=== PATIENT | male | born 1935 | race Caucasian/White ===

== ENCOUNTER 2020-02-20 13:51 | Outpatient (REF) | payer MEDICARE, SELFPAY ==
--- NOTE | 2020-02-20 | XR_ITS ---
EXAMINATION: XR LUMBOSACRAL SPINE CLINICAL INFORMATION: Radiculopathy lumbar region COMPARISON: CT abdomen and pelvis 03/13/2019. TECHNIQUE: Three views of the lumbosacral spine. FINDINGS: There is dextrocurvature lumbar spine with multilevel degenerative disc and degenerative facet changes. There is no lumbar vertebral compression or destructive process. There are degenerative disc changes at all 5 levels with disc narrowing and endplate sclerosis and variable bridging osteophytes. There is borderline retrolisthesis L3 on L4. Ossification right iliolumbar ligament is suggested on frontal view. The SI joints and visualized sacrum are unremarkable. IMPRESSION: 1. Diffuse multilevel degenerative disc and degenerative facet changes. 2. Borderline retrolisthesis L3-L4.
== END 2020-02-20 13:52 | disposition home or self-care (01) ==
LOC: HO.HMGCX 13:51
PROVIDERS: PCP Nurse Practitioner Family; Visit Provider Nurse Practitioner Family
DX: M54.16 Radiculopathy, lumbar region (principal); G89.29 Other chronic pain
CPT/HCPCS: 72100

== ENCOUNTER 2020-04-09 14:13 | Outpatient (REF) | payer MEDICARE, SELFPAY ==
--- NOTE | 2020-04-09 | MR_ITS ---
MR LUMBAR SPINE WITHOUT CONTRAST CLINICAL INFORMATION: Evaluate for stenosis. Right-sided nerve root impingement. COMPARISON: Lumbar spine radiographs 02/20/2020. TECHNIQUE: MRI of the lumbar spine was obtained using routine sequences without contrast. FINDINGS: There is transitional anatomy. For the purposes of this report there are hypoplastic ribs versus articulating transverse processes at the lowermost thoracic type segment and L5 is partially sacralized, incorporated into the sacrum bilaterally. Please correlate with plain films prior to any percutaneous or surgical intervention. Rightward convex scoliotic curvature of the lumbar spine. There is grade 1 retrolisthesis of L2 on L3 and L3 on L4 as well as L4 and L5. There is severe disc volume loss at L1-L2 and there is moderate disc volume loss at L2-L3, L3-L4, L4-L5, and T12-L1. There are Modic type I endplate signal changes at L3-L4. Modic type II endplate signal changes at L1-L2 and L2-L3. There are no acute fractures. Vertebral body heights overall maintained. The conus terminates at the T12 level. L1-L2: Diffuse disc osteophyte complex and mild bilateral facet arthropathy. There is no central canal stenosis. There is mild foraminal encroachment bilaterally. L2-L3: There is a diffuse disc osteophyte complex and there is severe bilateral facet arthropathy and ligamentum flavum thickening. Findings in concert result in severe central canal stenosis and moderate bilateral foraminal stenosis with disc osteophyte contacting the extraforaminal L2 nerve roots bilaterally. L3-L4: Diffuse annular disc bulge and severe bilateral facet arthropathy and ligamentum flavum thickening resulting in severe central canal stenosis and moderate bilateral foraminal stenosis with disc osteophyte contacting the extraforaminal left L3 nerve root. L4-L5: Diffuse disc osteophyte complex and severe bilateral facet arthropathy and ligamentum flavum thickening. Findings in concert result in severe bilateral subarticular zone stenosis with compression of the traversing L5 nerve roots bilaterally as well as moderate to severe right and moderate left foraminal stenosis with compression of the exiting right L4 nerve root. L5-S1: Rudimentary disc contour remains normal. No central canal stenosis and no foraminal stenosis. MR/MR lumbar spine wo con IMPRESSION: - There is transitional anatomy. For the purposes of this report there are hypoplastic ribs versus articulating transverse processes at the lowermost thoracic type segment and L5 is partially sacralized, incorporated into the sacrum bilaterally. Please correlate with plain films prior to any percutaneous or surgical intervention. - Advanced spondylitic changes at the L2-L3 and L3-L4 levels result in severe central canal stenosis at both of these levels. Multilevel subarticular zone stenosis and foraminal stenosis with mass effect on multiple traversing and exiting nerve roots as described. There is a rightward convex scoliotic curvature of the lumbar spine. There Modic type I endplate signal changes at L3-L4.
== END 2020-04-09 14:14 | disposition home or self-care (01) ==
LOC: HO.MRI 14:13
PROVIDERS: Visit Provider Physical Medicine & Rehabilitation
DX: G54.9 Nerve root and plexus disorder, unspecified (principal)
CPT/HCPCS: 72148

== ENCOUNTER 2020-04-10 14:16 | Outpatient (REF) | payer MEDICARE, SELFPAY ==
[2020-04-10 17:25] LABS: Prostate Specific Antigen 1.02 ng/mL (<0.05-4.0)
[2020-04-16 00:47] LABS: Testosterone, Total 249 ng/dL (250-1100)
== END 2020-04-10 14:17 | disposition home or self-care (01) ==
LOC: HO.HMGCLDS 14:16
PROVIDERS: PCP Nurse Practitioner Family; Visit Provider Urology
DX: C61 Malignant neoplasm of prostate (principal); R97.20 Elevated prostate specific antigen [PSA]
CPT/HCPCS: 84153; 84403

== ENCOUNTER → 2020-05-07 10:07 | Outpatient (BNVA) | payer MEDICARE, SELFPAY | PROVIDERS: PCP Nurse Practitioner Family; Visit Provider Urology | DX: C61 Malignant neoplasm of prostate (principal) | CPT/HCPCS: Q3014 ==

== ENCOUNTER 2020-08-10 10:34 | Outpatient (REF) | payer MEDICARE, SELFPAY ==
[2020-08-10 14:38] LABS: PSA,Total (Free>4and<10) 3.25 ng/mL (0.00-4.00)
== END 2020-08-10 10:35 | disposition home or self-care (01) ==
LOC: HO.HMGCLDS 10:34
PROVIDERS: PCP Nurse Practitioner Family; Visit Provider Urology
DX: Z12.5 Encounter for screening for malignant neoplasm of prostate (principal); C61 Malignant neoplasm of prostate; N40.1 Benign prostatic hyperplasia with lower urinary tract symptoms; N13.8 Other obstructive and reflux uropathy
CPT/HCPCS: 36415; 84153

== ENCOUNTER → 2020-08-14 10:23 | Outpatient (BNVA) | payer MEDICARE, SELFPAY | PROVIDERS: Visit Provider Urology | DX: C61 Malignant neoplasm of prostate (principal) | CPT/HCPCS: Q3014 ==

== ENCOUNTER 2020-11-16 12:16 | Outpatient (REF) | payer MEDICARE, SELFPAY ==
[2020-11-16 14:46] LABS: Prostate Specific Antigen 7.37 ng/mL (<0.05-4.0)
== END 2020-11-16 12:17 | disposition home or self-care (01) ==
LOC: HO.HMGCLDS 12:16
PROVIDERS: PCP Nurse Practitioner Family; Visit Provider Urology
DX: Z12.5 Encounter for screening for malignant neoplasm of prostate (principal); N13.8 Other obstructive and reflux uropathy; N40.1 Benign prostatic hyperplasia with lower urinary tract symptoms
CPT/HCPCS: 36415; 84153

== ENCOUNTER → 2020-12-01 09:02 | Outpatient (BNVA) | payer MEDICARE, SELFPAY | PROVIDERS: PCP Nurse Practitioner Family; Visit Provider Urology | DX: C61 Malignant neoplasm of prostate (principal) | CPT/HCPCS: 96402; 99212; J9217 ==

== ENCOUNTER 2021-02-25 13:11 | Outpatient (REF) | payer MEDICARE, SELFPAY ==
[2021-02-25 14:43] LABS: Prostate Specific Antigen 0.75 ng/mL (<0.05-4.0)
[2021-03-08 00:12] LABS: Testosterone, Total 8 ng/dL (250-1100)
== END 2021-02-25 13:12 | disposition home or self-care (01) ==
LOC: HO.HMGCLDS 13:11
PROVIDERS: PCP Nurse Practitioner Family; Visit Provider Urology
DX: Z12.5 Encounter for screening for malignant neoplasm of prostate (principal); C61 Malignant neoplasm of prostate
CPT/HCPCS: 36415; 84153; 84403

== ENCOUNTER → 2021-03-04 08:34 | Outpatient (BNVA) | payer MEDICARE, SELFPAY | PROVIDERS: PCP Nurse Practitioner Family; Visit Provider Urology | DX: Z13.89 Encounter for screening for other disorder (principal) | CPT/HCPCS: Q3014 ==

== ENCOUNTER 2021-05-13 11:22 | Outpatient (REF) | payer MEDICARE, SELFPAY ==
[2021-05-13 14:41] LABS: Prostate Specific Antigen 0.36 ng/mL (<0.05-4.0)
[2021-05-18 10:41] LABS: Testosterone, Total 13 ng/dL (250-1100)
== END 2021-05-13 11:23 | disposition home or self-care (01) ==
LOC: HO.HMGCLDS 11:22
PROVIDERS: PCP Nurse Practitioner Family; Visit Provider Urology
DX: Z12.5 Encounter for screening for malignant neoplasm of prostate (principal); C61 Malignant neoplasm of prostate
CPT/HCPCS: 36415; 84153; 84403

== ENCOUNTER → 2021-05-21 08:43 | Outpatient (BNVA) | payer MEDICARE, SELFPAY | PROVIDERS: PCP Nurse Practitioner Family; Visit Provider Urology | DX: C61 Malignant neoplasm of prostate (principal) | CPT/HCPCS: 96402; 99212; J9217 ==

== ENCOUNTER 2021-07-13 10:58 | Outpatient (REF) | payer MEDICARE, SELFPAY ==
--- NOTE | ~2021-07-13 | MM_ITS ---
EXAMINATION: BONE DENSITOMETRY CLINICAL INDICATION: Other specified disorders of bone density and structure. COMPARISON: Baseline BD dated 04/19/2019. TECHNIQUE: Using a [employer] DXA System (software version: 13.1) manufactured by [employer], dual-energy x-ray absorptiometry was performed of the lumbar spine and left hip. The images are of good technical quality. Summary results are attached. FINDINGS: AP SPINE L1-L2 (excluding L3 and L4): The data of L1-L4 has been changed to exclude the L3 and L4 vertebral bodies, because degenerative changes at these levels may cause overestimation of lumbar spine density. Current: BMD 1.381 g/cm2, Z-score 2.1, T-score 1.5, normal, 8.8% decrease from baseline (<5% change is not significant). Baseline: BMD 1.514 g/cm2. LEFT FEMUR, NECK: Current: BMD 0.863 g/cm2, Z-score 0.0, T-score -1.6, osteopenia. Baseline: BMD 0.972 g/cm2. LEFT FEMUR, TOTAL: Current: BMD 0.981 g/cm2, Z-score 0.5, T-score -0.8, normal, 4.4% decrease from baseline (<5% change is not significant). Baseline: BMD 1.026 g/cm2. IDENTIFIED RISK FACTORS: Height loss. HISTORY OF FRACTURE: None listed. MEDICATIONS: Vitamin D. MM/XR DEXA axial skeleton IMPRESSION: 1. DIAGNOSIS: Osteopenia based on the lowest T-score value of -1.6 in the femoral neck applying World Health Organization criteria. 2. 10-YEAR FRACTURE RISK PREDICTION, FRAX: Major osteoporotic fracture (clinical spine, forearm, hip or shoulder) 6.7%. Hip fracture 2.6%. 3. Treatment Recommendations: NOF guidelines recommend consideration for treatment in postmenopausal women and men age 50 and older presenting with the following: -A hip or vertebral (clinical or morphometric) fracture. -T-score less than or equal to -2.5 at the femoral neck or spine after appropriate evaluation to exclude secondary causes. -Low bone mass at the hip or spine and a 10-year fracture probability by FRAX of greater than or equal to 3% for hip fracture or greater than or equal to 20% for major osteoporotic fracture based on the [place] adapted WHO algorithm. 4. Other Recommendations: All treatment decisions require clinical judgment and consideration of individual patient factors, including patient preferences, comorbidities, previous drug use, risk factors not captured in the FRAX model (e.g. frailty, falls, vitamin D deficiency, increased bone turnover, interval significant decline in bone density) and possible under or overestimation of fracture risk by FRAX. Additional medical evaluation for secondary cause of low bone mineral density may be appropriate. FUTURE SCAN RECOMMENDATION: People with diagnosed cases of osteoporosis or at high risk for fracture should have regular bone mineral density tests. For patients eligible for Medicare, routine testing is allowed once every 2 years. The testing frequency can be increased to one year for patients who have rapidly progressing disease, those who are receiving or discontinuing medical therapy to restore bone mass, or have additional risk factors.
== END 2021-07-13 10:59 | disposition home or self-care (01) ==
LOC: HO.MAMMO 10:58
PROVIDERS: PCP Nurse Practitioner Family; Visit Provider Urology
DX: Z13.820 Encounter for screening for osteoporosis (principal); M85.88 Other specified disorders of bone density and structure, other site; C61 Malignant neoplasm of prostate; Z79.899 Other long term (current) drug therapy
CPT/HCPCS: 77080

== ENCOUNTER → 2021-08-19 08:22 | Outpatient (BNVA) | payer MEDICARE, SELFPAY | PROVIDERS: PCP Nurse Practitioner Family; Visit Provider Urology | DX: M85.80 Other specified disorders of bone density and structure, unspecified site (principal); C61 Malignant neoplasm of prostate | CPT/HCPCS: Q3014 ==

== ENCOUNTER 2021-11-25 08:44 | Outpatient (REF) | payer MEDICARE, SELFPAY ==
[2021-12-01 11:36] LABS: Testosterone, Total 10 ng/dL (250-1100)
== END 2021-11-25 08:45 | disposition home or self-care (01) ==
LOC: HO.HMGCLDS 08:44
PROVIDERS: Absent Provider Urology; PCP Nurse Practitioner Family; Visit Provider Nurse Practitioner Family
DX: Z12.5 Encounter for screening for malignant neoplasm of prostate (principal); C61 Malignant neoplasm of prostate
CPT/HCPCS: 36415; 84153; 84403

== ENCOUNTER → 2021-12-02 08:35 | Outpatient (BNVA) | payer MEDICARE, SELFPAY | PROVIDERS: PCP Nurse Practitioner Family; Visit Provider Urology | DX: C61 Malignant neoplasm of prostate (principal); E29.1 Testicular hypofunction | CPT/HCPCS: 96372; 96402; 99212; J0897; J9217 ==

== ENCOUNTER 2022-05-31 13:19 | Outpatient (REF) | payer MEDICARE, SELFPAY ==
[2022-05-31 15:35] LABS: Prostate Specific Antigen 0.35 ng/mL (<0.05-4.0)
[2022-06-05 13:14] LABS: Testosterone, Total 10 ng/dL (250-1100)
== END 2022-05-31 13:20 | disposition home or self-care (01) ==
LOC: HO.HMGCLDS 13:19
PROVIDERS: PCP Nurse Practitioner Family; Visit Provider Urology
DX: Z12.5 Encounter for screening for malignant neoplasm of prostate (principal); E29.1 Testicular hypofunction; C61 Malignant neoplasm of prostate
CPT/HCPCS: 36415; 84153; 84403

== ENCOUNTER → 2022-06-07 10:21 | Outpatient (BNVA) | payer MEDICARE, SELFPAY | PROVIDERS: PCP Nurse Practitioner Family; Visit Provider Urology | DX: C61 Malignant neoplasm of prostate (principal) | CPT/HCPCS: Q3014 ==

== ENCOUNTER 2022-11-21 10:13 | Outpatient (REF) | payer MEDICARE, SELFPAY ==
[2022-11-21 14:45] LABS: Prostate Specific Antigen 0.69 ng/mL (<0.05-4.0)
[2022-11-25 14:48] LABS: Testosterone, Total 22 ng/dL (250-1100)
== END 2022-11-21 10:14 | disposition home or self-care (01) ==
LOC: HO.HMGCLDS 10:13
PROVIDERS: PCP Nurse Practitioner Family; Visit Provider Urology
DX: Z12.5 Encounter for screening for malignant neoplasm of prostate (principal); C61 Malignant neoplasm of prostate
CPT/HCPCS: 36415; 84153; 84403

== ENCOUNTER 2022-12-02 10:33 | Outpatient (AMB) | payer MEDICARE, SELFPAY ==
--- NOTE | 2022-12-02 10:36 | MHC.OFFVIS ---
Intake Intake Visit Reasons: 6M PSA/Testo(pending) Intake Note: Pt presents to the office today for a 6 month PSA, Testosterone follow-up. Allergies No Known Allergies [No Known Allergies*] Allergy (Verified 12/02/22 10:36) Medication List - Last Reconciled 12/02/22 by Gato Boss MD aspirin (Adult Aspirin Regimen) 81 mg PO DAILY atorvastatin 10 mg PO DAILY calcium carbonate (Calcium 500) 500 mg PO BID 90 days celecoxib 200 mg PO DAILY cholecalciferol (vitamin D3) 800 units PO DAILY 90 days gabapentin 300 mg PO DAILY lisinopril 20 mg PO DAILY HPI HPI Comments History of Present Illness Details Steve is a pleasant male. He is a patient of Dr. Lutz. He is seen for following urologic conditions - prostate cancer - osteopenia PSA stable. Off finasteride. Continue 4 monthly surveillance Osteopenia - Verified that has prescriptions for calcium and vitamin D Prostate cancer: High-grade [place] 9 - February 2019 Management with intermittent hormone therapy Last GnRH 11/26 - 07/08 Prostate cancer was diagnosed 02/23 Dr Boss. Diagnosis was reached by needle biopsy, for elevated PSA, PSA at diagnosis 21 The [place] grade is February 2019 3 x , 4+4 = 8 2 x, 4+5 = 9 PNI +, LVI -. TNM Classification of Malignant Tumours (TNM) T2b. The [place] (NCCN) risk category is High Risk (PSA > 20, Gl 8+, T3). Initial therapy included 02/23 GnRH (45mg), finasteride. Recent labs included 05/27 0.8 T 6 10/25 PSA 0.3 T 8, 04/26 PSA 1.0 T 249 - 07/26 PSA 3.2, 11/25 7.6, 02/25 0.7, 05/29 0.4 T 13, 10/27 0.3 10, 05/30 0.3 T 10, 11/27 0.7 T 22 Recent imaging included 02/23 a DEXA scan, normal 03/26 Bone scan - degenerative 03/26 , a CT (computed tomography) scan - NAD - 07/27 bone density osteopenic [facility] Medical History Lumbar back pain Surgical History No pertinent past surgical history Family History Father Smoker Mother No problems noted. Brother No problems noted. Daughter No problems noted. Daughter No problems noted. Maternal Grandfather No problems noted. Maternal Grandmother No problems noted. Paternal Grandfather No problems noted. Paternal Grandmother No problems noted. Sister No problems noted. Sister No problems noted. Social History Alcohol intake: current Alcohol intake frequency: holidays/special occasions only Review of Systems Const Denies chills and Denies fever(s) Card Reports no additional complaints and Denies syncope Resp Denies cough GI Denies abdominal pain and Denies heartburn Reports as per HPI and Denies change in libido Neuro Denies syncope Psych Denies change in libido Endo Denies change in libido Physical Exam Const General: cooperative, healthy appearing, comfortable and no acute distress Orientation/consciousness: patient oriented x3 HEENT Face and sinus: Yes normal facial exam Mouth: moist mucous membranes Neck Neck: Yes normal visual inspection, Yes full ROM and Yes trachea midline Chest Chest palpation & inspection: normal inspection of the chest Resp Effort & Inspection: normal respiratory effort, able to speak in complete sentences and no respiratory distress GI Inspection: Yes normal to inspection Back/Spine/Pelvis Cervical Spine: normal cervical lordosis Thoracic/Lumbar Spine: thoracic and lumbar spine normal to inspection Skin General skin exam: no rashes or lesions noted Neuro General: patient oriented x3, gait normal, tone normal and moves all extremities Extrem General: Yes normal to inspection and Yes capillary refill normal Assessment & Plan Assessment & Plan (1) Prostate cancer: Comment: High-grade prostate cancer 2019 intermittent hormone therapy - Last GnRH 11/26 Code(s): C61 - Malignant neoplasm of prostate Plan Four month follow-up PSA Orders: Orders Prostate Specific Antigen 4 Months C61 - Malignant neoplasm of prostate Patient Instructions: Imaging studies, laboratory and physical exam results were discussed and reviewed in detail. No major barriers to patient understanding were identified. An opportunity to ask questions regarding the treatment plan was provided. All questions were answered. The patient expressed understanding and agreement with the above treatment plan. The patient is aware they should contact our office by phone for worsening of their current condition or the appearance of new urologic symptoms. Compliance is encouraged with any medications and followup testing that is ordered. It is a privilege to participate in the urologic care of your patient. If you have any questions or concerns regarding treatment for the above conditions, or other urologic issues, please do not hesitate to contact me. The office telephone contact is [phone]. This note is constructed using voice recognition software. While every effort has been made to ensure accuracy apparel machinery instructor errors may have been included. Yours sincerely, Dr Gato Boss MD, [facility] - Urology Providers of Expert, Compassionate Care for the Genitourinary System Coding Level of Care Code Est Pt Level 3 (62226) Diagnoses Prostate cancer C61
== END 2022-12-02 11:06 | disposition home or self-care (01) ==
PROVIDERS: Visit Provider Urology
DX: C61 Malignant neoplasm of prostate (principal)
CPT/HCPCS: 99213

== ENCOUNTER → 2022-12-02 10:33 | Outpatient (BNVA) | payer MEDICARE, SELFPAY | PROVIDERS: Visit Provider Urology | DX: C61 Malignant neoplasm of prostate (principal); M85.80 Other specified disorders of bone density and structure, unspecified site; Z12.5 Encounter for screening for malignant neoplasm of prostate; Z79.82 Long term (current) use of aspirin; Z79.899 Other long term (current) drug therapy | CPT/HCPCS: 99212 ==

== ENCOUNTER 2023-08-24 10:47 | Outpatient (REF) | payer MEDICARE, SELFPAY ==
[2023-08-24 13:13] LABS: MANUAL DIFF FLAG NO
[2023-08-24 13:28] LABS: Basophils Absolute Auto 0.1 X10*3/uL (0.0-0.2); Basophils Percent Auto 0.9 % (0-2); Eosinophils Absolute Auto 0.2 X10*3/uL (0.0-0.4); Eosinophils Percent Auto 2.9 % (0-4); Hematocrit 39.3 % (42.0-52.0); Hemoglobin 13.4 g/dl (14.0-18.0); Imm Gran Abs Auto 0.01 X10*3/uL (0.00-0.03); Imm Gran Pct Auto 0.2 % (0.0-0.4); Lymphocytes Absolute Auto 2.4 X10*3/uL (1.2-4.9); Lymphocytes Percent Auto 43.8 % (20-40); Mean Corpuscular HGB Conc 34.1 g/dl (31.0-36.0); Mean Corpuscular Hemoglobin 32.1 pg (27.0-33.0); Mean Corpuscular Volume 94.2 fL (80.0-98.0); Monocytes Absolute Auto 0.5 X10*3/uL (0.1-1.2); Monocytes Percent Auto 9.2 % (2-11); Neutrophils Absolute Auto 2.4 x10*3/uL (2.0-8.3); Platelet Count 235 X10*3/uL (160-400); Red Blood Count 4.17 X10*6/uL (4.60-5.80); Red Cell Distribution Width 12.8 % (11.0-16.0); White Blood Count 5.6 X10*3/uL (4.8-10.8)
[2023-08-24 14:00] LABS: Alanine Aminotransferase 17 U/L (0-40); Albumin Level 4.3 g/dL (3.5-5.0); Alkaline Phosphatase 87 U/L (39-117); Anion Gap 10 (12-20); Aspartate Amino Transferase 21 U/L (5-37); Bilirubin Total 0.6 mg/dL (0.0-1.0); Blood Urea Nitrogen 24 mg/dL (9-16); Calcium 9.8 mg/dL (8.4-10.2); Carbon Dioxide 26 mmol/L (22-29); Chloride 107 mmol/L (96-108); Cholesterol 129 mg/dL (<200); Estimated Glomerular Filt Rate > 60; Glucose Fasting 93 mg/dL (60-99); HDL Cholesterol 46 mg/dL (>40); LDL Cholesterol Calculated 68 mg/dL (<100); Potassium 4.6 mmol/L (3.3-5.1); Sodium 138 mmol/L (135-145); Total Protein 7.2 g/dL (6.5-8.0); Triglycerides 76 mg/dL (<150)
[2023-08-24 14:04] LABS: Prostate Specific Antigen 5.77 ng/mL (<0.05-4.0)
== END 2023-08-24 10:48 | disposition home or self-care (01) ==
LOC: HO.HMGCLDS 10:47
PROVIDERS: Urology; PCP Nurse Practitioner Family; Visit Provider Nurse Practitioner Family
DX: Z12.5 Encounter for screening for malignant neoplasm of prostate (principal); C61 Malignant neoplasm of prostate; I10 Essential (primary) hypertension; E78.5 Hyperlipidemia, unspecified
CPT/HCPCS: 36415; 80053; 80061; 84153; 84443; 85025

== ENCOUNTER 2023-08-29 15:23 | Outpatient (AMB) | payer MEDICARE, SELFPAY ==
[2023-08-29 15:29] VITALS: BP 122/62; PULSE 80; O2SAT 98; BMI 27.5
--- NOTE | 2023-08-29 15:29 | MHC.PC.OV ---
Vital Signs 08/29/23 15:29 Height 5 ft 3 in Weight 155 lb BMI 27.5 BP 122/62 Blood Pressure Location Lt brachial Position Sitting Pulse 80 Pulse Source Pulse Oximeter Pulse Oximetry (%) 98 Oxygen Delivery Method Room Air Intake Visit Reasons: 6 month follow up Intake Note: pt is here for 6 month follow up Allergies No Known Allergies [No Known Allergies*] Allergy (Verified 08/29/23 16:36) Medication List - Last Reconciled 08/29/23 by NAILA Ball aspirin (Adult Aspirin Regimen) 81 mg PO DAILY atorvastatin 10 mg PO DAILY calcium carbonate (Calcium 500) 500 mg PO BID 90 days celecoxib 200 mg PO DAILY cholecalciferol (vitamin D3) 800 units PO DAILY 90 days gabapentin 300 mg PO DAILY lisinopril 20 mg PO DAILY Tobacco use date assessed: 08/29/23 Fall risk assessment: 2 + Falls in past year Last assessed Fall Risk: 08/29/23 Dental Screening Dental Screen Date: 08/29/23 Did you have a dental visit in the last 12 months?: No Did you have a dental problem in the last 6 months where you did not have access to dental care?: No Was dental information given to patient?: Patient declined HPI 6 month follow up HPI Details HTN: Blood pressure is stable, managed with lisinopril 20mg. Denies chest pain, shortness of breath, headache, dizziness, and blurred vision. 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 He reports that this is causing him to fall frequently at home. Will refer to PT for strength training home exercises. Patient did not tolerate higher doses of gabapentin. [facility] Medical History Lumbar back pain Surgical History No pertinent past surgical history Family History Father Smoker Mother No problems noted. Brother No problems noted. Daughter No problems noted. Daughter No problems noted. Maternal Grandfather No problems noted. Maternal Grandmother No problems noted. Paternal Grandfather No problems noted. Paternal Grandmother No problems noted. Sister No problems noted. Sister No problems noted. Social History (Reviewed 08/29/23 @ 16:37 by Candido Wren, [facility]) Housing: House Alcohol intake: current Alcohol intake frequency: holidays/special occasions only Patient Tobacco Use Status: Never used Tobacco e-Cigarette/Vaping Use: Never Used Current occupational status: retired Cognitive needs: No Hearing needs: No Vision needs: Yes Questionnaire PHQ-9 Over the last 2 weeks, how often have you been bothered by any of the following problems? 1. Little interest or pleasure in doing things: not at all 2. Feeling down, depressed, or hopeless: not at all 3. Trouble falling or staying asleep, or sleeping too much: not at all 4. Feeling tired or having little energy: not at all 5. Poor appetite or overeating: not at all 6. Feeling bad about yourself - or that you are a failure or have let yourself or your family down: not at all 7. Trouble concentrating on things, such as reading the newspaper or watching television: not at all 8. Moving or speaking so slowly that other people could have noticed. Or the opposite - being so fidgety or restless that you have been moving around a lot more than usual: not at all 9. Thoughts that you would be better off or of hurting yourself in some way: not at all Total score: 0 Depression Screening Interpretation: Negative Depression Screening Done: Yes 29883 - PHQ-9 Billing: Yes Source: Developed by Drs. Adam Guy, Maral Marks, Shad Washington and colleagues, with an educational zenobia from [employer]. Thrive Questionnaire Date Thrive assessed: 08/29/23 I am a: Patient What is your living situation today?: I have a steady place to live Within the past 12 months, did the food you bought not last and you didn't have the money to get more?: Never true Within the past 12 months, did you worry whether your food would run out before you got money to buy more?: Never true Do you have trouble paying for medicines?: No Do you have trouble getting transportation to medical appointments?: No Do you have trouble paying your heating and electricity bill?: No Do you have trouble taking care of your child, family member or friend?: No Do you have trouble with day-to-day activities such as bathing, preparing meals, shopping, managing finances, etc.?: No Are you currently unemployed and looking for a job?: No Are you interested in more education?: No Please select the resources that you would like help with: None Currently or been in a relationship where the following occur: no concerns reported THRIVE Score: 0 AUDIT C Alcohol Use Questionnaire (AUDIT-C) 1. How often do you have a drink containing alcohol?: 4 or more times a week 2. How many drinks containing alcohol do you have on a typical day when you are drinking?: 1 or 2 3. How often do you have six or more drinks on one occasion?: Never Total Score: 4 Score Reviewed/Action Taken: Yes NABEEL-7 AMB Questionnaire NABEEL-7 Date NABEEL - 7 assessed: 08/29/23 Feeling nervous, anxious, or on edge: 0 = Not at all Not being able to stop or control worryin = Not at all Worrying too much about different things: 0 = Not at all Trouble relaxin = Not at all Being so restless that it is hard to sit still: 0 = Not at all Becoming easily annoyed or irritable: 0 = Not at all Feeling afraid as if something awful might happen: 0 = Not at all Total NABEEL-7 score (0-4 normal; 5-9 mild; 10-14 moderate; 15-21 severe): 0 Source: Developed by Drs. Adam Guy, Maral Marks, Shad Washington and colleagues, with an educational zenobia from [employer]. NABEEL-7 Assessment Billing NABEEL-7 Assessment Tool: NABEEL-7 Assessment 31504 Review of Systems Const Reports as per HPI Physical exam (Primary Care) Vital Signs: Last Vital Signs Pulse 80 08/29/23 15:29 BP 122/62 08/29/23 15:29 Pulse Ox 98 08/29/23 15:29 Oxygen Delivery Method Room Air 08/29/23 15:29 BMI result Body Mass Index 27.5 Tobacco/Smoking Status: Tobacco use Status Tobacco use date assessed 08/29/23 08/29/23 15:35 Patient Tobacco Use Status Never used Tobacco 08/29/23 15:35 e-Cigarette/Vaping Use Never Used 08/29/23 15:35 PHQ-9: PHQ-9 Score PHQ-9: Total score 0 08/29/23 15:35 Depression Screening Interpretation: Negative Thrive Assessment: Date of Thrive Assessment Date Thrive assessed 08/29/23 08/29/23 15:35 Currently or been in a relationship where the following occur: no concerns reported Const General: cooperative Orientation/consciousness: patient oriented x3 Resp Effort & Inspection: normal respiratory effort Auscultation: clear to auscultation bilaterally Cardio Rate: regular rate Rhythm: regular rhythm Heart sounds: S1 normal heart sound present, S2 normal heart sound present and no murmurs Neuro General: patient oriented x3 Extrem Other: no edema to BLE Psych Appearance: grossly normal Mental Status: mental status grossly normal Speech and movement: Normal speech and movement present Affect: normal affect Attitude: cooperative Thought process: Normal thought process present Thought content: Normal thought content present Insight: Good insight present (Psych) Judgement: Good judgement present (Psych) Assessment and Plan Assessment & Plan (1) Weakness: Code(s): R53.1 - Weakness Plan: Referring to Physical therapy for further eval and treatment plan. Patient is currently using a walker, and doing well with this. (2) HTN (hypertension): Code(s): I10 - Essential (primary) hypertension Plan: Stable Plan The patient agreed to the use of a medical apparatus model maker for this encounter. Scribed for NAILA Barraza by Shruthi Russell medical apparatus model maker, on 08/29/2023 at 15:40 EST. Orders: Orders PT Evaluation and Treatment Today R53.1 - Weakness Medications: Refilled lisinopril 20 mg PO DAILY 90 tabs 2RF Coding Level of Care Code Est Pt Level 3 (58142) Diagnoses Weakness R53.1 HTN (hypertension) I10 Additional Codes NABEEL-7 Assessment Billing - NABEEL-7 Assessment Tool: NABEEL-7 Assessment 04860 ([id number])
== END 2023-08-29 17:16 | disposition home or self-care (01) ==
PROVIDERS: PCP Nurse Practitioner Family; Visit Provider Nurse Practitioner Family
DX: R53.1 Weakness (principal); I10 Essential (primary) hypertension
CPT/HCPCS: 99213

== ENCOUNTER 2024-05-13 09:49 | Inpatient (IN) | payer MEDICARE, SELFPAY ==
--- NOTE | ~2024-05-13 | CT_ITS ---
EXAMINATION: CT HEAD WITHOUT CONTRAST (STROKE PROTOCOL) CLINICAL INFORMATION: Stroke protocol. Expressive apices are COMPARISON: None available. TECHNIQUE: Contiguous axial imaging was performed from the skull base to vertex without intravenous administration of contrast. This CT examination was performed using dose optimization techniques as appropriate, variously including the following: *Automated exposure control *Adjustment of mA and/or kV according to patient size (this includes techniques or standardized protocols for targeted exams where dose is matched to indication/reason for exam; i.e. extremities or head) *Use of iterative reconstruction technique [id number] FINDINGS: There is no acute intra-axial, extra-axial bleed, masses or midline shift. There is no acute infarction evolution. There is no edema. The zeng to white matter differentiation is maintained normal. The lateral ventricles are symmetrical in size but moderately enlarged. There is mild periventricular hypodensity suggestive of chronic small vessel ischemic changes. On windows reveal no calvarial abnormality. There is a small polyp or retention cyst in left maxillary sinus. Rest of the paranasal sinuses and mastoid air cells are well-aerated. CT/CT head for STROKE IMPRESSION: No acute intracranial process seen. This critical result was discussed with Dr. Ravinder Garsia at 10:05 A.M. on 05/13/2024. It was ascertained that the content and urgency of the report was understood at the time of direct communication. Electronically signed by: Gregorio Shell MD 05/13/2024 10:[address] [facility]
--- NOTE | ~2024-05-13 | XR_ITS ---
EXAMINATION: XR CHEST CLINICAL INFORMATION: Cough /uri COMPARISON: None available. TECHNIQUE: Frontal view of the chest was obtained. FINDINGS: The lungs are hypoexpanded without any acute pneumonic process. The heart size and pulmonary vascularity is normal. There is mild spondylosis. No aggressive lytic or sclerotic process seen. XR/XR chest 1V IMPRESSION: Hypoexpanded lungs without any acute pneumonic process. Electronically signed by: Gregorio Shell MD 05/14/2024 12:07 PM [facility]
--- NOTE | ~2024-05-13 | CT_ITS ---
EXAMINATION: CTA NECK WITH CONTRAST (STROKE) CTA BRAIN WITH CONTRAST (STROKE) CLINICAL INFORMATION: Expressive aphasia. Suspect acute stroke. Assess for major vessel occlusion. Please call report. COMPARISON: None available. Correlated to noncontrast CT brain dated May 13, 2024. TECHNIQUE: CTA of the head and neck was performed in the axial plane from the mediastinum to the skull vertex using 70 mL Omnipaque 350 intravenous contrast. Additional reformatted multiplanar images including maximum intensity projection MIP images are generated on the CT workstation. This CT examination was performed using dose optimization techniques as appropriate, variously including the following: *Automated exposure control *Adjustment of mA and/or kV according to patient size (this includes techniques or standardized protocols for targeted exams where dose is matched to indication/reason for exam; i.e. extremities or head) *Use of iterative reconstruction technique Dose: 1588 mGy centimeters FINDINGS: The degree of stenosis determined by criteria similar to NASCET. Brain: No acute intracranial hemorrhage, mass effect, midline shift, hydrocephalus or herniation. Bilateral multifocal patchy and confluent deep periventricular white matter hypodensities involving centrum semiovale and hudson radiata. Prominence of the extra-axial CSF spaces, cerebral sulci and ventricles. Calcified plaques in the cavernous supraclinoid segments both ICA and V4 segments of the vertebral arteries and basilar artery. Sosa-white matter differentiation is normal. Retention cysts versus polyps, both maxillary sinuses. Tympanic cavities and mastoid cells are patent. Edentulous, maxillary.. Chest CTA: Calcified plaques throughout the thoracic aortic arch and its main branches without focal stenosis or intimal flap or IV contrast extravasation. Neck CTA: Right CCA: No focal stenosis or intimal flap. Normal patency. Tortuosity. Right ICA: Focal calcified plaque in the origin representing 50% stenosis. No intimal flap. Normal patency. Left CCA: Normal patency. Calcified plaques. Tortuosity. No focal stenosis or intimal flap. Left ICA: Normal patency. Mixed plaques at the origin with a focal stenosis representing 70% stenosis. No intimal flap. Tortuosity. V1/V2 segments: Normal patency. Calcified plaques. No focal stenosis. No intimal flap. Codominant vertebral arteries. Brain CTA: Anterior cerebral circulation: ICAs: Calcified plaques in the cavernous supraclinoid segments. Normal patency. No focal stenosis. No abrupt cut off. Ophthalmic arteries are patent, bilaterally. MCA's: Normal patency. No focal stenosis. No abrupt cut off. Bifurcation/trifurcation demonstrated normal patency without focal stenosis or contour irregularity. ACAs: Absent/atretic right A1 segment. Normal patency without focal stenosis or abrupt cut off, right VAZQUEZ both A2/A3 segments. Anterior communicant artery is patent. Left posterior clinic and artery is patent. Posterior cerebral circulation: V3/V4 segments are patent without focal stenosis or intimal flap. Posterior inferior cerebellar arteries and left anterior inferior cerebellar artery are patent. Basilar artery is patent without focal stenosis or intimal flap. Superior cerebellar arteries are patent. toxicology teacher: Normal patency. No focal stenosis or abrupt cut off. Main cerebral venous sinuses are patent without intraluminal filling defects. There is a dominant right sigmoid and transverse sinus. CT/CT angio head neck STROKE IMPRESSION: No main cerebral artery occlusion or embolus or aneurysm. No dissection, vessels of the neck. 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 Discussed with the medical team in the emergency department at 10:26 AM. This critical test result is communicated to: Electronically signed by: Rajan Durant MD 05/13/2024 10:39 AM [facility]
--- NOTE | ~2024-05-13 | MR_ITS ---
EXAMINATION: MR BRAIN WITHOUT IV CONTRAST HISTORY: aphasia TECHNIQUE: Sagittal T1, and axial T1, FLAIR, T2, gradient echo, and diffusion weighted MR images of the brain were obtained. COMPARISON: Comparison is made with the prior examination dated 03/08/2019. Correlation is also made with unenhanced head CT dated 05/13/2024. FINDINGS: There is diffuse prominence of the ventricular system and cortical sulci, consistent with atrophy. Periventricular and subcortical white matter hyperintensities are noted on the FLAIR and T2-weighted images which are nonspecific, but often seen in the setting of small vessel ischemic disease. There is a small to moderate sized focus of restricted diffusion in the left posterior frontal lobe, consistent with an acute infarct. There is no mass effect or midline shift. No intra or extra-axial fluid collections are identified. Normal vascular flow voids are noted in the basilar and carotid arteries. The visualized paranasal sinuses are clear. MR/MR head/brain wo con IMPRESSION: Acute left posterior frontal infarct. Electronically signed by: Adam Arreola MD 05/15/2024 01:31 PM [facility]
--- NOTE | 2024-05-13 09:55 | ED.NEUROSD ---
HPI - Neuro Symptoms/Deficit General Chief Complaint: Stroke Stated Complaint: STROKE ALERT,LKWT 6AM,-THINNERS PER EMS Time Seen by Provider: 05/13/24 09:55 Source: family (, Kallie) and EMS Mode of arrival: EMS Limitations: no limitations History of Present Illness ED Provider: Dr. Ed Garsia HPI Narrative: 88-year-old male with a history of dyslipidemia, osteopenia, hypertension, prostate cancer was brought to emergency department by ambulance for evaluation expressive dysphagia. Information was obtained with the patient's who is here in the emergency department. She states that the patient woke up at around 05:30 this morning and he was having difficulty speaking. This persisted therefore she called an ambulance and had the patient brought to emergency department. She states that they went to bed last night at around 23:30 and the patient was speaking normally at that time. I evaluated the patient on the EMS stretcher. Patient had an expressive aphasia and was sent immediately to CT head without contrast and CT angiogram head and neck. Related Data Home Medications ?Medication ?Instructions ?Recorded ?Confirmed aspirin 81 mg tablet,delayed 81 mg PO DAILY 03/30/20 05/13/24 release (Adult Aspirin Regimen) atorvastatin 10 mg tablet 10 mg PO BEDTIME 05/13/24 05/13/24 lisinopril 20 mg tablet 20 mg PO BEDTIME 05/13/24 05/13/24 Allergies Allergy/AdvReac Type Severity Reaction Status Date / Time No Known Allergies Allergy Verified 05/13/24 10:11 [No Known Allergies*] Review of Systems Review of Systems: Yes all other systems are reviewed and are negative PMFSH Past Medical History Medical History Lumbar back pain Surgical History No pertinent past surgical history Family History Family History Father Smoker Mother No problems noted. Brother No problems noted. Daughter No problems noted. Daughter No problems noted. Maternal Grandfather No problems noted. Maternal Grandmother No problems noted. Paternal Grandfather No problems noted. Paternal Grandmother No problems noted. Sister No problems noted. Sister No problems noted. Social History Social History Household Members: Significant Other Housing: House Do you presently have visiting nurse or other home services: No Alcohol intake: current Alcohol intake frequency: 0-2 drinks per day Alcohol type: wine Patient Tobacco Use Status: Never used Tobacco Smoked in Last 30 Days: No e-Cigarette/Vaping Use: Never Used Use of substances other than those prescribed or required for medical reasons: No Currently Displaying Signs/Symptoms of Drug Intoxication Withdrawal: No Have you been hit, kicked, punched, or otherwise hurt by someone within the past year? If so, by whom?: No Do you feel safe in your current relationship?: Yes Is there a partner from a previous relationship who is making you feel unsafe now?: No Are you made to feel afraid or neglected: No Advance Directives: No Advance Directives Information Provided: Yes Do you have a plan to hurt others: No Plan Recently lost weight without trying: No Nutrition Risks: No Nutritional Risk Poor oral hygiene: No Current occupational status: retired Cognitive needs: No Hearing needs: No Vision needs: Yes Physical Exam Vital Signs: Vital Signs: Last Vital Signs Temp 97.4 F 05/14/24 07:07 Pulse 71 05/14/24 07:07 Resp 18 05/14/24 07:07 BP 160/88 H 05/14/24 07:07 Pulse Ox 96 05/14/24 07:07 O2 Del Method Room Air 05/14/24 07:07 BMI result Body Mass Index 30.6 Exam: General: Awake, alert in no distress, expressive aphasia Head: Normocephalic, atraumatic EENT: PERRL, Lids normal, sclera normal, conjunctiva normal, nose normal , ears normal, throat without erythema or exudates Neck: Supple, no adenopathy Lung: breath sounds symmetric, no wheezing, rales or rhonchi Chest: symmetric movement, nontender Heart: regular rate and rhythm, normal S1, S2 no murmurs or rubs Abdomen: soft, non-tender, nondistended, normal bowel sounds Back: no vertebral tenderness, no CVAT Extremities: no deformities, moves all extremities symmetrically Neuro: General: Awake, alert, oriented, normal speech Cranial nerves: cranial nerves intact, moves all extremities symmetrically Strength: Patient able to hold both extremities up against gravity without an the difficulty, he does have in his shoe with a his right shoulder and can not lift his right arm as high as his left arm Cerebellar: Good hztbvy-kl-vklw-to-finger, normal heel to bess Psych: Pleasant, cooperative Medications Administered Generic Name Dose Route Start Last Admin Trade Name Freq PRN Reason Stop Dose Admin Atorvastatin Calcium 40 mg 05/13/24 13:15 05/13/24 13:27 Atorvastatin Calcium 40 Mg Tablet PO 40 mg DAILY JACK Administration Heparin Sodium/Sodium Chloride 25,000 unit in 250 mls @ 0 mls/hr 05/13/24 14:30 05/14/24 08:12 Heparin Sodium,Porcine/1/2ns IVCONT 7.64 units/kg/hr .Q0M JACK 6.56 mls/hr Titration Protocol Per Protocol Discontinued Medications Generic Name Dose Route Start Last Admin Trade Name Freq PRN Reason Stop Dose Admin Aspirin 162 mg 05/13/24 14:23 05/13/24 14:44 Aspirin 81 Mg Tab.Chew PO 05/13/24 14:24 162 mg ONCE STA Administration Heparin Sodium (Porcine) 4,000 unit 05/13/24 14:29 05/13/24 14:57 Heparin Sodium,Porcine 5,000 Unit/Ml Vial IVPUSH 05/13/24 14:30 4,000 unit ONCE ONE Administration Iohexol 100 ml 05/13/24 10:11 05/13/24 10:11 Iohexol 350 Mg/Ml 100 Ml Infus..Btl IV 05/13/24 10:12 70 ml ONCE ONE Administration Medical Decision Making Medical Decision Making [facility] Narrative: 88-year-old male with a history of dyslipidemia, osteopenia, hypertension, prostate cancer was brought to emergency department by ambulance for evaluation expressive dysphagia with last well-known time 23:30 hours last night. noted that the patient was having difficulty with word finding and talking when the patient woke up this morning at 05:30 hours. Symptoms persisted therefore the called an ambulance the patient was brought to emergency department for evaluation. Patient's examination did reveal a mild to moderate expressive aphasia otherwise exam was unremarkable. Differential diagnosis: ?Includes but is not limited to stroke, TIA, arrhythmia, hypoglycemia, electrolyte abnormalities, anemia Course: 11:53 My impression of the patient's laboratory evaluation is as follows: CBC was normal. Glucose was elevated 130. CMP was unremarkable. Troponin was elevated 82.8. Alcohol was below detectable limits. Twelve EKG revealed a sinus rhythm, patient will be placed on partridge farmer to look for paroxysmal atrial fibrillation. CT scan of the head and CT angiogram of the head and neck revealed no significant abnormalities. I did discuss the patient's presentation with the covering neurologist, Dr. Reyes. This patient was outside of the tPA window Therefore he was not a TNK candiate. Also there was no retrievable large vessel blood clot requiring intervention. The patient will be admitted to the hospitalist service for further evaluation of the stroke. The patient does have an elevated troponin but he was asymptomatic. I did order a 3 hour repeat troponin for 13:00 hours. 14:15 Patient's 1st troponin was 82.8. Repeat troponin 3 hours later was 155.3 which is a greater than 50% delta. Patient did pass his bedside swallow test and I did order aspirin 162 mg orally. I did discuss the patient's presentation over tiger text with the covering pathology laboratory director, Dr. Dawson who recommended treating the patient has an NSTEMI with aspirin, heparin and getting an echocardiogram. I did discuss heparin with the covering neurologist, Dr. Reyes and he felt that as long as the CT head is negative for bleed at this time, then there is no contraindication for heparin therapy. NSTEMI heparin does protocol was ordered. I also discussed these was recommendations with the covering hospitalist, Dr. Bahena. I did discuss heparin with the patient as well, although he has [id number] expressive aphasia he was able to comprehend discussion. He did ask me how it was possible to have a heart attack with no chest pain and I told him that sometimes medical illness can cause a stress on the heart and cause heart damage ( type 2 myocardial injury). Admission/Observation Consideration of admission/observation: Escalation of care including admission/observation considered (Yes) Consult Healthcare Provider Management of the patient was discussed with: Hospitalist (Nurse practitioner, Didi Chávez) and Director Airport (Neurologist, Dr. Reyes) Lab Data MDM Lab Attestation statement: I reviewed the patient's lab results. 05/14/24 07:26 05/14/24 07:26 Labs: Lab Results 05/13/24 05/13/24 05/13/24 Range/Units 09:57 10:02 10:03 WBC 5.7 (4.8-10.8) X10*3/uL RBC 4.27 L (4.60-5.80) X10*6/uL Hgb 13.7 L (14.0-18.0) g/dl Hct 40.6 L (42.0-52.0) % MCV 95.1 (80.0-98.0) fL MCH 32.1 (27.0-33.0) pg MCHC 33.7 (31.0-36.0) g/dl RDW 13.5 (11.0-16.0) % Plt Count 194 (160-400) X10*3/uL MPV 9.3 L (9.4-12.4) fL Immature Gran % (Auto) 0.4 (0.0-0.4) % Neut % (Auto) 75.1 H (45-73) % Lymph % (Auto) 16.9 L (20-40) % [place] % (Auto) 6.5 (2-11) % Eos % (Auto) 0.7 (0-4) % Baso % (Auto) 0.4 (0-2) % Lymph # (Auto) 1.0 L (1.2-4.9) X10*3/uL [place] # (Auto) 0.4 (0.1-1.2) X10*3/uL Eos # (Auto) 0.0 (0.0-0.4) X10*3/uL Baso # (Auto) 0.0 (0.0-0.2) X10*3/uL Abs Immat Gran (auto) 0.02 (0.00-0.03) X10*3/uL Absolute Neuts (auto) 4.3 (2.0-8.3) x10*3/uL Absolute Nucleated RBC 0.000 (0.0-0.012) X10*3/uL Nucleated RBC % (auto) 0.0 (0.0-0.2) /100WBC PT (10.9-12.4) SEC Whole Blood PT 12.5 (11.1-13.5) sec INR (0.9-1.1) Whole Blood INR 1.0 (0.9-1.1) APTT (26.0-36.8) SEC Sodium 143 (135-145) mmol/L Potassium 4.4 (3.3-5.1) mmol/L Chloride 109 H (96-108) mmol/L Carbon Dioxide 25 (22-29) mmol/L Anion Gap 13 (12-20) BUN 15 (9-16) mg/dL Creatinine 1.08 (0.5-1.4) mg/dL Estim Creat Clear Calc 48.5 Estimated GFR > 60 POC Glucose 130 H (60-115) mg/dL Random Glucose 137 H (60-115) mg/dL Calcium 9.7 (8.4-10.2) mg/dL Total Bilirubin 0.6 (0.0-1.0) mg/dL Direct Bilirubin 0.2 (0.0-0.5) mg/dL AST 32 (5-37) U/L ALT 17 (0-40) U/L Alkaline Phosphatase 90 (39-117) U/L Troponin I High Sens 82.8 H (<3.5-35.0) ng/L Total Protein 7.4 (6.5-8.0) g/dL Albumin 4.2 (3.5-5.0) g/dL Triglycerides 76 (<150) mg/dL Cholesterol 170 (<200) mg/dL LDL Cholesterol, Calc 106 H (<100) mg/dL HDL Cholesterol 49 (>40) mg/dL Ethyl Alcohol < 10 mg/dL 05/13/24 Range/Units 10:56 WBC (4.8-10.8) X10*3/uL RBC (4.60-5.80) X10*6/uL Hgb (14.0-18.0) g/dl Hct (42.0-52.0) % MCV (80.0-98.0) fL MCH (27.0-33.0) pg MCHC (31.0-36.0) g/dl RDW (11.0-16.0) % Plt Count (160-400) X10*3/uL MPV (9.4-12.4) fL Immature Gran % (Auto) (0.0-0.4) % Neut % (Auto) (45-73) % Lymph % (Auto) (20-40) % [place] % (Auto) (2-11) % Eos % (Auto) (0-4) % Baso % (Auto) (0-2) % Lymph # (Auto) (1.2-4.9) X10*3/uL [place] # (Auto) (0.1-1.2) X10*3/uL Eos # (Auto) (0.0-0.4) X10*3/uL Baso # (Auto) (0.0-0.2) X10*3/uL Abs Immat Gran (auto) (0.00-0.03) X10*3/uL Absolute Neuts (auto) (2.0-8.3) x10*3/uL Absolute Nucleated RBC (0.0-0.012) X10*3/uL Nucleated RBC % (auto) (0.0-0.2) /100WBC PT 11.3 (10.9-12.4) SEC Whole Blood PT (11.1-13.5) sec INR 1.0 (0.9-1.1) Whole Blood INR (0.9-1.1) APTT 26.3 (26.0-36.8) SEC Sodium (135-145) mmol/L Potassium (3.3-5.1) mmol/L Chloride (96-108) mmol/L Carbon Dioxide (22-29) mmol/L Anion Gap (12-20) BUN (9-16) mg/dL Creatinine (0.5-1.4) mg/dL Estim Creat Clear Calc Estimated GFR POC Glucose (60-115) mg/dL Random Glucose (60-115) mg/dL Calcium (8.4-10.2) mg/dL Total Bilirubin (0.0-1.0) mg/dL Direct Bilirubin (0.0-0.5) mg/dL AST (5-37) U/L ALT (0-40) U/L Alkaline Phosphatase (39-117) U/L Troponin I High Sens (<3.5-35.0) ng/L Total Protein (6.5-8.0) g/dL Albumin (3.5-5.0) g/dL Triglycerides (<150) mg/dL Cholesterol (<200) mg/dL LDL Cholesterol, Calc (<100) mg/dL HDL Cholesterol (>40) mg/dL Ethyl Alcohol mg/dL Independent Interpretation I performed an independent interpretation of an: EKG Interpretation: My independent interpretation patient's 12 EKG done at 10:32 hours is as follows: Normal sinus rhythm rate of 84, normal [place] interval, QRS duration QTC interval, Q-waves in 3 and AVF. Q-wave in V1 with poor R-wave progression V to and V3. No ST segment elevation, no ST segment depression, no PACs, no PVCs, no significant T-wave abnormalities noted. Compared to EKG dated 01/10/2017 there were no significant changes. Radiology Impression Discussion of test interpretation with radiology: I discussed test interpretation with the radiologist and I have reviewed the radiologist's reading. Radiologist Impression: CT angio head neck STROKE IMPRESSION: No main cerebral artery occlusion or embolus or aneurysm. No dissection, vessels of the neck. 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 Discussed with the medical team in the emergency department at 10:26 AM. This critical test result is communicated to: Electronically signed by: Rajan Durnat MD 05/13/2024 10:[address] angio head neck STROKE IMPRESSION: No main cerebral artery occlusion or embolus or aneurysm. No dissection, vessels of the neck. 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 Discussed with the medical team in the emergency department at 10:26 AM. This critical test result is communicated to: Electronically signed by: aRjan Durant MD 05/13/2024 10:39 AM Independent Historian Clinical information obtained from an independent historian. History obtained from or confirmed by: Spouse External Record Review External record reviewed: Office record Chronic Conditions Patient?s care impacted by: Hypertension and Other (Hyperlipidemia) NIH Stroke Scale Internal: Initial- Upon Arrival Level of Consciousness: Alert Level of Consciousness Questions: Answers both questions correctly Level of Consciousness Commands: Performs both tasks correctly Best Gaze: Normal Visual: No visual loss Facial Palsy: Normal Motor Arm (Right): No drift Motor Arm (Left): No drift Motor Leg (Right): No drift Motor Leg (Left): No drift Limb Ataxia: Absent Sensory: Normal Best Language: Mild to moderate aphasia Dysarthia: Normal Extinction and Inattention: No abnormality Score: 1 Critical Care Time Critical Care Time Critical Care Time: Yes Total Critical Care Time: 75 Attestation: Critical Care: The patient was critically ill with a high probability of imminent or life threatening deterioration. I spent greater than 30 minutes of discontinuous time evaluating the patient,delivering critical care at the bedside, discussing and evaluating pertinent data with consultants. Critical care time does not include time spent performing separately billable procedures or teaching. Total time spent performing critical care was 75 minutes. Discharge Plan Discharge Clinical Impression: Expressive aphasia, Acute non-ST elevation myocardial infarction (NSTEMI) Patient Disposition: Home, Self-Care Interventions: Admission Worksheet (ED) Last Done: 05/13/24 15:58 Discharge Date/Time: 05/13/24 17:14
--- NOTE | 2024-05-13 09:56 | ECG_ITS ---
Test Reason : stroke protocol Blood Pressure : / mmHG Vent. Rate : 084 BPM Atrial Rate : 084 BPM P-R Int : 190 ms QRS Dur : 078 ms QT Int : 398 ms P-R-T Axes : - 083 degrees QTc Int : 470 ms Sinus rhythm with Premature supraventricular complexes Left axis deviation Inferior infarct (cited on or before 10-JAN-2017) Anterior infarct , age undetermined Abnormal ECG When compared with ECG of 10-JAN-2017 04:14, QRS axis Shifted left Anterior infarct is now Present Nonspecific T wave abnormality now evident in Lateral leads Referred By: Ed Garsia Electronically Signed By:NATALIIA HOFF
[2024-05-13 10:03] LABS: MANUAL DIFF FLAG NO
[2024-05-13 10:06] VITALS: BP 168/77; PULSE 94; O2SAT 96; BMI 30.6
[2024-05-13 10:06] LABS: Basophils Percent Auto 0.4 % (0-2); Eosinophils Percent Auto 0.7 % (0-4); Hematocrit 40.6 % (42.0-52.0); Hemoglobin 13.7 g/dl (14.0-18.0); Imm Gran Abs Auto 0.02 X10*3/uL (0.00-0.03); Imm Gran Pct Auto 0.4 % (0.0-0.4); Lymphocytes Percent Auto 16.9 % (20-40); Mean Corpuscular HGB Conc 33.7 g/dl (31.0-36.0); Mean Corpuscular Hemoglobin 32.1 pg (27.0-33.0); Mean Corpuscular Volume 95.1 fL (80.0-98.0); Mean Platelet Volume 9.3 fL (9.4-12.4); Monocytes Absolute Auto 0.4 X10*3/uL (0.1-1.2); Monocytes Percent Auto 6.5 % (2-11); Neutrophils Absolute Auto 4.3 x10*3/uL (2.0-8.3); Neutrophils Percent Auto 75.1 % (45-73); Platelet Count 194 X10*3/uL (160-400); Red Blood Count 4.27 X10*6/uL (4.60-5.80); Red Cell Distribution Width 13.5 % (11.0-16.0); White Blood Count 5.7 X10*3/uL (4.8-10.8)
[2024-05-13 10:08] LABS: Prothrombin Time Whole Bld POC 12.5 sec (11.1-13.5)
[2024-05-13 10:09] LABS: Glucose, Whole Blood 130 mg/dL (60-115)
[2024-05-13] MEDS: iohexoL 350 MG/ML 100 ML INFUS..BTL IV (10:11)
[2024-05-13 10:27] VITALS: BP 185/93; PULSE 88; RESP 20; TEMP 36.5; O2SAT 97
[2024-05-13 10:29] LABS: Alanine Aminotransferase 17 U/L (0-40); Albumin Level 4.2 g/dL (3.5-5.0); Alkaline Phosphatase 90 U/L (39-117); Anion Gap 13 (12-20); Aspartate Amino Transferase 32 U/L (5-37); Bilirubin Direct 0.2 mg/dL (0.0-0.5); Bilirubin Total 0.6 mg/dL (0.0-1.0); Blood Urea Nitrogen 15 mg/dL (9-16); Calcium 9.7 mg/dL (8.4-10.2); Carbon Dioxide 25 mmol/L (22-29); Chloride 109 mmol/L (96-108); Cholesterol 170 mg/dL (<200); Creatinine Clr Calc Pharmacy 48.5; Estimated Glomerular Filt Rate > 60; Ethanol < 10 mg/dL; Glucose Random 137 mg/dL (60-115); HDL Cholesterol 49 mg/dL (>40); LDL Cholesterol Calculated 106 mg/dL (<100); Potassium 4.4 mmol/L (3.3-5.1); Sodium 143 mmol/L (135-145); Total Protein 7.4 g/dL (6.5-8.0); Triglycerides 76 mg/dL (<150)
[2024-05-13 10:36] LABS: Troponin-I High Sensitivity 82.8 ng/L (<3.5-35.0)
--- NOTE | 2024-05-13 11:13 | MHC.STROKE ---
Called to ED for Stroke Protocol. Met with patient and in Room 4. Pt awake, alert and oriented. According to , patient went to bed at approx 2330. Pt felt well yesterday. This am, pt woke between 6-630 and patient noticed difficulty speaking/finding words. initially was going to bring patient to the doctor however speech continued to sound garbled and had difficulty with words so she called the ambulance. LKWT 2330 last night. NIH score in ED 1. Dr. Garsia spoke with Dr. Reyes. No TNK at this time. Stroke Education provided to patient and [facility]. Education Pamphlet given. All questions answered. Will continue to assist as needed.
[2024-05-13 11:15] LABS: Prothrombin Time 11.3 SEC (10.9-12.4)
[2024-05-13 11:18] LABS: Partial Thromboplastin Time 26.3 SEC (26.0-36.8)
[2024-05-13 11:19] LABS: Stroke Lab Use COMPLETE
--- NOTE | 2024-05-13 12:12 | PC.NURSE ---
Patient arrived via ems as a stroke alert. Last known well last night around 11:30pm. Patients reports he was not speaking normally when he woke up this am. Patient alert and oriented but with word finding difficulties. Denies pain or discomfort or vision changes. Speech garbled at times. Passed swallow eval. at bedside aware of plan for admission
--- NOTE | 2024-05-13 12:45 | P.HPHOSP_ITS ---
History of Present Illness Date of Service: 05/13/24 Chief Complaint: Expressive Aphasia An 88-year-old male with a history of dyslipidemia, osteopenia, hypertension, and prostate cancer presented to the ED after waking up with expressive dysphasia. His last known well time was 11:30 PM. His noticed word-finding difficulties and frustration with speaking around 4:30 AM this morning. His NIH stroke scale score is 1. A CT head and CTA of the head and neck showed no acute findings. Neurology determined he is not a good candidate for TNK and recommended conservative management. Troponin I is 88. ECG shows no acute ischemic changes. He has no chest pain, shortness of breath, or other neurological changes. Review of Systems 2 Review of Systems: Gen: no fever Resp: no sob, no cough CV: no chest, no HOOD, no leg edema GI: No n/v, no abd pain Neuro: obvious expressive aphasia, no other neuro deficit Yes all other systems are reviewed and are negative [facility] Medical History Lumbar back pain Family History Father Smoker Mother No problems noted. Brother No problems noted. Daughter No problems noted. Daughter No problems noted. Maternal Grandfather No problems noted. Maternal Grandmother No problems noted. Paternal Grandfather No problems noted. Paternal Grandmother No problems noted. Sister No problems noted. Sister No problems noted. Surgical History No pertinent past surgical history Social History Housing: House Alcohol intake: current Alcohol intake frequency: 0-2 drinks per day Alcohol type: wine Patient Tobacco Use Status: Never used Tobacco Smoked in Last 30 Days: No e-Cigarette/Vaping Use: Never Used Use of substances other than those prescribed or required for medical reasons: No Advance Directives: No Advance Directives Information Provided: Yes Do you have a plan to hurt others: No Plan Current occupational status: retired Cognitive needs: No Hearing needs: No Vision needs: Yes Meds Allergies Allergy/AdvReac Type Severity Reaction Status Date / Time No Known Allergies Allergy Verified 05/13/24 10:11 [No Known Allergies*] Home Medications ?Medication ?Instructions ?Recorded ?Confirmed ?Last Taken ?Type aspirin 81 mg tablet,delayed 81 mg PO DAILY 03/30/20 08/29/23 Unknown History release (Adult Aspirin Regimen) celecoxib 200 mg capsule 200 mg PO DAILY 03/30/20 08/29/23 Unknown History gabapentin 300 mg capsule 300 mg PO DAILY 05/07/20 08/29/23 Unknown History Physical Exam 2 Vital Signs and Narrative: Vital Signs: Last Vital Signs Temp 97.7 F 05/13/24 10:27 Pulse 88 05/13/24 10:27 Resp 20 05/13/24 10:27 BP 185/93 H 05/13/24 10:27 Pulse Ox 97 05/13/24 10:27 O2 Del Method Room Air 05/13/24 10:27 BMI result Body Mass Index 30.6 Results Labs 05/13/24 09:57 05/13/24 09:57 Labs: Laboratory Results - last 24 hr 05/13/24 05/13/24 05/13/24 09:57 10:02 10:03 MCV 95.1 MCH 32.1 MCHC 33.7 RDW 13.5 Plt Count 194 MPV 9.3 L Immature Gran % (Auto) 0.4 Neut % (Auto) 75.1 H Lymph % (Auto) 16.9 L [place] % (Auto) 6.5 Eos % (Auto) 0.7 Baso % (Auto) 0.4 Lymph # (Auto) 1.0 L [place] # (Auto) 0.4 Eos # (Auto) 0.0 Baso # (Auto) 0.0 Abs Immat Gran (auto) 0.02 Absolute Neuts (auto) 4.3 Absolute Nucleated RBC 0.000 Nucleated RBC % (auto) 0.0 PT Whole Blood PT 12.5 INR Whole Blood INR 1.0 APTT Anion Gap 13 Estim Creat Clear Calc 48.5 Estimated GFR > 60 POC Glucose 130 H Random Glucose 137 H Calcium 9.7 Total Bilirubin 0.6 Direct Bilirubin 0.2 AST 32 ALT 17 Alkaline Phosphatase 90 Troponin I High Sens 82.8 H Total Protein 7.4 Albumin 4.2 Triglycerides 76 Cholesterol 170 LDL Cholesterol, Calc 106 H HDL Cholesterol 49 Ethyl Alcohol < 10 05/13/24 10:56 MCV MCH MCHC RDW Plt Count MPV Immature Gran % (Auto) Neut % (Auto) Lymph % (Auto) [place] % (Auto) Eos % (Auto) Baso % (Auto) Lymph # (Auto) [place] # (Auto) Eos # (Auto) Baso # (Auto) Abs Immat Gran (auto) Absolute Neuts (auto) Absolute Nucleated RBC Nucleated RBC % (auto) PT 11.3 Whole Blood PT INR 1.0 Whole Blood INR APTT 26.3 Anion Gap Estim Creat Clear Calc Estimated GFR POC Glucose Random Glucose Calcium Total Bilirubin Direct Bilirubin AST ALT Alkaline Phosphatase Troponin I High Sens Total Protein Albumin Triglycerides Cholesterol LDL Cholesterol, Calc HDL Cholesterol Ethyl Alcohol Imaging Radiologist's Impressions: Impressions Head CT 05/13/24 09:56 IMPRESSION: No acute intracranial process seen. This critical result was discussed with Dr. Ravinder Garsia at 10:05 A.M. on 05/13/2024. It was ascertained that the content and urgency of the report was understood at the time of direct communication. Electronically signed by: Gregorio Shell MD 05/13/2024 10:11 AM [place] RP Head/Neck CTA 05/13/24 10:02 IMPRESSION: No main cerebral artery occlusion or embolus or aneurysm. No dissection, vessels of the neck. 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 Discussed with the medical team in the emergency department at 10:26 AM. This critical test result is communicated to: Electronically signed by: Rajan Durant MD 05/13/2024 10:39 AM EST RP Assessment and Plan (1) Expressive aphasia: Status: Acute (2) HTN (hypertension): Status: Acute (3) Dyslipidemia: Status: Acute Plan 88/M with HTN, HLD presenting with acute stroke manifested by expressive aphasia Stroke with expressive aphasia -Conservative management with BP control, high-intensity statin, ASA, speech rehab, Neuro consult HTN -Allow permissive HTN; resume home medications in 24 to 48 hours HLD -Increase Lipitor to 40 mg Neuropathy -Gabapentin DVT -eparin for DVT prophylaxis Quality Stroke Does the patient have a stroke diagnosis?: Yes Reason for No Anti-thrombotic by Day Two: N/A - Med Ordered VTE Prior VTE?: No VTE Risk Level:: Medical - moderate - high VTE Device Contraindication: Treatment Not Indicated VTE Drug Contraindication: N/A - Med Ordered
[2024-05-13] MEDS: Atorvastatin Calcium 40 MG TABLET PO (13:27)
--- NOTE | 2024-05-13 13:47 | PHA.MEDREC ---
Pharmacy Consult ? Medication Reconciliation Pharmacy has completed the medication reconciliation.Med rec complete, spoke to patient and compared with pharmacy claim history. Patient also sometimes supplements with calcium and vitamin D but does not take these regularly
[2024-05-13 14:08] LABS: Troponin-I High Sensitivity 155.3 ng/L (<3.5-35.0)
[2024-05-13] MEDS: Aspirin 81 MG TAB.CHEW 162 MG PO (14:44)
[2024-05-13] MEDS: Heparin Sodium,Porcine 5,000 UNIT/ML VIAL 4000 UNIT IVPUSH (14:57)
[2024-05-13] MEDS: Heparin Sodium,Porcine/1/2NS 25,000 UNIT/250 ML IV.SOLN 10 UNIT IVCONT (14:58)
[2024-05-13 15:21] LABS: Prothrombin Time 11.5 SEC (10.9-12.4)
[2024-05-13 15:22] LABS: Hematocrit 39.8 % (42.0-52.0); Hemoglobin 13.7 g/dl (14.0-18.0); Mean Corpuscular HGB Conc 34.4 g/dl (31.0-36.0); Mean Corpuscular Hemoglobin 32.6 pg (27.0-33.0); Mean Corpuscular Volume 94.8 fL (80.0-98.0); Mean Platelet Volume 9.5 fL (9.4-12.4); Platelet Count 199 X10*3/uL (160-400); Red Cell Distribution Width 13.5 % (11.0-16.0); White Blood Count 6.7 X10*3/uL (4.8-10.8)
[2024-05-13 15:24] LABS: PTT Heparin Drip 26.2 SEC (53-77.9)
[2024-05-13 16:15] VITALS: BP 149/72; PULSE 73; RESP 16; TEMP 36.7; O2SAT 95
[2024-05-13 19:54] VITALS: BP 146/69; PULSE 83; RESP 20; TEMP 36.7; O2SAT 96
[2024-05-13 21:30] LABS: PTT Heparin Drip 150.6 SEC (53-77.9)
[2024-05-13 22:33] LABS: PTT Heparin Drip 100.2 SEC (53-77.9)
[2024-05-13 23:42] VITALS: BP 169/79; PULSE 81; RESP 18; TEMP 36.6; O2SAT 97
[2024-05-14 00:06] LABS: PTT Heparin Drip 51.5 SEC (53-77.9)
[2024-05-14 00:07] VITALS: BP 150/80
[2024-05-14 03:35] VITALS: BP 160/80; PULSE 71; RESP 18; TEMP 36.4; O2SAT 95
--- NOTE | 2024-05-14 07:00 | CA_ITS ---
Transthoracic Echocardiogram Patient (Last, First, Middle): Steve Barriga J Gender: Male Date of : 1935 Age: 88 Procedure Date: 05/14/2024 Procedure Type: Transthoracic Echocardiogram Location: [facility] [place] Height: 167.64 cm Weight: 85.73 kg BSA: 1.95 m2 Heart Rate: 77 bpm BP: 160 / 88 mmHg Glass Blowing Instructor: Referring MD: London Dawson MD Symptoms: NSTEMI Study Quality: Fair ECG Rhythm: Sinus Conclusions: - The left ventricular systolic function is normal. The calculated ejection fraction is 62% by biplane method. - There is severely increased left ventricular wall thickness. - There is moderate mitral annular calcification. Findings Left Ventricle Normal left ventricular cavity size. There is severely increased left ventricular wall thickness. The left ventricular systolic function is normal. The calculated ejection fraction is 62% by biplane method. There is no evidence of regional wall motion abnormalities. Evidence suggests grade II (moderate) diastolic dysfunction. Right Ventricle Normal right ventricular cavity size. There is normal right ventricular systolic function. Atria The left atrium is moderately dilated. The right atrium is normal in size. Aortic Valve There is a normal trileaflet aortic valve. There is mild calcification of the aortic valve. There is no aortic valve stenosis. There is no aortic valve regurgitation. Mitral Valve There is moderate mitral annular calcification. There is no mitral valve regurgitation. There is no mitral valve stenosis. Pulmonic Valve The pulmonic valve is likely normal. Tricuspid Valve There is trace tricuspid valve regurgitation. There is no evidence of pulmonary hypertension. Great Vessels The asc aorta is normal in size. Venous The inferior vena cava is normal in size and collapses greater than 50% with inspiration. Pericardium/Pleural There is no evidence of pericardial effusion. Prior Study Comparison No prior study available for comparison. Measurements 2D Linear Measurements IVSd: 1.68 0.6-0.9/0.6-1.0 cm LVIDd: 3.51 3.9-5.3/4.2-5.9 cm LVIDd Index: 1.80 2.4-3.2/2.2-3.1 cm/m2 LVIDs: 2.60 2.0-3.6 cm LVPWd: 1.66 0.7-1.1 cm LA Diam: 4.40 2.7-3.8/3.0-4.0 cm LAIDs Index: 2.26 1.5-2.3 cm/m2 LV Mass: 289.30 67-162/88-224 g LV Mass Index: 148.36 43-95/49-115 g/m2 LVOT Diam: 2.20 3.0+(-)1.3 cm 2D Systolic Function EF 4C: 64.00 >55% EF 2C: 59.60 >55% EF BiP: 62.00 >55% Mitral Valve MV VTI: 0.36 MV Pk Darius: 1.12 MV Mn Darius: 0.66 MV Pk Grad: 5.00 MV Mn Grad: 2.00 MV Pk E: 1.10 MV PK A: 0.95 MV Decel Time: 173.00 E/A: 1.20 E'Lateral: 7.72 E'Medial: 5.33 E/E' Med: 20.60 E/E' Lat: 14.20 PHT: 51.00 MVA PHT: 4.31 MVA Continuity: 2.13 Decel [place]: 6.37 Aortic Valve AoV Pk Darius: 1.48 AoV Mn Darius: 1.07 AoV VTI: 0.30 AoV Pk Grad: 9.00 Aov Mn Grad: 5.00 NANNETTE Cont.VTI: 2.55 LVOT LVOT Pk Darius: 0.89 LVOT Mn Darius: 0.66 LVOT VTI: 0.20 LVOT Pk Grad: 3.00 LVOT Mn Grad: 2.00 LVOT Diam: 2.20 LVOT Area: 3.80 Diastolic Function MV Pk E: 1.10 MV Pk A: 0.95 E/A: 1.20 E'Medial: 5.33 E/E' Med: 20.60 E' Laterial: 7.72 E/E' Lat: 14.20 Right Ventricle TAPSE (mm): 21.40 Tricuspid Valve TR Pk Darius: 2.95 TR Pk Grad: 35.00 Great Vessels Aorta Sinus of Valsalva: 3.60 2.0-3.5 cm Ao Asc: 3.70 2.1-3.4 cm Pulmonary Valve PV Pk Darius: 0.90 Peak PV Grad: 3.00 Updated in Other Vendor System with Status of Final London Dawson MD electronically signed on 05/14/2024 4:58:11 PM with status of Final
[2024-05-14 07:07] VITALS: BP 160/88; PULSE 71; RESP 18; TEMP 36.3; O2SAT 96
[2024-05-14 07:31] LABS: MANUAL DIFF FLAG NO
[2024-05-14 07:34] LABS: Basophils Percent Auto 0.5 % (0-2); Eosinophils Absolute Auto 0.1 X10*3/uL (0.0-0.4); Eosinophils Percent Auto 1.6 % (0-4); Hematocrit 36.8 % (42.0-52.0); Hemoglobin 12.9 g/dl (14.0-18.0); Imm Gran Abs Auto 0.02 X10*3/uL (0.00-0.03); Imm Gran Pct Auto 0.4 % (0.0-0.4); Lymphocytes Absolute Auto 1.7 X10*3/uL (1.2-4.9); Lymphocytes Percent Auto 30.3 % (20-40); Mean Corpuscular HGB Conc 35.1 g/dl (31.0-36.0); Mean Corpuscular Hemoglobin 32.7 pg (27.0-33.0); Mean Corpuscular Volume 93.2 fL (80.0-98.0); Mean Platelet Volume 9.2 fL (9.4-12.4); Monocytes Absolute Auto 0.6 X10*3/uL (0.1-1.2); Monocytes Percent Auto 9.7 % (2-11); Neutrophils Absolute Auto 3.3 x10*3/uL (2.0-8.3); Neutrophils Percent Auto 57.5 % (45-73); Platelet Count 175 X10*3/uL (160-400); Red Blood Count 3.95 X10*6/uL (4.60-5.80); Red Cell Distribution Width 13.3 % (11.0-16.0); White Blood Count 5.7 X10*3/uL (4.8-10.8)
[2024-05-14 07:48] LABS: Anion Gap 11 (12-20); Blood Urea Nitrogen 12 mg/dL (9-16); Calcium 8.8 mg/dL (8.4-10.2); Carbon Dioxide 22 mmol/L (22-29); Chloride 110 mmol/L (96-108); Creatinine Clr Calc Pharmacy 63.9; Estimated Glomerular Filt Rate > 60; Glucose Random 104 mg/dL (60-115); Potassium 3.9 mmol/L (3.3-5.1); Sodium 139 mmol/L (135-145)
--- NOTE | 2024-05-14 08:59 | MHC.CM.PN ---
IMM 05/14/24, Pt lives with his , he does not have home health services, for DME, he uses a cane and a walker. He is a , and does not use the [facility]. HCP will be completed here and added to chart. PCP is confirmed: Candido Fowler. DCP: TBD, either home with services or rehab. CM to follow for DC needs.
--- NOTE | 2024-05-14 10:22 | P.CONCA_ITS ---
History of Present Illness History of Present Illness Date of Service: 05/14/24 Chief complaint: stroke Narrative: This is a cardiology consultation regarding elevated troponins. Patient has been admitted for complaints of word-finding difficulties and frustration with speaking. Admitted with a diagnosis of stroke. In this context, troponins were checked and they were found to be elevated. Patient himself denies any history of coronary disease or cardiomyopathy or in fact any other cardiac issues. He also denies any anginal-type symptoms or in fact anything cardiac related at all. States he feels fine. Review of Systems 2 Review of Systems: Yes all other systems are reviewed and are negative Constitutional: Constitutional: Reports as per HPI and Reports no additional constitutional complaints Eyes: Eyes: Reports as per HPI and Denies no additional eye complaints ENT: Denies system reviewed and no additional complaints, except as documented and Reports as per HPI Cardiovascular: Cardiovascular: Reports as per HPI, Reports no additional cardiovascular complaints, Denies acrocyanosis, Denies cool extremities, Denies chest pain, Denies leg edema, Denies lightheadedness, Denies palpitations and Denies dyspnea Respiratory: Respiratory: Reports as per HPI, Denies no additional respiratory complaints and Denies dyspnea Gastrointestinal: Gastrointestinal: Reports as per HPI and Denies no additional gastrointestinal complaints Genitourinary: Genitourinary: Reports no additional male genitourinary complaints and Reports as per HPI Musculoskeletal: Musculoskeletal: Reports no additional musculoskeletal complaints and Reports as per HPI Integumentary/Breasts: Skin/Breast: Reports system reviewed and no additional complaints, except as docu Neurologic: Reports system reviewed and no additional complaints, except as documented and Reports as per HPI Psychiatric: Psychiatric: Reports no additional psychiatric complaints and Reports as per HPI Endocrine: Endocrine: Reports no additional endocrine complaints, Reports as per HPI and Denies palpitations Hematologic/Lymphatic: Hematologic/Lymphatic: Reports no additional hematologic/lymphatic complaints and Reports as per HPI Allergic/Immunologic: Allergic/Immunologic: Reports no additional allergic/immunologic complaints and Reports as per HPI [facility] Past Medical History Medical History Lumbar back pain Family History Family History Father Smoker Mother No problems noted. Brother No problems noted. Daughter No problems noted. Daughter No problems noted. Maternal Grandfather No problems noted. Maternal Grandmother No problems noted. Paternal Grandfather No problems noted. Paternal Grandmother No problems noted. Sister No problems noted. Sister No problems noted. Surgical History Surgical History No pertinent past surgical history Social History Social History Household Members: Significant Other Housing: House Do you presently have visiting nurse or other home services: No Alcohol intake: current Alcohol intake frequency: 0-2 drinks per day Alcohol type: wine Patient Tobacco Use Status: Never used Tobacco Smoked in Last 30 Days: No e-Cigarette/Vaping Use: Never Used Use of substances other than those prescribed or required for medical reasons: No Currently Displaying Signs/Symptoms of Drug Intoxication Withdrawal: No Have you been hit, kicked, punched, or otherwise hurt by someone within the past year? If so, by whom?: No Do you feel safe in your current relationship?: Yes Is there a partner from a previous relationship who is making you feel unsafe now?: No Are you made to feel afraid or neglected: No Advance Directives: No Advance Directives Information Provided: Yes Do you have a plan to hurt others: No Plan Recently lost weight without trying: No Nutrition Risks: No Nutritional Risk Poor oral hygiene: No service: Yes Current occupational status: retired Cognitive needs: No Hearing needs: No Vision needs: Yes Meds Allergies Allergy/AdvReac Type Severity Reaction Status Date / Time No Known Allergies Allergy Verified 05/13/24 10:11 [No Known Allergies*] Active Medications: Current Medications Acetaminophen (Acetaminophen 325 Mg Tablet) 650 mg PO Q6H PRN PRN Reason: Pain, Mild 1-3,fever,headache Aspirin (Aspirin Enteric Coated 81 Mg Tablet.) 81 mg PO DAILY JACK Atorvastatin Calcium (Atorvastatin Calcium 40 Mg Tablet) 40 mg PO DAILY JACK Last Admin: 05/13/24 13:27 Dose: 40 mg Calcium Carbonate (Calcium Carbonate 750 Mg Tab.Chew) 750 mg PO Q4H PRN PRN Reason: Heartburn Heparin Sodium (Porcine) (Heparin Sodium,Porcine 5,000 Unit/Ml Vial) 3,400 unit 40 unit/kg (3400 unit) IVPUSH PROTOCOL BOLUS PRN; Protocol PRN Reason: 40 unit/kg - Heparin Protocol Heparin Sodium (Porcine) (Heparin Sodium,Porcine 5,000 Unit/Ml Vial) 6,900 unit 80 unit/kg (6900 unit) IVPUSH PROTOCOL BOLUS PRN; Protocol PRN Reason: 80 unit/kg - Heparin Protocol Heparin Sodium/Sodium Chloride (Heparin Sodium,Porcine/1/2ns) 25,000 unit in 250 mls @ 0 mls/hr IVCONT .Q0M JACK; Protocol Last Titration: 05/14/24 08:12 Dose: 7.64 units/kg/hr, 6.56 mls/hr Magnesium Hydroxide (Milk Of Magnesia 30 Ml Oral.Susp) 30 ml PO DAILY PRN PRN Reason: Constipation Melatonin (Melatonin 3 Mg Tablet) 6 mg PO BEDTIME PRN PRN Reason: Insomnia Home Medications ?Medication ?Instructions ?Recorded ?Confirmed ?Last Taken ?Type aspirin 81 mg tablet,delayed 81 mg PO DAILY 03/30/20 05/13/24 Unknown History release (Adult Aspirin Regimen) atorvastatin 10 mg tablet 10 mg PO BEDTIME 05/13/24 05/13/24 Unknown History lisinopril 20 mg tablet 20 mg PO BEDTIME 05/13/24 05/13/24 Unknown History Physical Exam 2 Vital Signs: Vital Signs: Last Vital Signs Temp 97.4 F 05/14/24 07:07 Pulse 71 05/14/24 07:07 Resp 18 05/14/24 07:07 BP 160/88 H 05/14/24 07:07 Pulse Ox 96 05/14/24 07:07 O2 Del Method Room Air 05/14/24 07:07 BMI result Body Mass Index 30.6 Const: General: comfortable and no acute distress O rientation/consciousness: patient oriented x3 HEENT: Other: Unremarkable Head: Yes normal to inspection Neck: Neck: Yes normal visual inspection Chest: Chest palpation & inspection: normal inspection of the chest Resp: Auscultation: clear to auscultation bilaterally Cardio: Palpation: normal PMI Heart sounds: S1 normal heart sound present, S2 normal heart sound present, no gallops, no murmurs and no rubs GI: Palpation (GI): Soft to palpation Back/Spine/Pelvis: Other: unremarkable Skin: General skin exam: no rashes or lesions noted Neuro: General: patient oriented x3 Extrem: General: Yes normal to inspection Psych: Mental Status: mental status grossly normal Objective Labs and Meds 05/14/24 07:26 05/14/24 07:26 Lab results: Laboratory Results - last 24 hr 05/13/24 05/13/24 05/13/24 09:57 10:56 13:31 WBC RBC Hgb Hct MCV MCH MCHC RDW Plt Count MPV Immature Gran % (Auto) Neut % (Auto) Lymph % (Auto) [place] % (Auto) Eos % (Auto) Baso % (Auto) Lymph # (Auto) [place] # (Auto) Eos # (Auto) Baso # (Auto) Abs Immat Gran (auto) Absolute Neuts (auto) Absolute Nucleated RBC Nucleated RBC % (auto) PT 11.3 INR 1.0 APTT 26.3 aPTT Heparin Protocol Sodium 143 Potassium 4.4 Chloride 109 H Carbon Dioxide 25 Anion Gap 13 BUN 15 Creatinine 1.08 Estim Creat Clear Calc 48.5 Estimated GFR > 60 Random Glucose 137 H Calcium 9.7 Total Bilirubin 0.6 Direct Bilirubin 0.2 AST 32 ALT 17 Alkaline Phosphatase 90 Troponin I High Sens 82.8 H 155.3 H* D Total Protein 7.4 Albumin 4.2 Triglycerides 76 Cholesterol 170 LDL Cholesterol, Calc 106 H HDL Cholesterol 49 Ethyl Alcohol < 10 05/13/24 05/13/24 05/13/24 14:55 20:57 22:16 WBC 6.7 RBC 4.20 L Hgb 13.7 L Hct 39.8 L MCV 94.8 MCH 32.6 MCHC 34.4 RDW 13.5 Plt Count 199 MPV 9.5 Immature Gran % (Auto) Neut % (Auto) Lymph % (Auto) [place] % (Auto) Eos % (Auto) Baso % (Auto) Lymph # (Auto) [place] # (Auto) Eos # (Auto) Baso # (Auto) Abs Immat Gran (auto) Absolute Neuts (auto) Absolute Nucleated RBC 0.000 Nucleated RBC % (auto) 0.0 PT 11.5 INR 1.0 APTT aPTT Heparin Protocol 26.2 L 150.6 H* D 100.2 H D Sodium Potassium Chloride Carbon Dioxide Anion Gap BUN Creatinine Estim Creat Clear Calc Estimated GFR Random Glucose Calcium Total Bilirubin Direct Bilirubin AST ALT Alkaline Phosphatase Troponin I High Sens Total Protein Albumin Triglycerides Cholesterol LDL Cholesterol, Calc HDL Cholesterol Ethyl Alcohol 05/13/24 05/14/24 05/14/24 23:51 07:26 07:26 WBC Cancelled 5.7 RBC Cancelled Hgb Hct MCV MCH MCHC RDW Plt Count MPV Immature Gran % (Auto) Neut % (Auto) Lymph % (Auto) [place] % (Auto) Eos % (Auto) Baso % (Auto) Lymph # (Auto) [place] # (Auto) Eos # (Auto) Baso # (Auto) Abs Immat Gran (auto) Absolute Neuts (auto) Absolute Nucleated RBC Nucleated RBC % (auto) PT INR APTT aPTT Heparin Protocol 51.5 L D Sodium Potassium Chloride Carbon Dioxide Anion Gap BUN Creatinine Estim Creat Clear Calc Estimated GFR Random Glucose Calcium Total Bilirubin Direct Bilirubin AST ALT Alkaline Phosphatase Troponin I High Sens Total Protein Albumin Triglycerides Cholesterol LDL Cholesterol, Calc HDL Cholesterol Ethyl Alcohol 05/14/24 05/14/24 05/14/24 07:26 07:26 07:26 WBC RBC 3.95 L Hgb Cancelled 12.9 L Hct Cancelled 36.8 L MCV Cancelled MCH MCHC RDW Plt Count MPV Immature Gran % (Auto) Neut % (Auto) Lymph % (Auto) [place] % (Auto) Eos % (Auto) Baso % (Auto) Lymph # (Auto) [place] # (Auto) Eos # (Auto) Baso # (Auto) Abs Immat Gran (auto) Absolute Neuts (auto) Absolute Nucleated RBC Nucleated RBC % (auto) PT INR APTT aPTT Heparin Protocol Sodium Potassium Chloride Carbon Dioxide Anion Gap BUN Creatinine Estim Creat Clear Calc Estimated GFR Random Glucose Calcium Total Bilirubin Direct Bilirubin AST ALT Alkaline Phosphatase Troponin I High Sens Total Protein Albumin Triglycerides Cholesterol LDL Cholesterol, Calc HDL Cholesterol Ethyl Alcohol 05/14/24 05/14/24 05/14/24 07:26 07:26 07:26 WBC RBC Hgb Hct MCV 93.2 MCH Cancelled 32.7 MCHC Cancelled 35.1 RDW Cancelled Plt Count MPV Immature Gran % (Auto) Neut % (Auto) Lymph % (Auto) [place] % (Auto) Eos % (Auto) Baso % (Auto) Lymph # (Auto) [place] # (Auto) Eos # (Auto) Baso # (Auto) Abs Immat Gran (auto) Absolute Neuts (auto) Absolute Nucleated RBC Nucleated RBC % (auto) PT INR APTT aPTT Heparin Protocol Sodium Potassium Chloride Carbon Dioxide Anion Gap BUN Creatinine Estim Creat Clear Calc Estimated GFR Random Glucose Calcium Total Bilirubin Direct Bilirubin AST ALT Alkaline Phosphatase Troponin I High Sens Total Protein Albumin Triglycerides Cholesterol LDL Cholesterol, Calc HDL Cholesterol Ethyl Alcohol 05/14/24 05/14/24 05/14/24 07:26 07:26 07:26 WBC RBC Hgb Hct MCV MCH MCHC RDW 13.3 Plt Count Cancelled 175 MPV Cancelled 9.2 L Immature Gran % (Auto) 0.4 Neut % (Auto) 57.5 Lymph % (Auto) 30.3 [place] % (Auto) 9.7 Eos % (Auto) 1.6 Baso % (Auto) 0.5 Lymph # (Auto) 1.7 [place] # (Auto) 0.6 Eos # (Auto) 0.1 Baso # (Auto) 0.0 Abs Immat Gran (auto) 0.02 Absolute Neuts (auto) 3.3 Absolute Nucleated RBC Cancelled Nucleated RBC % (auto) PT INR APTT aPTT Heparin Protocol Sodium Potassium Chloride Carbon Dioxide Anion Gap BUN Creatinine Estim Creat Clear Calc Estimated GFR Random Glucose Calcium Total Bilirubin Direct Bilirubin AST ALT Alkaline Phosphatase Troponin I High Sens Total Protein Albumin Triglycerides Cholesterol LDL Cholesterol, Calc HDL Cholesterol Ethyl Alcohol 05/14/24 05/14/24 07:26 07:26 WBC RBC Hgb Hct MCV MCH MCHC RDW Plt Count MPV Immature Gran % (Auto) Neut % (Auto) Lymph % (Auto) [place] % (Auto) Eos % (Auto) Baso % (Auto) Lymph # (Auto) [place] # (Auto) Eos # (Auto) Baso # (Auto) Abs Immat Gran (auto) Absolute Neuts (auto) Absolute Nucleated RBC 0.000 Nucleated RBC % (auto) Cancelled 0.0 PT 12.0 INR 1.0 APTT aPTT Heparin Protocol 59.0 Sodium 139 Potassium 3.9 Chloride 110 H Carbon Dioxide 22 Anion Gap 11 L BUN 12 Creatinine 0.82 Estim Creat Clear Calc 63.9 Estimated GFR > 60 Random Glucose 104 Calcium 8.8 D Total Bilirubin Direct Bilirubin AST ALT Alkaline Phosphatase Troponin I High Sens Total Protein Albumin Triglycerides Cholesterol LDL Cholesterol, Calc HDL Cholesterol Ethyl Alcohol ECG Interpretation: EKG with underlying sinus rhythm at 84/Min; can not exclude inferior/anterior infarct. Normal MD and corrected QT. Unable to compare EKGs as the software is being upgraded. Imaging Radiologist's impression: Impressions Head/Neck CTA 05/13/24 10:02 IMPRESSION: No main cerebral artery occlusion or embolus or aneurysm. No dissection, vessels of the neck. 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 Discussed with the medical team in the emergency department at 10:26 AM. This critical test result is communicated to: Electronically signed by: Rajan Durant MD 05/13/2024 10:39 AM [facility] [place] and Plan (1) Expressive aphasia: Status: Acute (2) Acute non-ST elevation myocardial infarction (NSTEMI): Status: Acute Plan Troponin levels are 83 and 155. Demand related NSTEMI in the setting of stroke. Continue IV heparin drip for 48 hours. Continue aspirin and statins. Once cleared by Neurology, blood pressure management. Echocardiogram. We will follow-up with you. Procedures Date of Service Date of Service: 05/14/24
[2024-05-14] MEDS: Atorvastatin Calcium 40 MG TABLET PO (10:37)
[2024-05-14] MEDS: Aspirin Enteric Coated 81 MG TABLET.DR PO (10:37)
[2024-05-14 11:35] VITALS: BP 158/66; PULSE 74; TEMP 36.7; O2SAT 97
[2024-05-14 12:52] LABS: Adenovirus PCR Not Detected (Not Detect.); Bordetella parapertussis PCR Not Detected (Not Detect.); Bordetella pertussis PCR Not Detected (Not Detect.); Chlamydia pneumoniae PCR Not Detected (Not Detect.); Coronavirus 229E PCR Not Detected (Not Detect.); Coronavirus HKU1 PCR Not Detected (Not Detect.); Coronavirus NL63 PCR Not Detected (Not Detect.); Coronavirus OC43 PCR Not Detected (Not Detect.); Human metapneumovirus PCR Not Detected (Not Detect.); Influenza A PCR Not Detected (Not Detect.); Influenza B PCR Not Detected (Not Detect.); Mycoplasma pneumoniae PCR Not Detected (Not Detect.); Parainfluenza 1 PCR Not Detected (Not Detect.); Parainfluenza 2 PCR Not Detected (Not Detect.); Parainfluenza 3 PCR Not Detected (Not Detect.); Parainfluenza 4 PCR Not Detected (Not Detect.); RSV PCR Not Detected (Not Detect.); Rhino/Enterovirus PCR Detected (Not Detect.)
[2024-05-14 12:58] LABS: SARS-CoV-2 PCR Not Detected (Not Detect.)
[2024-05-14 15:31] LABS: PTT Heparin Drip 58.9 SEC (53-77.9)
[2024-05-14 16:00] VITALS: BP 124/62; PULSE 80; RESP 18; TEMP 36.3; O2SAT 94
--- NOTE | 2024-05-14 17:17 | P.PNIM_ITS ---
Subjective Subjective Date of Service: 05/14/24 Interval History: expressive aphasia Review of Systems seems improving also says has cough and cold symptoms from 1 week Physical Exam 2 Vital Signs: Vital Signs: Last Vital Signs Temp 97.4 F 05/14/24 16:00 Pulse 80 05/14/24 16:00 Resp 18 05/14/24 16:00 BP 124/62 05/14/24 16:00 Pulse Ox 94 05/14/24 16:00 O2 Del Method Room Air 05/14/24 16:00 BMI result Body Mass Index 30.6 Appearance: Alert.? Oriented X3.? cvs: rrr, [id number] . res: clear to auscultation ,no rhonchii or wheezing abd: no rebound or guarding ,nt, bs present. ext pulses present , no cyanosis . neuro: axo3 , nonfocal. Objective Data Active Medications Acetaminophen (Acetaminophen 325 Mg Tablet) 650 mg PO Q6H PRN PRN Reason: Pain, Mild 1-3,fever,headache Aspirin (Aspirin Enteric Coated 81 Mg Tablet.) 81 mg PO DAILY [facility] Last Admin: 05/14/24 10:37 Dose: 81 mg Documented By: GARRET Atorvastatin Calcium (Atorvastatin Calcium 40 Mg Tablet) 40 mg PO DAILY [facility] Last Admin: 05/14/24 10:37 Dose: 40 mg Documented By: GARRET Calcium Carbonate (Calcium Carbonate 750 Mg Tab.Chew) 750 mg PO Q4H PRN PRN Reason: Heartburn Guaifenesin (Guaifenesin 200 Mg/10 Ml 10 Ml Liquid) 10 ml PO Q6H PRN PRN Reason: Cough Heparin Sodium (Porcine) (Heparin Sodium,Porcine 5,000 Unit/Ml Vial) 3,400 unit 40 unit/kg (3400 unit) IVPUSH PROTOCOL BOLUS PRN; Protocol PRN Reason: 40 unit/kg - Heparin Protocol Heparin Sodium (Porcine) (Heparin Sodium,Porcine 5,000 Unit/Ml Vial) 6,900 unit 80 unit/kg (6900 unit) IVPUSH PROTOCOL BOLUS PRN; Protocol PRN Reason: 80 unit/kg - Heparin Protocol Heparin Sodium/Sodium Chloride (Heparin Sodium,Porcine/1/2ns) 25,000 unit in 250 mls @ 0 mls/hr IVCONT .Q0M [facility]; Protocol Last Titration: 01/07/25 15:36 Dose: 7.64 units/kg/hr, 6.56 mls/hr Documented By: GARRET Co-signed By: MARTINA Magnesium Hydroxide (Milk Of Magnesia 30 Ml Oral.Susp) 30 ml PO DAILY PRN PRN Reason: Constipation Melatonin (Melatonin 3 Mg Tablet) 6 mg PO BEDTIME PRN PRN Reason: Insomnia Labs 05/14/24 07:26 05/14/24 07:26 Labs: Laboratory Results - last 24 hr 05/13/24 05/13/24 05/13/24 20:57 22:16 23:51 MCV MCH MCHC RDW Plt Count MPV Immature Gran % (Auto) Neut % (Auto) Lymph % (Auto) [place] % (Auto) Eos % (Auto) Baso % (Auto) Lymph # (Auto) [place] # (Auto) Eos # (Auto) Baso # (Auto) Abs Immat Gran (auto) Absolute Neuts (auto) Absolute Nucleated RBC Nucleated RBC % (auto) PT INR aPTT Heparin Protocol 150.6 H* D 100.2 H D 51.5 L D Anion Gap Estim Creat Clear Calc Estimated GFR Random Glucose Calcium Respiratory Panel [place] Adenovirus (Rapid PCR) B.pert (TEM-PCR) B.parapertussis DNA PCR C. pneumoniae DNA (PCR) Coronavirus OC43 (PCR) Coronavirus HKU1 (PCR) Coronavirus 229E (PCR) Coronavirus NL63 (PCR) Human Metapneumovir PCR Influenza A (RT-PCR) Influenza B (RT-PCR) M. pneumoniae (PCR) Parainfluenza 1 (PCR) Parainfluenza 2 (PCR) Parainfluenza 3 (PCR) Parainfluenza 4 (PCR) RSV (PCR) Entero/Rhino (PCR) SARS-CoV-2 RNA (RT-PCR) 05/14/24 05/14/24 05/14/24 07:26 07:26 07:26 MCV Cancelled 93.2 MCH Cancelled 32.7 MCHC Cancelled RDW Plt Count MPV Immature Gran % (Auto) Neut % (Auto) Lymph % (Auto) [place] % (Auto) Eos % (Auto) Baso % (Auto) Lymph # (Auto) [place] # (Auto) Eos # (Auto) Baso # (Auto) Abs Immat Gran (auto) Absolute Neuts (auto) Absolute Nucleated RBC Nucleated RBC % (auto) PT INR aPTT Heparin Protocol Anion Gap Estim Creat Clear Calc Estimated GFR Random Glucose Calcium Respiratory Panel [place] Adenovirus (Rapid PCR) B.pert (TEM-PCR) B.parapertussis DNA PCR C. pneumoniae DNA (PCR) Coronavirus OC43 (PCR) Coronavirus HKU1 (PCR) Coronavirus 229E (PCR) Coronavirus NL63 (PCR) Human Metapneumovir PCR Influenza A (RT-PCR) Influenza B (RT-PCR) M. pneumoniae (PCR) Parainfluenza 1 (PCR) Parainfluenza 2 (PCR) Parainfluenza 3 (PCR) Parainfluenza 4 (PCR) RSV (PCR) Entero/Rhino (PCR) SARS-CoV-2 RNA (RT-PCR) 05/14/24 05/14/24 05/14/24 07:26 07:26 07:26 MCV MCH MCHC 35.1 RDW Cancelled 13.3 Plt Count Cancelled 175 MPV Cancelled Immature Gran % (Auto) Neut % (Auto) Lymph % (Auto) [place] % (Auto) Eos % (Auto) Baso % (Auto) Lymph # (Auto) [place] # (Auto) Eos # (Auto) Baso # (Auto) Abs Immat Gran (auto) Absolute Neuts (auto) Absolute Nucleated RBC Nucleated RBC % (auto) PT INR aPTT Heparin Protocol Anion Gap Estim Creat Clear Calc Estimated GFR Random Glucose Calcium Respiratory Panel [place] Adenovirus (Rapid PCR) B.pert (TEM-PCR) B.parapertussis DNA PCR C. pneumoniae DNA (PCR) Coronavirus OC43 (PCR) Coronavirus HKU1 (PCR) Coronavirus 229E (PCR) Coronavirus NL63 (PCR) Human Metapneumovir PCR Influenza A (RT-PCR) Influenza B (RT-PCR) M. pneumoniae (PCR) Parainfluenza 1 (PCR) Parainfluenza 2 (PCR) Parainfluenza 3 (PCR) Parainfluenza 4 (PCR) RSV (PCR) Entero/Rhino (PCR) SARS-CoV-2 RNA (RT-PCR) 05/14/24 05/14/24 05/14/24 07:26 07:26 07:26 MCV MCH MCHC RDW Plt Count MPV 9.2 L Immature Gran % (Auto) 0.4 Neut % (Auto) 57.5 Lymph % (Auto) 30.3 [place] % (Auto) 9.7 Eos % (Auto) 1.6 Baso % (Auto) 0.5 Lymph # (Auto) 1.7 [place] # (Auto) 0.6 Eos # (Auto) 0.1 Baso # (Auto) 0.0 Abs Immat Gran (auto) 0.02 Absolute Neuts (auto) 3.3 Absolute Nucleated RBC Cancelled 0.000 Nucleated RBC % (auto) Cancelled 0.0 PT 12.0 INR 1.0 aPTT Heparin Protocol 59.0 Anion Gap 11 L Estim Creat Clear Calc 63.9 Estimated GFR > 60 Random Glucose 104 Calcium 8.8 D Respiratory Panel [place] Adenovirus (Rapid PCR) B.pert (TEM-PCR) B.parapertussis DNA PCR C. pneumoniae DNA (PCR) Coronavirus OC43 (PCR) Coronavirus HKU1 (PCR) Coronavirus 229E (PCR) Coronavirus NL63 (PCR) Human Metapneumovir PCR Influenza A (RT-PCR) Influenza B (RT-PCR) M. pneumoniae (PCR) Parainfluenza 1 (PCR) Parainfluenza 2 (PCR) Parainfluenza 3 (PCR) Parainfluenza 4 (PCR) RSV (PCR) Entero/Rhino (PCR) SARS-CoV-2 RNA (RT-PCR) 05/14/24 05/14/24 11:04 14:55 MCV MCH MCHC RDW Plt Count MPV Immature Gran % (Auto) Neut % (Auto) Lymph % (Auto) [place] % (Auto) Eos % (Auto) Baso % (Auto) Lymph # (Auto) [place] # (Auto) Eos # (Auto) Baso # (Auto) Abs Immat Gran (auto) Absolute Neuts (auto) Absolute Nucleated RBC Nucleated RBC % (auto) PT INR aPTT Heparin Protocol 58.9 Anion Gap Estim Creat Clear Calc Estimated GFR Random Glucose Calcium Respiratory Panel [place] See Note Adenovirus (Rapid PCR) Not Detected B.pert (TEM-PCR) Not Detected B.parapertussis DNA PCR Not Detected C. pneumoniae DNA (PCR) Not Detected Coronavirus OC43 (PCR) Not Detected Coronavirus HKU1 (PCR) Not Detected Coronavirus 229E (PCR) Not Detected Coronavirus NL63 (PCR) Not Detected Human Metapneumovir PCR Not Detected Influenza A (RT-PCR) Not Detected Influenza B (RT-PCR) Not Detected M. pneumoniae (PCR) Not Detected Parainfluenza 1 (PCR) Not Detected Parainfluenza 2 (PCR) Not Detected Parainfluenza 3 (PCR) Not Detected Parainfluenza 4 (PCR) Not Detected RSV (PCR) Not Detected Entero/Rhino (PCR) Detected A SARS-CoV-2 RNA (RT-PCR) Not Detected Assessment and Plan (1) Expressive aphasia: Status: Acute Assessment and Plan: 88/M with HTN, HLD presenting with acute stroke manifested by expressive aphasia expressive aphasia-?tia cta negative speech seems to be improved. -Conservative management with BP control, high-intensity statin, ASA, speech rehab, Neuro consult. speech ,pt/ot ? elevated trops /nstemi? continue asa.statin,iv heparin cardiologyeval-continue iv heaprin (?demand nstemi) HTN -Allow permissive HTN; resume home medications in 24 to 48 hours HLD -Increase Lipitor to 40 mg Neuropathy -Gabapentin cough -has rhino/enterivirus uri prn cough medication DVT -heparin for DVT prophylaxis ongoing need for stay-?tia -need workup /neurology eval,possible nstemi-on iv heparin ,pt./ptt protocol (2) Acute non-ST elevation myocardial infarction (NSTEMI): Status: Acute Quality Stroke Does the patient have a stroke diagnosis?: Yes Reason for No Anti-thrombotic by Day Two: N/A - Med Ordered VTE Prior VTE?: No VTE Risk Level:: Medical - moderate - high VTE Device Contraindication: Treatment Not Indicated VTE Drug Contraindication: N/A - Med Ordered
--- NOTE | 2024-05-14 18:14 | P.CNNE_ITS ---
History of Present Illness Data of Consult Service Date: 05/14/24 Primary Care Provider: Candido Wren, [facility] HPI Reason for consult: Stroke This is a 88-year-old male with a history of dyslipidemia, osteopenia, hypertension, and prostate cancer presented to the ED after waking up with expressive dysphasia at 2.30 am. His last known well time was 11:30 PM. His noticed word-finding difficulties and frustration with speaking around 4:30 AM this morning. His NIH stroke scale score is 1. A CT head and CTA of the head and neck showed no acute findings. Neurology determined he is not a good candidate for TNK and recommended conservative management. Troponin I is 88. ECG shows no acute ischemic changes. He has no chest pain, shortness of breath, or other neurological changes.No previous history of strokes. His speech is improved but he still has significant difficulties expressing himself. He has difficulty walking, who a day, right greater than left foot drop from spinal stenosis. He has weakness of both shoulder abduction from a rotator cuff tears PMFSH Past Medical History Medical History Lumbar back pain Family History Family History Father Smoker Mother No problems noted. Brother No problems noted. Daughter No problems noted. Daughter No problems noted. Maternal Grandfather No problems noted. Maternal Grandmother No problems noted. Paternal Grandfather No problems noted. Paternal Grandmother No problems noted. Sister No problems noted. Sister No problems noted. Surgical History Surgical History No pertinent past surgical history Social History Social History Household Members: Significant Other Housing: House Do you presently have visiting nurse or other home services: No Alcohol intake: current Alcohol intake frequency: 0-2 drinks per day Alcohol type: wine Patient Tobacco Use Status: Never used Tobacco Smoked in Last 30 Days: No e-Cigarette/Vaping Use: Never Used Use of substances other than those prescribed or required for medical reasons: No Currently Displaying Signs/Symptoms of Drug Intoxication Withdrawal: No Have you been hit, kicked, punched, or otherwise hurt by someone within the past year? If so, by whom?: No Do you feel safe in your current relationship?: Yes Is there a partner from a previous relationship who is making you feel unsafe now?: No Are you made to feel afraid or neglected: No Advance Directives: No Advance Directives Information Provided: Yes Do you have a plan to hurt others: No Plan Recently lost weight without trying: No Nutrition Risks: No Nutritional Risk Poor oral hygiene: No service: Yes Current occupational status: retired Cognitive needs: No Hearing needs: No Vision needs: Yes Meds Allergies Allergy/AdvReac Type Severity Reaction Status Date / Time No Known Allergies Allergy Verified 05/13/24 10:11 [No Known Allergies*] Active Medications: Current Medications Acetaminophen (Acetaminophen 325 Mg Tablet) 650 mg PO Q6H PRN PRN Reason: Pain, Mild 1-3,fever,headache Aspirin (Aspirin Enteric Coated 81 Mg Tablet.Dr) 81 mg PO DAILY [facility] Last Admin: 05/14/24 10:37 Dose: 81 mg Atorvastatin Calcium (Atorvastatin Calcium 40 Mg Tablet) 40 mg PO DAILY [facility] Last Admin: 05/14/24 10:37 Dose: 40 mg Calcium Carbonate (Calcium Carbonate 750 Mg Tab.Chew) 750 mg PO Q4H PRN PRN Reason: Heartburn Guaifenesin (Guaifenesin 200 Mg/10 Ml 10 Ml Liquid) 10 ml PO Q6H PRN PRN Reason: Cough Heparin Sodium (Porcine) (Heparin Sodium,Porcine 5,000 Unit/Ml Vial) 3,400 unit 40 unit/kg (3400 unit) IVPUSH PROTOCOL BOLUS PRN; Protocol PRN Reason: 40 unit/kg - Heparin Protocol Heparin Sodium (Porcine) (Heparin Sodium,Porcine 5,000 Unit/Ml Vial) 6,900 unit 80 unit/kg (6900 unit) IVPUSH PROTOCOL BOLUS PRN; Protocol PRN Reason: 80 unit/kg - Heparin Protocol Heparin Sodium/Sodium Chloride (Heparin Sodium,Porcine/1/2ns) 25,000 unit in 250 mls @ 0 mls/hr IVCONT .Q0M [facility]; Protocol Last Titration: 05/14/24 15:36 Dose: 7.64 units/kg/hr, 6.56 mls/hr Magnesium Hydroxide (Milk Of Magnesia 30 Ml Oral.Susp) 30 ml PO DAILY PRN PRN Reason: Constipation Melatonin (Melatonin 3 Mg Tablet) 6 mg PO BEDTIME PRN PRN Reason: Insomnia Home Medications ?Medication ?Instructions ?Recorded ?Confirmed ?Last Taken ?Type aspirin 81 mg tablet,delayed 81 mg PO DAILY 03/30/20 05/13/24 Unknown History release (Adult Aspirin Regimen) atorvastatin 10 mg tablet 10 mg PO BEDTIME 05/13/24 05/13/24 Unknown History lisinopril 20 mg tablet 20 mg PO BEDTIME 05/13/24 05/13/24 Unknown History Physical Exam 2 Vital Signs: Vital Signs: Last Vital Signs Temp 97.4 F 05/14/24 16:00 Pulse 80 05/14/24 16:00 Resp 18 05/14/24 16:00 BP 124/62 05/14/24 16:00 Pulse Ox 94 05/14/24 16:00 O2 Del Method Room Air 05/14/24 16:00 BMI result Body Mass Index 30.6 Neuro: Other: He has some word finding difficulties but his comprehension is intact. He follows commands well. His some sentences he can speak without any problems. Cranial nerves II through XII are normal. He has a pronation drift of the right upper extremity and bilateral shoulder abduction weakness at 4 minus/5. He has atrophy of the anterior tibial muscle on the right with a right foot drop and weakness of the left dorsiflexors and everters of the ankle with areflexia in the lower extremities. 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 Right upper extremity pronation drift could be related to the rotator cuff tear. Recommendation: MRI of the brain: Speech therapy. CTA does not show is any intracranial occlusions. 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 Would start aspirin 81 mg and Plavix 75 mg. atorvastatin 80 mg. (2) Lumbar radiculopathy, chronic: Status: Acute Chronic bilateral L4-5 radiculopathy, right worse than left, with a right foot drop and atrophy of the leg muscles. This is an ongoing chronic problem. Since he is mostly homebound he does not need an AFO brace. Procedures Date of Service Date of Service: 05/14/24
[2024-05-14 20:00] VITALS: BP 114/60; PULSE 68; RESP 20; TEMP 36.2; O2SAT 95
[2024-05-15] VITALS (7 sets, daily range): BP systolic 123–160; BP diastolic 65–81; PULSE 67–71; RESP 16–20; TEMP 36.1–36.4; O2SAT 93–96
[2024-05-15] MEDS: Heparin Sodium,Porcine/1/2NS 25,000 UNIT/250 ML IV.SOLN 6.56 UNIT IVCONT (03:23)
[2024-05-15 07:41] LABS: PTT Heparin Drip 64.2 SEC (53-77.9)
[2024-05-15] MEDS: Atorvastatin Calcium 40 MG TABLET PO (08:09)
[2024-05-15] MEDS: Aspirin Enteric Coated 81 MG TABLET.DR PO (08:09)
[2024-05-15] MEDS: Omeprazole 20 MG CAPSULE.DR PO ×2 (10:16→15:48)
--- NOTE | 2024-05-15 10:28 | PM.PNCARD ---
Subjective Subjective Date of Service: 05/15/24 Interval history: He states he feels fine. No cardiac complaints. No chest pain whatsoever. Review of Systems Review of Systems Yes all other systems are reviewed and are negative Constitutional: Reports as per HPI and Reports no additional constitutional complaints Eyes: Reports as per HPI and Denies no additional eye complaints Denies system reviewed and no additional complaints, except as documented and Reports as per HPI Cardiovascular: Reports as per HPI, Reports no additional cardiovascular complaints, Denies acrocyanosis, Denies cool extremities, Denies chest pain, Denies leg edema, Denies lightheadedness, Denies palpitations and Denies dyspnea Respiratory: Reports as per HPI, Denies no additional respiratory complaints and Denies dyspnea Gastrointestinal: Reports as per HPI and Denies no additional gastrointestinal complaints Genitourinary: Reports no additional male genitourinary complaints and Reports as per HPI Musculoskeletal: Reports no additional musculoskeletal complaints and Reports as per HPI Skin/Breast: Reports system reviewed and no additional complaints, except as docu Reports system reviewed and no additional complaints, except as documented and Reports as per HPI Psychiatric: Reports no additional psychiatric complaints and Reports as per HPI Endocrine: Reports no additional endocrine complaints, Reports as per HPI and Denies palpitations Hematologic/Lymphatic: Reports no additional hematologic/lymphatic complaints and Reports as per HPI Allergic/Immunologic: Reports no additional allergic/immunologic complaints and Reports as per HPI Physical Exam Vital Signs: Last Vital Signs Temp 97.3 F 05/15/24 07:34 Pulse 67 05/15/24 07:34 Resp 18 05/15/24 07:34 BP 160/70 H 05/15/24 07:34 Pulse Ox 95 05/15/24 07:34 O2 Del Method Room Air 05/15/24 07:34 BMI result Body Mass Index 30.6 Const General: comfortable and no acute distress Orientation/consciousness: patient oriented x3 HEENT Other: Unremarkable Head: Yes normal to inspection Neck Neck: Yes normal visual inspection Chest Chest palpation & inspection: normal inspection of the chest Resp Auscultation: clear to auscultation bilaterally Cardio Palpation: normal PMI Heart sounds: S1 normal heart sound present, S2 normal heart sound present, no gallops, no murmurs and no rubs GI Palpation (GI): Soft to palpation Back/Spine/Pelvis Other: unremarkable Skin General skin exam: no rashes or lesions noted Neuro General: patient oriented x3 Extrem General: Yes normal to inspection Psych Mental Status: mental status grossly normal Objective Labs and Meds 05/14/24 07:26 05/14/24 07:26 Lab results: Laboratory Results - last 24 hr 05/14/24 05/14/24 05/15/24 11:04 14:55 07:17 Hold Purple Top SEE NOTE aPTT Heparin Protocol 58.9 64.2 Respiratory Panel Pederson See Note Adenovirus (Rapid PCR) Not Detected B.pert (TEM-PCR) Not Detected B.parapertussis DNA PCR Not Detected C. pneumoniae DNA (PCR) Not Detected Coronavirus OC43 (PCR) Not Detected Coronavirus HKU1 (PCR) Not Detected Coronavirus 229E (PCR) Not Detected Coronavirus NL63 (PCR) Not Detected Human Metapneumovir PCR Not Detected Influenza A (RT-PCR) Not Detected Influenza B (RT-PCR) Not Detected M. pneumoniae (PCR) Not Detected Parainfluenza 1 (PCR) Not Detected Parainfluenza 2 (PCR) Not Detected Parainfluenza 3 (PCR) Not Detected Parainfluenza 4 (PCR) Not Detected RSV (PCR) Not Detected Entero/Rhino (PCR) Detected A SARS-CoV-2 RNA (RT-PCR) Not Detected Imaging Radiologist's impression: Impressions Chest X-Ray 05/14/24 11:45 IMPRESSION: Hypoexpanded lungs without any acute pneumonic process. Electronically signed by: Gregorio Shell MD 05/14/2024 12:07 PM [facility] [place] Progress Note: A&P Assessment and plan (1) Expressive aphasia: Status: Acute (2) Acute non-ST elevation myocardial infarction (NSTEMI): Status: Acute Plan Troponin levels are 83 and 155. Echocardiogram with LVEF of 62%. Severe left ventricular hypertrophy. Moderate mitral annular calcification. Demand related NSTEMI in the setting of stroke. There is no evidence of cardiac dysfunction on the echocardiogram and he has no chest pain either. Considering his age, recommend conservative care. May remain on aspirin and statins. Resume his home dose of lisinopril. Ambulate and see how he does. Time Spent With Patient Time: Total time managing care of this patient today ____ minutes. Progress Note: Quality Stroke Does the patient have a stroke diagnosis?: Yes Reason for No Anti-thrombotic by Day Two: N/A - Med Ordered Procedures Date of Service Date of Service: 05/15/24
--- NOTE | 2024-05-15 15:16 | MHC.SP.ADU ---
Referring provider: Chapo Diane Reason for Referral: Speech Therapy Consult Type of Treatment: 86429 Evaluation Speech Sound Production WITH Language Date of Plan of Treatment: 05/15/24 Onset of Symptoms/Illness: 05/15/24 Date Treatment Started: 05/15/24 Medical Diagnosis: Mixed Dysarthria Primary Speech Language Diagnosis: R47.1 Dysarthria Secondary Speech Language Diagnosis: R47.82 Fluency History 88 y/o M with PMH dyslipidemia, osteopenia, HTN, prostate CA with acute onset of expressive dysphasia, word finding difficulties. Head CT non-acute, pt not candidate for TNK, ECG non-acute. Pt is on regular diet. Referred for eval to assess dysarthria/aphasia. Medical History: Recent Hospitalizations: No Respiratory Needs: Room Air Patient Orientation: Alert & Oriented x 4 Reported Speech, Language, Cognition difficulties: Speaking Comments: Pt presents with moderate mixed dysarthria characterized by syllable breakdowns and deterioration of precision across length of spoken utterance. Pt is aware of dysarthria, and notes 'sometimes [he] speaks fine, while other times the words don't come out'. Pt participated in motor speech evaluation by answering simple questions at the word and sentence level, producing sequences from rote memory, and conversing at the word and sentence levels. Skilled MANAGER EXCHANGE intervention indicated d/t nature of dysarthria and potential to promote spontaneous recovery through direct service. Assessment Speech Production: Dysarthric Nonfluent Clinical Impression: Impaired Informal Voice Assessment: Voice Loudness: Voice Nasal Resonance: Hypernasal Voice Oral Resonance: Voice Phonatory-based Quality: Weak Voice Pitch: Limited Variation Pitch Breaks Voice Other Observations: Progressively Weak Voice Inadequate Breath Support Disordered Intonation Clinical Impression: Impaired Impressions and Recommendations Summary: Impact on Daily Function/Activity Limitations: Daily Activities: Moderate Interpersonal Interactions: Moderate Education: Employment: Community: Moderate Prognosis for Improvement: Good Comment: Recommendation for Speech Therapy: Inpatient Speech Therapy Speech Therapy through [facility] Speech Therapy through Rehab Facility Patient Education: Completed: Yes Patient/Caregiver Education: Described Results of Evaluation Patient expressed understanding of evaluation Patient agrees with goals and treatment plan Comments/Barriers to Learning: Project Management Intern Clinican/Clinical Fellow: No Supervisory Statement: N/A Speech Language Pathologist: Carrie Morelos M.S., [facility]-MANAGER EXCHANGE
--- NOTE | 2024-05-15 16:16 | P.PNIM_ITS ---
Progress Note: A&P (1) Expressive aphasia: Status: Acute Plan 88/M with HTN, HLD presenting with acute stroke manifested by expressive aphasia expressive aphasia-possible cva cta negative mri permissive htn speech seems to be improved. -Conservative management with BP control, high-intensity statin, ASA,added plavix , speech rehab, Neuro consult. speech ,pt/ot ? elevated trops /nstemi? continue asa.statin,stop iv heparin cardiologyeval-continue iv heaprin (?demand nstemi) HTN -Allow permissive HTN; resume home medications in 24 to 48 hours HLD -Increase Lipitor to 40 mg Neuropathy -Gabapentin cough -has rhino/enterivirus uri prn cough medication DVT -heparin for DVT prophylaxis ongoing need for stay-cva -need workup /neurology eval,possible nstemi-on iv heparin ,pt./ptt protocol Subjective Subjective Date of Service: 05/15/24 Interval History: acute cva Review of Systems speech seems improving bp flacutating Physical Exam 2 Vital Signs: Vital Signs: Last Vital Signs Temp 97.3 F 05/15/24 15:04 Pulse 71 05/15/24 15:04 Resp 18 05/15/24 15:04 BP 147/81 H 05/15/24 15:04 Pulse Ox 95 05/15/24 15:04 O2 Del Method Room Air 05/15/24 15:04 BMI result Body Mass Index 30.6 Appearance: Alert.? Oriented X3.? cvs: rrr, [id number] . res: clear to auscultation ,no rhonchii or wheezing abd: no rebound or guarding ,nt, bs present. ext pulses present , no cyanosis . neuro: axo3 , nonfocal. Objective Data Current Medications Acetaminophen (Acetaminophen 325 Mg Tablet) 650 mg PO Q6H PRN PRN Reason: Pain, Mild 1-3,fever,headache Aspirin (Aspirin Enteric Coated 81 Mg Tablet.) 81 mg PO DAILY [facility] Last Admin: 05/15/24 08:09 Dose: 81 mg Atorvastatin Calcium (Atorvastatin Calcium 40 Mg Tablet) 40 mg PO DAILY [facility] Last Admin: 05/15/24 08:09 Dose: 40 mg Calcium Carbonate (Calcium Carbonate 750 Mg Tab.Chew) 750 mg PO Q4H PRN PRN Reason: Heartburn Guaifenesin (Guaifenesin 200 Mg/10 Ml 10 Ml Liquid) 10 ml PO Q6H PRN PRN Reason: Cough Magnesium Hydroxide (Milk Of Magnesia 30 Ml Oral.Susp) 30 ml PO DAILY PRN PRN Reason: Constipation Melatonin (Melatonin 3 Mg Tablet) 6 mg PO BEDTIME PRN PRN Reason: Insomnia Omeprazole (Omeprazole 20 Mg Capsule.Dr) 20 mg PO BID@0630,1630 [facility] Last Admin: 05/15/24 15:48 Dose: 20 mg Labs 05/14/24 07:26 05/14/24 07:26 Labs: Laboratory Results - last 24 hr 05/15/24 07:17 Hold [facility] SEE NOTE aPTT Heparin Protocol 64.2 Quality Stroke Does the patient have a stroke diagnosis?: Yes Reason for No Anti-thrombotic by Day Two: N/A - Med Ordered VTE Prior VTE?: No VTE Risk Level:: Medical - moderate - high VTE Device Contraindication: Treatment Not Indicated VTE Drug Contraindication: N/A - Med Ordered
[2024-05-16 03:12] VITALS: BP 161/82; PULSE 72; RESP 18; TEMP 36.4; O2SAT 94
[2024-05-16] MEDS: Pantoprazole Sodium 20 MG TABLET.DR PO (06:22)
[2024-05-16] MEDS: guaiFENesin 200 MG/10 ML 10 ML LIQUID PO (06:22)
[2024-05-16 07:32] VITALS: BP 179/85; PULSE 91; RESP 18; TEMP 36.8; O2SAT 97
[2024-05-16] MEDS: Clopidogrel Bisulfate 75 MG TABLET PO (08:31)
[2024-05-16] MEDS: Aspirin Enteric Coated 81 MG TABLET.DR PO (08:31)
[2024-05-16] MEDS: Atorvastatin Calcium 40 MG TABLET PO (08:31)
[2024-05-16] MEDS: lisinopriL 20 MG TABLET PO (10:21)
[2024-05-16 11:23] VITALS: BP 156/83; PULSE 85; RESP 18; TEMP 36.5; O2SAT 98
--- NOTE | 2024-05-16 11:41 | W.MHC.F2F ---
Service Date Service Date: 05/16/24 Encounter Date of encounter: 05/16/24 Encounter: cva , htn ,hlp Reasons for Services Signs and symptoms assessed: moniter for new weakness or aphasia Reason for chcf: CV/CP assess and/or care, medication management, medication treatment and teach disease management Reason for physical therapy: home safety and mobility, therapeutic exercises, restore joint function, gait/transfer training, assess need for DME, ADL training, energy conservation and other Reason for speech therapy: swallowing impairment, speech impairment, cognitive impairment and other MD Overseeing Care: Candido Wren Homebound: Leaving the home is medically contraindicated at this time without the asist of a device and/or another person due th the listed conditions above and below. Reason homebound: weakness related to hospital stay Homebound supporting statement: Patient is generalized weak post hospitalization, has new CVA- need help for appointments,, disease management, PT, speech Certification: Based on the above findings, I certify that this patient is confined to the home and needs intermittent chcf care, physical therapy and/or speech therapy, or continues to need occupational therapy. The patient is under my care, and I have initiated the establishment of the plan of care. The patient will be followed by a physician who will periodically review the plan of care. Time Spent With Patient Time: Total time managing care of this patient today ____ minutes.
--- NOTE | 2024-05-16 11:44 | PM.DS ---
DS: Providers Provider Date of Service: 05/16/24 Date of admission: 05/13/24 13:29 Date of discharge: 05/16/24 Primary care physician: ANNETTA Lincoln- Consults: 05/13/24 13:29 Consult to Neurology Routine Consulting Provider: Alec Reyes Reason for consultation: stoke Has provider been notified: No 05/13/24 14:22 Consult to Cardiology Stat Consulting Provider: [facility] Reason for consultation: Expressive aphasia, elevated troponins Has provider been notified: Yes 05/14/24 10:46 Consult to Cardiology Routine Consulting Provider: [facility] Reason for consultation: Elevate dtroponin Has provider been notified: No DS: Diagnosis Discharge Diagnosis (1) Expressive aphasia: Status: Acute DS: Summary Hospital Course Hospital Course: HPI: 88-year-old male with a history of dyslipidemia, osteopenia, hypertension, and prostate cancer presented to the ED after waking up with expressive dysphasia. His last known well time was 11:30 PM. His noticed word-finding difficulties and frustration with speaking around 4:30 AM this morning. His NIH stroke scale score is 1. A CT head and CTA of the head and neck showed no acute findings. Neurology determined he is not a good candidate for TNK and recommended conservative management. Troponin I is 88. ECG shows no acute ischemic changes. He has no chest pain, shortness of breath, or other neurological changes. Hospital course: Patient was admitted with expressive aphasia-further workup with MRI found to have Acute left posterior frontal infarct, elevated troponins :seen by neurology and cardiology : nstemi thought to be related to demand treated conservatively with iv heparin for 48hrs . neurology saw the patient rec: CTA does not show is any intracranial occlusions. 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 atorvastatin,Speech therapy.patient symptoms seems to be improved . seen by speech and pt-will need home speech/pt. htn -continue lisinopril which can be adjusted outpatient if needed for blood pressure. patient also has rhino/enterovirus uri: symptoms seems to be improved. plan: added plavix 75 mg qd atrovastatin 40 mg qd for htn continue lisinopril which can be adjusted outpatient if needed for blood pressure. follow up with pcp and cardiology outpatient(cardiology may arrange their own appointment). Above management discussed with the patient in detail length he understand and in agreement with the above plan, time spent 40 minutes. Time Attestation Total time managing care of this patient today: 40 mintues. Discharge Coordination Time (in mins): 40 min Quality: Safe Use of Opioids Does Pt have an Active Cancer Diagnosis on the Problem List?: No Quality: Stroke Does the patient have a stroke diagnosis?: No Physical Exam Vital Signs: Vital Signs: Last Vital Signs Temp 97.7 F 05/16/24 11:23 Pulse 85 05/16/24 11:23 Resp 18 05/16/24 11:23 BP 156/83 H 05/16/24 11:23 Pulse Ox 98 05/16/24 11:23 O2 Del Method Room Air 05/16/24 11:23 BMI result Body Mass Index 30.6 Appearance: Alert.? Oriented X3.? cvs: rrr, [id number] . res: clear to auscultation ,no rhonchii or wheezing abd: no rebound or guarding ,nt, bs present. ext pulses present , no cyanosis . neuro: axo3 , nonfocal. DS: Data Imaging Chest x-ray: Radiologist's impression: ITS Impressions Head CT 05/13/24 09:56 IMPRESSION: No acute intracranial process seen. This critical result was discussed with Dr. Ravinder Garsia at 10:05 A.M. on 05/13/2024. It was ascertained that the content and urgency of the report was understood at the time of direct communication. Electronically signed by: Gregorio Shell MD 05/13/2024 10:11 AM EST RP Head/Neck CTA 05/13/24 10:02 IMPRESSION: No main cerebral artery occlusion or embolus or aneurysm. No dissection, vessels of the neck. 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 Discussed with the medical team in the emergency department at 10:26 AM. This critical test result is communicated to: Electronically signed by: Rajan Durant MD 05/13/2024 10:39 AM EST RP Chest X-Ray 05/14/24 11:45 IMPRESSION: Hypoexpanded lungs without any acute pneumonic process. Electronically signed by: Gregorio Shell MD 05/14/2024 12:07 PM EST RP Brain MRI 05/15/24 12:14 IMPRESSION: Acute left posterior frontal infarct. Electronically signed by: Adam Arreola MD 05/15/2024 01:31 PM EST RP Discharge Plan Discharge Anticipated Discharge Date/Time: 05/16/24 11:26 Patient Disposition: Home Health Service Discharge Diagnosis: cva , htn Referrals: [facility] [Outside] - 1 Week [facility] [Outside] - 1 Week Candido Wren FNP-[facility] [Primary Care Provider] - 1 Week Discharge Medications: New atorvastatin 40 mg Tablet 40 mg PO DAILY Qty: 60 0RF clopidogrel 75 mg Tablet 75 mg PO DAILY Qty: 90 0RF pantoprazole 20 mg Tablet,Delayed Release (Dr/Ec) 20 mg PO DAILY Qty: 30 0RF guaifenesin 100 mg/5 mL Liquid 5 mg PO Q6H PRN (Reason: Cough) Qty: 100 0RF Continued lisinopril 20 mg tablet 20 mg PO BEDTIME aspirin [Adult Aspirin Regimen] 81 mg tablet,delayed release (DR/EC) 81 mg PO DAILY Discontinued atorvastatin 10 mg tablet 10 mg PO BEDTIME Discharge Orders: Discharge Order (Routine); Ordered 05/16/24 Ordered By: Chapo Diane Diet: Advance to usual diet Activity on Discharge: As tolerated Stand Alone Forms: Patient Portal Discharge page Print Language: Maldivian Care Plan Goals: Patient was admitted with expressive aphasia-further workup with MRI found to have Acute left posterior frontal infarct, elevated troponins :seen by neurology and cardiology : nstemi thought to be related to demand treated conservatively with iv heparin for 48hrs . neurology dsaw the patient rec: CTA does not show is any intracranial occlusions. 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 Would start aspirin 81 mg and Plavix 75 mg. atorvastatin,Speech therapy. htn -continue lisinopril which can be adjusted outpatient if needed for blood pressure. patient also has rhino/enterovirus uri: symptoms seems to be improved. follow up with pcp and cardiology outpatient(cardiology may arrange their own appointment). Health Concerns: as above. Plan of Treatment: added plavix 75 mg qd atrovastatin 40 mg qd for htn continue lisinopril which can be adjusted outpatient if needed for blood pressure. Assessment: as above. Discharge Date/Time: 05/16/24 13:42
--- NOTE | 2024-05-16 12:21 | MHC.CM.PN ---
Pt has been medically cleared, he will go home via family transport and have home care services from [facility].
== END 2024-05-16 13:42 | disposition home health service (06) | DRG 64 ==
LOC: HO.ED 11:54 → HO.EDOVER 13:41 → HO.IMC 14:55
PROVIDERS: Internal Medicine; Admitting Provider Internal Medicine; Emergency Provider Emergency Medicine Emergency Medical Services; PCP Nurse Practitioner Family; Visit Provider Internal Medicine
DX: I63.512 Cerebral infarction due to unspecified occlusion or stenosis of left middle cerebral artery (principal); I21.A1 Myocardial infarction type 2; R47.01 Aphasia; R29.701 NIHSS score 1; I10 Essential (primary) hypertension; E78.5 Hyperlipidemia, unspecified; M54.16 Radiculopathy, lumbar region; I65.22 Occlusion and stenosis of left carotid artery; M21.371 Foot drop, right foot; G62.9 Polyneuropathy, unspecified; B97.10 Unspecified enterovirus as the cause of diseases classified elsewhere; B97.89 Other viral agents as the cause of diseases classified elsewhere; Z79.82 Long term (current) use of aspirin; Z79.899 Other long term (current) drug therapy
CPT/HCPCS: 36415; 70450; 70496; 70498; 70551; 71045; 80048; 80061; 80076; 80307; 82947; 84484; 85025; 85027; 85610; 85730; 87633; 92507; 92523; 93005; 93306; 97116; 97162; 97166; 97530; 97535; 99285; J1644; Q9957; Q9967

== ENCOUNTER → 2024-05-13 09:56 | Outpatient (BNV) | payer MEDICARE, SELFPAY | PROVIDERS: Admitting Provider Internal Medicine; Emergency Provider Emergency Medicine Emergency Medical Services; PCP Nurse Practitioner Family; Visit Provider Internal Medicine | DX: R94.31 Abnormal electrocardiogram [ECG] [EKG] (principal) | CPT/HCPCS: 93010 ==

== ENCOUNTER → 2024-05-13 09:56 | Outpatient (BNV) | payer MEDICARE, SELFPAY | PROVIDERS: Emergency Provider Emergency Medicine Emergency Medical Services; PCP Nurse Practitioner Family; Visit Provider Radiology Diagnostic Radiology | DX: I65.22 Occlusion and stenosis of left carotid artery (principal); I63.9 Cerebral infarction, unspecified | CPT/HCPCS: 70450; 70496; 70498 ==

== ENCOUNTER 2024-05-13 13:29 | Outpatient (BNV) | payer MEDICARE, SELFPAY | END 2024-05-14 11:45 | PROVIDERS: Admitting Provider Internal Medicine; Emergency Provider Emergency Medicine Emergency Medical Services; PCP Nurse Practitioner Family; Visit Provider Radiology Diagnostic Radiology | DX: J98.4 Other disorders of lung (principal) | CPT/HCPCS: 71045 ==

== ENCOUNTER 2024-05-13 13:29 | Outpatient (BNV) | payer MEDICARE, SELFPAY | END 2024-05-15 12:14 | PROVIDERS: Admitting Provider Internal Medicine; Emergency Provider Emergency Medicine Emergency Medical Services; PCP Nurse Practitioner Family; Visit Provider Radiology Diagnostic Radiology | DX: I63.9 Cerebral infarction, unspecified (principal) | CPT/HCPCS: 70551 ==

== ENCOUNTER 2024-05-13 13:29 | Outpatient (BNV) | payer MEDICARE, SELFPAY | END 2024-05-14 07:00 | PROVIDERS: Admitting Provider Internal Medicine; Emergency Provider Emergency Medicine Emergency Medical Services; PCP Nurse Practitioner Family; Visit Provider Internal Medicine | DX: I35.8 Other nonrheumatic aortic valve disorders (principal); I34.81 Nonrheumatic mitral (valve) annulus calcification; I21.4 Non-ST elevation (NSTEMI) myocardial infarction | CPT/HCPCS: 93306 ==

== ENCOUNTER → 2024-05-13 13:29 | Outpatient (BNV) | payer MEDICARE, SELFPAY | PROVIDERS: Admitting Provider Internal Medicine; Emergency Provider Emergency Medicine Emergency Medical Services; PCP Nurse Practitioner Family; Visit Provider Internal Medicine | DX: R47.01 Aphasia (principal); I21.4 Non-ST elevation (NSTEMI) myocardial infarction | CPT/HCPCS: 99223 ==

== ENCOUNTER → 2024-05-13 13:29 | Outpatient (BNV) | payer MEDICARE, SELFPAY | PROVIDERS: Admitting Provider Internal Medicine; Emergency Provider Emergency Medicine Emergency Medical Services; PCP Nurse Practitioner Family; Visit Provider Psychiatry & Neurology Neurology | DX: I69.320 Aphasia following cerebral infarction (principal); M54.16 Radiculopathy, lumbar region | CPT/HCPCS: 99222 ==

== ENCOUNTER → 2024-05-13 13:29 | Outpatient (BNV) | payer MEDICARE, SELFPAY | PROVIDERS: Admitting Provider Internal Medicine; Emergency Provider Emergency Medicine Emergency Medical Services; PCP Nurse Practitioner Family; Visit Provider Internal Medicine | DX: R47.01 Aphasia (principal) | CPT/HCPCS: 99231; 99232; 99239; G0180 ==

== ENCOUNTER → 2024-05-27 10:18 | Outpatient (BNVA) | payer MEDICARE, SELFPAY | PROVIDERS: PCP Nurse Practitioner Family; Visit Provider Nurse Practitioner Family | DX: R74.01 Elevation of levels of liver transaminase levels (principal); I63.9 Cerebral infarction, unspecified; I21.4 Non-ST elevation (NSTEMI) myocardial infarction | CPT/HCPCS: 96127; 99212 ==

== ENCOUNTER 2024-05-27 10:19 | Outpatient (AMB) | payer MEDICARE, SELFPAY ==
[2024-05-27 10:20] VITALS: BP 136/74; PULSE 80; O2SAT 95; BMI 31.2
--- NOTE | 2024-05-27 10:20 | MHC.PC.OV ---
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: No Accompanied by: Spouse Allergies No Known Allergies [No Known Allergies*] Allergy (Verified 05/27/24 11:27) Medication List - Last Reconciled 05/27/24 by NAILA Ball aspirin (Adult Aspirin Regimen) 81 mg PO DAILY atorvastatin 40 mg PO DAILY clopidogrel 75 mg PO DAILY lisinopril 20 mg PO DAILY pantoprazole 20 mg PO DAILY Tobacco use date assessed: 05/27/24 Fall risk assessment: No Falls in past year Last assessed Fall Risk: 05/27/24 Dental Screening Dental Screen Date: 05/27/24 Did you have a dental visit in the last 12 months?: Yes Did you have a dental problem in the last 6 months where you did not have access to dental care?: No Was dental information given to patient?: Patient has dentist HPI TCM HPI Details Chief Complaint Patient presents with expressive aphasia following hospital discharge. History of Present Illness The patient is an 88-year-old male presenting with expressive aphasia. This condition began acutely when the patient woke up with significant difficulty in word finding. Following this event, the patient was evaluated by neurology and cardiology, who recommended conservative management due to the patient's unsuitability for tissue plasminogen activator (TNK). An MRI identified an acute left posterior frontal infarct. Concurrently, the patient demonstrated elevated troponin levels, and the diagnosis of a Non-ST Elevation Myocardial Infarction (NSTEMI) was attributed to increased demand. 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 Treatment with aspirin, Plavix, and atorvastatin was advised, along with speech therapy. During the hospital stay, he suffered a rhinoenterovirus upper respiratory infection, with symptom improvement noted thereafter. The patient also reports residual elevation in blood pressure. He uses a wheelchair due to some lower extremity weakness and is participating in home physical therapy. The patient?s anxiousness, particularly in medical settings, exacerbates his expressive aphasia. Currently, he denies any chest pain or shortness of breath but experiences a residual cough from the viral illness. Social History - Accompanied by his . - Engaged in home physical therapy with assigned exercises. - Mobility assisted by wheelchair. - Anxiety noted in medical settings. Health Maintenance - Aspirin and Plavix prescribed for cardiovascular risk reduction. - Atorvastatin initiated for dyslipidemia management. - Incentive spirometer provided for respiratory health. Review of Systems - Cardiovascular: Denies chest pain, denies shortness of breath. - Constitutional: Reports residual cough from recent illness. - Musculoskeletal: Reports lower extremity weakness. - Neurological: Reports expressive aphasia, exacerbated by anxiety. Physical Exam General: Cooperative, healthy appearing, comfortable, no acute distress and well developed, in wheelchair Orientation: Patient oriented x3 Limitations: Lower extremity weakness Head: Normal to inspection Ears: Hearing grossly normal bilaterally Nose: Normal external nose present Face and sinus: Normal facial exam Eyes: Appearance normal, both eyes and all related structures Neck: Normal visual inspection and Yes full ROM Respiratory: Fairly clear to auscultation bilaterally, residual cough present Cardiovascular: Regular rate and rhythm. Normal S1 and S2 GI: Normal to inspection. Soft to palpation and nontender Skin: No rashes or lesions noted Neuro: Expressive aphasia noted, patient oriented x3, able to communicate needs and answer all questions Extremities: Lower extremity weakness noted, normal to inspection Results - MRI: Acute left posterior frontal infarct identified. - Cardiac Biomarkers: Elevated troponin levels. - Carotid Ultrasound/Doppler: 70% stenosis of left internal carotid artery. Plan - Continue aspirin and Plavix to manage left carotid artery occlusion. - Continue atorvastatin for cholesterol management. - Engage in speech therapy to address expressive aphasia. - Home physical therapy for lower extremity weakness. - Monitor blood pressure at home; record at least three times weekly. - Use incentive spirometer for airway clearance to assist with residual URI symptoms. Patient was informed and verbally consented to the use of an ambient scribe for clinic note documentation during this visit. Discussion Notes During the visit, I reviewed the patient's recent history of expressive aphasia and outlined the MRI findings of a left posterior frontal infarct. Conservative management was advised by neurology given his contraindication for TNK therapy. I explained the NSTEMI was likely related to elevated myocardial demand and discussed ongoing use of aspirin, Plavix, and atorvastatin for cardiovascular protection. I provided guidance on using a blood pressure log for home monitoring and set a follow-up appointment in nine days to reassess his blood pressure and overall progress. We discussed the importance of continuing speech and physical therapy exercises to improve aphasia and lower extremity strength. Patient Instructions - Continue taking aspirin and Plavix daily as prescribed. - Engage in prescribed speech and physical therapy exercises. - Record blood pressure at home at least three times a week. Will see him in 9 days - Use the incentive spirometer regularly to promote lung clearance. - Monitor for any new or worsening symptoms and contact healthcare provider if needed. TCM TCM Information Date of Discharge 05/16/24 Discharged From [facility] Interactive Contact Date (Reference documentation from this date) 05/20/24 [facility] Medical History CVA (cerebral vascular accident) Lumbar back pain Surgical History No pertinent past surgical history Family History Father Smoker Mother No problems noted. Brother No problems noted. Daughter No problems noted. Daughter No problems noted. Maternal Grandfather No problems noted. Maternal Grandmother No problems noted. Paternal Grandfather No problems noted. Paternal Grandmother No problems noted. Sister No problems noted. Sister No problems noted. Social History Household Members: Significant Other Housing: House Do you presently have visiting nurse or other home services: No Alcohol intake: current Alcohol intake frequency: 0-2 drinks per day Alcohol type: wine Patient Tobacco Use Status: Never used Tobacco e-Cigarette/Vaping Use: Never Used service: Yes Current occupational status: retired Cognitive needs: No Hearing needs: No Vision needs: Yes Questionnaire PHQ-9 Over the last 2 weeks, how often have you been bothered by any of the following problems? 1. Little interest or pleasure in doing things: not at all 2. Feeling down, depressed, or hopeless: not at all 3. Trouble falling or staying asleep, or sleeping too much: not at all 4. Feeling tired or having little energy: not at all 5. Poor appetite or overeating: not at all 6. Feeling bad about yourself - or that you are a failure or have let yourself or your family down: not at all 7. Trouble concentrating on things, such as reading the newspaper or watching television: not at all 8. Moving or speaking so slowly that other people could have noticed. Or the opposite - being so fidgety or restless that you have been moving around a lot more than usual: not at all 9. Thoughts that you would be better off or of hurting yourself in some way: not at all Total score: 0 Depression Screening Interpretation: Negative Depression Screening Done: Yes 64820 - PHQ-9 Billing: Yes Source: Developed by Drs. Adam Guy, Maral Marks, Shad Washington and colleagues, with an educational zenobia from [employer]. Thrive Questionnaire Date Thrive assessed: 05/27/24 I am a: Patient What is your living situation today?: I have a steady place to live Within the past 12 months, did the food you bought not last and you didn't have the money to get more?: Never true Within the past 12 months, did you worry whether your food would run out before you got money to buy more?: Never true Do you have trouble paying for medicines?: No Do you have trouble getting transportation to medical appointments?: No Do you have trouble paying your heating and electricity bill?: No Do you have trouble taking care of your child, family member or friend?: No Do you have trouble with day-to-day activities such as bathing, preparing meals, shopping, managing finances, etc.?: No Are you currently unemployed and looking for a job?: No Are you interested in more education?: No Please select the resources that you would like help with: None Currently or been in a relationship where the following occur: No concerns reported THRIVE Score: 0 AUDIT C Alcohol Use Questionnaire (AUDIT-C) 1. How often do you have a drink containing alcohol?: 4 or more times a week 2. How many drinks containing alcohol do you have on a typical day when you are drinking?: 1 or 2 3. How often do you have six or more drinks on one occasion?: Never Total Score: 4 Score Reviewed/Action Taken: Yes NABEEL-7 AMB Questionnaire NABEEL-7 Date NABEEL - 7 assessed: 05/27/24 Feeling nervous, anxious, or on edge: 0 = Not at all Not being able to stop or control worryin = Not at all Worrying too much about different things: 0 = Not at all Trouble relaxin = Not at all Being so restless that it is hard to sit still: 0 = Not at all Becoming easily annoyed or irritable: 0 = Not at all Feeling afraid as if something awful might happen: 0 = Not at all Total NABEEL-7 score (0-4 normal; 5-9 mild; 10-14 moderate; 15-21 severe): 0 Source: Developed by Drs. Adam Guy, Maral Marks, Shad Washington and colleagues, with an educational zenobia from [employer]. NABEEL-7 Assessment Billing NABEEL-7 Assessment Tool: NABEEL-7 Assessment 83532 Physical exam (Primary Care) Vital Signs: Last Vital Signs Pulse 80 05/27/24 10:20 BP 136/74 05/27/24 10:20 Pulse Ox 95 05/27/24 10:20 Oxygen Delivery Method Room Air 05/27/24 10:20 BMI result Body Mass Index 31.2 Tobacco/Smoking Status: Tobacco use Status Tobacco use date assessed 05/27/24 05/27/24 10:22 Patient Tobacco Use Status Never used Tobacco 05/27/24 10:22 e-Cigarette/Vaping Use Never Used 05/27/24 10:22 PHQ-9: PHQ-9 Score PHQ-9: Total score 0 05/27/24 10:28 Depression Screening Interpretation: Negative Thrive Assessment: Date of Thrive Assessment Date Thrive assessed 05/27/24 05/27/24 10:22 Currently or been in a relationship where the following occur: No concerns reported Coding Level of Care Code Est Pt Level 4 (98572) Diagnoses Expressive aphasia R47.01 CVA (cerebral vascular accident) I63.9 Acute non-ST elevation myocardial infarction (NSTEMI) I21.4 Additional Codes NABEEL-7 Assessment Billing - NABEEL-7 Assessment Tool: NABEEL-7 Assessment 62332 ([id number]) PHQ-9 - 23059 - PHQ-9 Billing: Yes ([id number]) Assessment & Plan Assessment & Plan (1) Expressive aphasia: Code(s): R47.01 - Aphasia Category: Medical (2) CVA (cerebral vascular accident): Code(s): I63.9 - Cerebral infarction, unspecified Category: Medical (3) Acute non-ST elevation myocardial infarction (NSTEMI): Comment: ? related to demand Code(s): I21.4 - Non-ST elevation (NSTEMI) myocardial infarction Category: Medical Plan . Orders: Orders TSH reflex Free T4 Today I21.4 - Non-ST elevation (NSTEMI) myocardial infarction, I63.9 - Cerebral infarction, unspecified, R47.01 - Aphasia UA CC w/rflx Micro + Cult Today I21.4 - Non-ST elevation (NSTEMI) myocardial infarction, I63.9 - Cerebral infarction, unspecified, R47.01 - Aphasia Lipid Panel Today I21.4 - Non-ST elevation (NSTEMI) myocardial infarction, I63.9 - Cerebral infarction, unspecified, R47.01 - Aphasia Complete Blood Count Auto Diff Today I21.4 - Non-ST elevation (NSTEMI) myocardial infarction, I63.9 - Cerebral infarction, unspecified, R47.01 - Aphasia Comprehensive [place]. Panel Fast Today I21.4 - Non-ST elevation (NSTEMI) myocardial infarction, I63.9 - Cerebral infarction, unspecified, R47.01 - Aphasia Magnesium Today I21.4 - Non-ST elevation (NSTEMI) myocardial infarction, I63.9 - Cerebral infarction, unspecified, R47.01 - Aphasia
== END 2024-05-27 13:41 | disposition home or self-care (01) ==
PROVIDERS: PCP Nurse Practitioner Family; Visit Provider Nurse Practitioner Family
DX: R47.01 Aphasia (principal); I63.9 Cerebral infarction, unspecified; I21.4 Non-ST elevation (NSTEMI) myocardial infarction

== ENCOUNTER 2024-06-05 14:20 | Outpatient (AMB) | payer MEDICARE, SELFPAY ==
[2024-06-05 14:21] VITALS: BP 120/64; PULSE 83; RESP 18; TEMP 37.1; O2SAT 96; BMI 31.2
--- NOTE | 2024-06-05 14:21 | A.OFFPC_ITS ---
Vital Signs 06/05/24 14:21 Height 5 ft 3 in Weight 176 lb BMI 31.2 BP 120/64 Blood Pressure Location Lt brachial Position Sitting Respiration 18 Pulse 83 Pulse Source Pulse Oximeter Temp 98.7 F Temp Source Oral Pulse Oximetry (%) 96 Oxygen Delivery Method Room Air Intake Visit Reasons: 8 month f/up Allergies No Known Allergies [No Known Allergies*] Allergy (Verified 06/05/24 14:22) Tobacco use date assessed: 06/05/24 Last assessed Fall Risk: 06/05/24 Dental Screening Dental Screen Date: 05/27/24 HPI 8 month f/up HPI Details Chief Complaint The patient presents for follow-up regarding blood pressure control. History of Present Illness The patient is an 88-year-old male presenting with a need for follow-up regarding blood pressure management. Previously, the patient experienced a cerebrovascular accident nine days ago, requiring hospitalization. 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 He reports no shortness of breath, chest pain, fever, chills, headache, blurred vision, or dizziness at this time. His home blood pressure readings have consistently been in the 110s to 120s systolic over 70s to low 80s diastolic range, showing stable control with his current regimen. Social History - Currently attending speech therapy [facility]. - Requires physical therapy and is utili zing a wheelchair. Health Maintenance Review of Systems - Cardiovascular: Denies shortness of br eath or chest pain. - General: Denies fever or chills. - Neurological: Denies headache, blurred vision, dizziness. Physical Exam General: Cooperative, healthy appearing, comfortable, no acute distress and well developed Orientation: Patient oriented x3, slight expressive aphasia noted Limitations: Patient currently in a wheelchair Head: Normal to inspection Ears: Hearing grossly normal bilaterally Nose: Normal external nose present Face and sinus: Normal facial exam Eyes: Appearance normal, both eyes and all related structures Neck: Normal visual inspection and Yes full ROM Respiratory: Normal respiratory effort and able to speak in complete sentences. Clear to auscultation bilaterally Cardiovascular: Regular rate and rhythm. Normal S1 and S2 GI: Normal to inspection. Soft to palpation and nontender Skin: No rashes or lesions noted Neuro: Patient oriented x3 Extremities: Normal to inspection Results Plan - Continue current antihypertensive sp ures, monitor blood pressure. - Advise to seek urgent care or medical evaluation if symptoms worsen. -monitor BPs at home, knows to call me i f sustaining above 140/90 Patient was informed and verbally consented to the use of an ambient scribe for clinic note documentation during this visit. Discussion Notes During this visit, we discussed the patient's current status post-stroke and the importance of maintaining control over his blood pressure to prevent further cerebrovascular events. He is aware of the need for regular monitoring and is instructed to seek urgent care should any concerning symptoms arise. His involvement in speech therapy is noted, and improvements in speech were acknowledged. Follow-up is advised in four months to reassess his blood pressure management and overall recovery post-stroke. Patient Instructions - Continue measuring your blood pressure regularly at home. - Attend all scheduled physical and spee ch therapy sessions. - Seek urgent medical care if you experi ence worsening symptoms such as increased shortness of breath, chest pain, or sudden neurological changes. - Follow up in 4 months for re-evaluatio nAnna [facility] Medical History CVA (cerebral vascular accident) Lumbar back pain Surgical History No pertinent past surgical history Family History Father Smoker Mother No problems noted. Brother No problems noted. Daughter No problems noted. Daughter No problems noted. Maternal Grandfather No problems noted. Maternal Grandmother No problems noted. Paternal Grandfather No problems noted. Paternal Grandmother No problems noted. Sister No problems noted. Sister No problems noted. Social History Household Members: Significant Other Housing: House Do you presently have visiting nurse or other home services: No Alcohol intake: current Alcohol intake frequency: 0-2 drinks per day Alcohol type: wine Patient Tobacco Use Status: Never used Tobacco e-Cigarette/Vaping Use: Never Used service: Yes Current occupational status: retired Cognitive needs: No Hearing needs: No Vision needs: Yes Questionnaire Thrive Questionnaire Date Thrive assessed: 05/27/24 NABEEL-7 AMB Questionnaire NABEEL-7 Date NABEEL - 7 assessed: 05/27/24 Source: Developed by DrsAnna Guy, Maral Marks, Shad Washington and colleagues, with an educational zenobia from [employer]. Physical exam (Primary Care) Vital Signs: Last Vital Signs Temp 98.7 F 06/05/24 14:21 Pulse 83 06/05/24 14:21 Resp 18 06/05/24 14:21 BP 120/64 06/05/24 14:21 Pulse Ox 96 06/05/24 14:21 Oxygen Delivery Method Room Air 06/05/24 14:21 BMI result Body Mass Index 31.2 Tobacco/Smoking Status: Tobacco use Status Tobacco use date assessed 06/05/24 06/05/24 14:29 Patient Tobacco Use Status Never used Tobacco 06/05/24 14:21 e-Cigarette/Vaping Use Never Used 06/05/24 14:21 Thrive Assessment: Date of Thrive Assessment Date Thrive assessed 05/27/24 06/05/24 14:21 Coding Level of Care Code Est Pt Level 3 (75425) Diagnoses CVA (cerebral vascular accident) I63.9 Expressive aphasia R47.01 HTN (hypertension) I10 Assessment & Plan Assessment & Plan (1) CVA (cerebral vascular accident): Code(s): I63.9 - Cerebral infarction, unspecified Category: Medical (2) Expressive aphasia: Code(s): R47.01 - Aphasia Category: Medical (3) HTN (hypertension): Code(s): I10 - Essential (primary) hypertension Category: Medical Plan .
== END 2024-06-05 14:50 | disposition home or self-care (01) ==
PROVIDERS: PCP Nurse Practitioner Family; Visit Provider Nurse Practitioner Family
DX: I63.9 Cerebral infarction, unspecified (principal); R47.01 Aphasia; I10 Essential (primary) hypertension

== ENCOUNTER → 2024-06-05 14:20 | Outpatient (BNVA) | payer MEDICARE, SELFPAY | PROVIDERS: PCP Nurse Practitioner Family; Visit Provider Nurse Practitioner Family | DX: I63.9 Cerebral infarction, unspecified (principal); R74.01 Elevation of levels of liver transaminase levels; I10 Essential (primary) hypertension | CPT/HCPCS: 99212 ==

== ENCOUNTER 2024-09-03 10:56 | Outpatient (AMB) | payer MEDICARE, SELFPAY ==
--- NOTE | 2024-09-03 11:04 | MHC.OFFVIS ---
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 Few months back, he was admitted for but finding difficulties and frustration with speaking. He was diagnosed with stroke. He also has slight troponin leak and treated as NSTEMI. He was kept on IV heparin drip, aspirin/statins. It seems to have recovered from that. He has seen urology was referred him for evaluation of possible atrial fibrillation. He states he does not really have any cardiac symptoms like angina or shortness of breath or palpitations or in fact anything cardiac sounding. He states he is doing okay. [facility] Medical History CVA (cerebral vascular accident) Lumbar back pain Surgical History No pertinent past surgical history Family History Father Smoker Mother No problems noted. Brother No problems noted. Daughter No problems noted. Daughter No problems noted. Maternal Grandfather No problems noted. Maternal Grandmother No problems noted. Paternal Grandfather No problems noted. Paternal Grandmother No problems noted. Sister No problems noted. Sister No problems noted. Social History Household Members: Significant Other Housing: House Do you presently have visiting nurse or other home services: No Alcohol intake: current Alcohol intake frequency: 0-2 drinks per day Alcohol type: wine Patient Tobacco Use Status: Never used Tobacco e-Cigarette/Vaping Use: Never Used service: Yes Current occupational status: retired Cognitive needs: No Hearing needs: No Vision needs: Yes Review of Systems Const Denies chills, Denies fatigue, Denies fever(s), Denies frequent falls, Denies weakness, Denies weight gain and Denies weight loss ENT Denies dizziness Card Denies chest pain, Denies leg edema, Denies lightheadedness, Denies palpitations, Denies dyspnea and Denies dyspnea on exertion Resp Denies cough, Denies dyspnea and Denies dyspnea on exertion GI Denies hematochezia Musc Denies abnormal gait, Denies muscle weakness, Denies numbness, Denies radiating pain into limb and Denies tingling Neuro Denies abnormal gait, Denies dizziness, Denies frequent falls, Denies numbness, Denies tingling and Denies weakness Endo Denies fatigue and Denies palpitations Physical Exam Vital Signs: Last Vital Signs Pulse 71 09/03/24 11:08 BP 130/62 09/03/24 11:08 BMI result Body Mass Index 30.1 Const General: comfortable and no acute distress Orientation/consciousness: patient oriented x3 HEENT Other: Unremarkable Head: Yes normal to inspection Neck Neck: Yes normal visual inspection Chest Chest palpation & inspection: normal inspection of the chest Resp Auscultation: clear to auscultation bilaterally Cardio Palpation: normal PMI Heart sounds: S1 normal heart sound present, S2 normal heart sound present, no gallops, no murmurs and no rubs GI Palpation (GI): Soft to palpation Back/Spine/Pelvis Other: unremarkable Skin General skin exam: no rashes or lesions noted Neuro General: patient oriented x3 Extrem General: Yes normal to inspection Psych Mental Status: mental status grossly normal Assessment & Plan Assessment & Plan (1) CVA (cerebral vascular accident): Code(s): I63.9 - Cerebral infarction, unspecified Category: Medical Plan: Neurology consultation reviewed. Recommendation is to pursue atrial fibrillation evaluation. However, he does have 70% left internal carotid artery stenosis. We discussed about various options for monitoring atrial fibrillation including 30 day event monitor versus implantable loop recorder. After long discussion, they wished to pursue implantable loop recorder. We will arrange the same. (2) NSTEMI (non-ST elevated myocardial infarction): Code(s): I21.4 - Non-ST elevation (NSTEMI) myocardial infarction Category: Medical Plan: Troponin elevation in setting of stroke. Clinically, he does not have angina. Considering his age and comorbidities, recommend conservative care. Per neurologist, he is on aspirin, Plavix. He is also on statins. Recent echocardiogram with LVEF of 60%. (3) Left ventricular hypertrophy: Code(s): I51.7 - Cardiomegaly Category: Medical Plan: Echocardiogram has severe left ventricle hypertrophy with moderate diastolic dysfunction. Likely all related to hypertension. Blood pressure seems stable at this time. (4) Mitral annular calcification: Code(s): I34.81 - Nonrheumatic mitral (valve) annulus calcification Category: Medical Plan: Moderate mitral annular calcification on echocardiogram without any valvular dysfunction. At his age, no specific management. Plan Discussion Notes I discussed with the patient the significance of monitoring for atrial fibrillation, given its potential contribution to stroke, particularly in the elderly. We reviewed the importance of tracking any new cardiovascular symptoms and the rationale for potentially pursuing further cardiac rhythm evaluation. I confirmed the patient's understanding of the need for vigilance and appropriate follow-up. The patient was advised on what symptoms to monitor and the context of further diagnostic testing that may be required subsequently. Consent discussions covered the relative risks and benefits, ensuring the patient is clear on the necessity for ongoing supervision regarding both his neurological and cardiovascular health. Patient was informed and verbally consented to the use of an ambient scribe for clinic note documentation during this visit. Orders: Orders Implantable Loop Rec Implant Today I63.9 - Cerebral infarction, unspecified Patient Instructions: - Pay attention to any new or unusual heart-related symptoms like palpitations. - Follow up with your neurologist, as planned. - Seek help immediately if any new stroke-like symptoms develop. - Continue with your usual activities and medication regimen unless instructed otherwise. - Keep appointments for follow-up care to monitor health conditions. Coding Level of Care Code Est Pt Level 4 (24231) Complex EM visit Add On G2211 Diagnoses CVA (cerebral vascular accident) I63.9 NSTEMI (non-ST elevated myocardial infarction) I21.4 Left ventricular hypertrophy I51.7 Mitral annular calcification I34.81
[2024-09-03 11:08] VITALS: BP 130/62; PULSE 71; BMI 30.1
== END 2024-09-03 11:23 | disposition home or self-care (01) ==
LOC: HO.HCS 10:57
PROVIDERS: PCP Nurse Practitioner Family; Visit Provider Internal Medicine
DX: I63.9 Cerebral infarction, unspecified (principal); I21.4 Non-ST elevation (NSTEMI) myocardial infarction; I51.7 Cardiomegaly; I34.81 Nonrheumatic mitral (valve) annulus calcification
CPT/HCPCS: 99214; G2211

== ENCOUNTER → 2024-09-03 10:56 | Outpatient (BNVA) | payer MEDICARE, SELFPAY | PROVIDERS: PCP Nurse Practitioner Family; Visit Provider Internal Medicine | DX: I21.4 Non-ST elevation (NSTEMI) myocardial infarction (principal); I51.7 Cardiomegaly; I34.81 Nonrheumatic mitral (valve) annulus calcification; Z86.73 Personal history of transient ischemic attack (TIA), and cerebral infarction without residual deficits | CPT/HCPCS: 99212 ==

== ENCOUNTER 2024-09-20 11:58 | Day surgery (SDC) | payer MEDICARE, SELFPAY ==
[2024-09-20 12:59] VITALS: BP 108/55; PULSE 77; RESP 18; O2SAT 97
[2024-09-20 13:12] VITALS: BMI 28.3
--- NOTE | 2024-09-20 14:47 | P.BOP_ITS ---
Brief Operative Note Date of Service: 09/20/24 Pre-op diagnosis: CVA Post-op diagnosis: same Procedure: Placement of implantable loop recorder Implants: After obtaining informed consent patient was brought to the minor surgery room. Patient was laid on the on the table supine. The precordial area was prepped and draped in a sterile fashion. Patient was then administered 2% lidocaine wit h epinephrine intradermally and subcutaneously. A small incision was then made. A [employer] implantable loop recorder LINQ 2 with serial number [id number] was then implanted in the subcutaneous space using modified Seldinger technique. The wound was then closed with Steri-Strips. Pressure dressing was then applied. Measured R-waves from 0.19-0.25 mV Surgeon: Jose Carlos Garcia MD Anesthesia: local Was an Medical Cost Consultant used for this Procedure?: No Estimated blood loss (mL): 2 Pathology: none sent Condition: stable Disposition: same day
== END 2024-09-20 11:59 | disposition home or self-care (01) ==
LOC: HO.SSS 09-23 11:34
PROVIDERS: PCP Nurse Practitioner Family; Visit Provider Internal Medicine Cardiovascular Disease
PROC: (CPT 33285; principal; 2024-09-20 13:30)
DX: I63.9 Cerebral infarction, unspecified (principal)
CPT/HCPCS: 33285; C1764; J2004

== ENCOUNTER → 2024-09-20 11:58 | Outpatient (BNV) | payer MEDICARE, SELFPAY | PROVIDERS: PCP Nurse Practitioner Family; Visit Provider Internal Medicine Cardiovascular Disease | DX: I63.9 Cerebral infarction, unspecified (principal) | CPT/HCPCS: 33285 ==

== ENCOUNTER 2024-10-01 08:14 | Outpatient (AMB) | payer MEDICARE, SELFPAY ==
[2024-10-01 08:17] VITALS: BP 100/52; PULSE 71
--- NOTE | 2024-10-01 08:17 | MHC.OFFVIS ---
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 Meter Installer And Remover: Meter Installer And Remover Present Allergies No Known Allergies [No Known Allergies*] Allergy (Verified 10/01/24 08:20) Medication List - Last Reconciled 10/01/24 by Ailyn Hubbard, PRODUCTION CLERKS SUPERVISOR-C aspirin (Adult Aspirin Regimen) 81 mg PO DAILY atorvastatin 40 mg PO DAILY cholecalciferol (vitamin D3) 25 mcg PO DAILY clopidogrel 75 mg PO DAILY lisinopril 20 mg PO DAILY mecobalamin (vitamin B12) 1,000 mcg PO DAILY HPI HPI 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 He now presents for wound check. Initial discomfort and irritation at the site have resolved. He denies chest pain, palpitations, or significant shortness of breath but notes fatigue-related shortness of breath occasionally. He uses a walker to prevent falls. He describes himself as mostly sedentary. He has not had any recurrent neurological changes. Compliant with meds. is present. [facility] Medical History CVA (cerebral vascular accident) Lumbar back pain Surgical History No pertinent past surgical history Family History Father Smoker Mother No problems noted. Brother No problems noted. Daughter No problems noted. Daughter No problems noted. Maternal Grandfather No problems noted. Maternal Grandmother No problems noted. Paternal Grandfather No problems noted. Paternal Grandmother No problems noted. Sister No problems noted. Sister No problems noted. Social History Household Members: Significant Other Housing: House Do you presently have visiting nurse or other home services: No Alcohol intake: current Alcohol intake frequency: 0-2 drinks per day Alcohol type: wine Patient Tobacco Use Status: Never used Tobacco e-Cigarette/Vaping Use: Never Used service: Yes Current occupational status: retired Cognitive needs: No Hearing needs: No Vision needs: Yes Review of Systems Const All systems reviewed & are unremarkable except as noted in HPI and below ENT Denies dizziness Card Denies chest pain, Denies chest pain at rest, Denies chest pain with activity, Denies rapid heart rate, Denies pedal edema, Denies edema, Denies leg edema, Denies lightheadedness, Denies palpitations, Denies dyspnea, Denies dyspnea on exertion and Denies orthopnea Resp Denies cough, Denies dyspnea and Denies dyspnea on exertion GI Denies hematochezia and Denies change in stool character Musc Reports abnormal gait (in wheelchair at this visit), Denies limited range of motion, Denies muscle cramps, Denies muscle weakness, Denies numbness, Denies radiating pain into limb, Denies stiffness and Denies tingling Neuro Reports abnormal gait (in wheelchair at this visit), Denies dizziness, Denies numbness and Denies tingling Endo Denies palpitations Physical Exam Vital Signs: Last Vital Signs Pulse 71 10/01/24 08:17 BP 100/52 L 10/01/24 08:17 Const General: cooperative, healthy appearing, comfortable and no acute distress Orientation/consciousness: patient oriented x3 Neck Neck: Yes normal visual inspection Chest Other: Dressing and steri strips removed from ILR site. Incision well approximated and no redness, swelling or drainage. Resp Effort & Inspection: normal respiratory effort Auscultation: clear to auscultation bilaterally, no rales, no rhonchi and no wheezes Cardio Rate: regular rate Rhythm: regular rhythm Heart sounds: S1 normal heart sound present, S2 normal heart sound present, no gallops, no murmurs and no rubs Neuro General: patient oriented x3 Extrem General: Yes normal to inspection Psych Appearance: grossly normal Mental Status: mental status grossly normal Speech and movement: Normal speech and movement present Results Reviewed Results Reviewed: Echo 05/14/24 Conclusions: - The left ventricular systolic function is normal. The calculated ejection fraction is 62% by biplane method. - There is severely increased left ventricular wall thickness. - There is moderate mitral annular calcification. EKG 05/13/24 SR with PAVs, left axis, inferior and anterior infarcts, age undetermined, rate 84 Assessment & Plan Assessment & Plan (1) Visit for wound check: Code(s): Z51.89 - Encounter for other specified aftercare Category: Medical Plan: ILR site left chest healing well without noted issues. (2) Implantable loop recorder present: Comment: [employer] ILR 09/20/24 Code(s): Z95.818 - Presence of other cardiac implants and grafts Category: Medical Plan: Recent CVA and ILR placed for [facility] cardiac monitoring and evaluation for presence of atrial fibrillation. Will follow remotely and OV in 6 mo, sooner if needed (3) CVA (cerebral vascular accident): Code(s): I63.9 - Cerebral infarction, unspecified Category: Medical Plan: Neurology note indicates multi infarcts and need to eval for atrial fibrillation. Also has findings of 70% Left ICA stenosis. Currently on aspirin and plavix, atorvastatin. No recurrent neurological events. (4) NSTEMI (non-ST elevated myocardial infarction): Code(s): I21.4 - Non-ST elevation (NSTEMI) myocardial infarction Category: Medical Plan: Troponin elevation to level of NSTEMI at time of CVA. No anginal symptoms. Echo showed EF normal, no regional WMA. He is on aspirin, plavix, atorvastatin. Continue conservative care. s/s angina reviewed with him. (5) Left ventricular hypertrophy: Code(s): I51.7 - Cardiomegaly Category: Medical Plan: Echo shows severe LVH and moderate diastolic dysfunction. Likely related to hypertension. Blood pressure is low normal at this time. Continue lisinopril. (6) Mitral annular calcification: Code(s): I34.81 - Nonrheumatic mitral (valve) annulus calcification Category: Medical Plan: Moderate mitral annular calcification on echocardiogram without any valvular dysfunction. (7) HTN (hypertension): Code(s): I10 - Essential (primary) hypertension Category: Medical Plan: Blood pressure goal less than 130/80. Low normal today. Continue lisinopril. (8) Dyslipidemia: Code(s): E78.5 - Hyperlipidemia, unspecified Category: Medical Plan: LDL goal less than 70. Labs done 05/13/2024 showed LDL 106. He was started on atorvastatin 40 mg daily. He should have repeat fasting lipids drawn, ordered. Plan I discussed the monitoring device's function and the potential need for treatment adjustments based on its findings, particularly regarding atrial fibrillation detection and the associated stroke risk. I emphasized the importance of this rhythm's identification for anticoagulation considerations. Options, risks, and benefits of anticoagulation were outlined, though current reports do not necessitate changes to existing treatment. I clarified how the monitor transmits data wirelessly, ensuring frequent updates. Routine checks revealed no concerns. We agreed on a six-month follow-up period unless new symptoms develop, such as chest pain or syncope, warranting immediate contact. Patient Instructions: - Continue current aspirin and clopidogrel therapy. - Keep monitoring the device in place and report if issues develop. - Report new symptoms: chest pain, breathing trouble, palpitations. - Use the walker consistently for safety. - Attend follow-up in six months or sooner if required. Patient was informed and verbally consented to the use of an ambient scribe for clinic note documentation during this visit. Time spent on chart review, documentation, interview, assessment. Coding Level of Care Code Est Pt Level 4 (59087) Complex EM visit Add On G2211 Diagnoses Visit for wound check Z51.89 Implantable loop recorder present Z95.818 CVA (cerebral vascular accident) I63.9 NSTEMI (non-ST elevated myocardial infarction) I21.4 Left ventricular hypertrophy I51.7 Mitral annular calcification I34.81 HTN (hypertension) I10 Dyslipidemia E78.5 Time Spent (min) 28
== END 2024-10-01 08:40 | disposition home or self-care (01) ==
LOC: HO.HCS 08:15
PROVIDERS: PCP Nurse Practitioner Family; Visit Provider Nurse Practitioner Family
DX: Z51.89 Encounter for other specified aftercare (principal); Z95.818 Presence of other cardiac implants and grafts; I63.9 Cerebral infarction, unspecified; I21.4 Non-ST elevation (NSTEMI) myocardial infarction; I51.7 Cardiomegaly; I34.81 Nonrheumatic mitral (valve) annulus calcification; I10 Essential (primary) hypertension; E78.5 Hyperlipidemia, unspecified
CPT/HCPCS: 99214; G2211

== ENCOUNTER → 2024-10-01 08:14 | Outpatient (BNVA) | payer MEDICARE, SELFPAY | PROVIDERS: PCP Nurse Practitioner Family; Visit Provider Nurse Practitioner Family | DX: I69.323 Fluency disorder following cerebral infarction (principal); I21.4 Non-ST elevation (NSTEMI) myocardial infarction; I51.7 Cardiomegaly; I34.81 Nonrheumatic mitral (valve) annulus calcification; I10 Essential (primary) hypertension; E78.5 Hyperlipidemia, unspecified; Z48.812 Encounter for surgical aftercare following surgery on the circulatory system; Z95.818 Presence of other cardiac implants and grafts | CPT/HCPCS: 99212 ==

== ENCOUNTER 2024-10-01 14:15 | Outpatient (AMB) | payer MEDICARE, SELFPAY ==
[2024-10-01 14:30] VITALS: BP 108/58; PULSE 80; O2SAT 95
--- NOTE | 2024-10-01 14:30 | A.OFFPC_ITS ---
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 Accompanied by: Self / Same As Patient Allergies No Known Allergies [No Known Allergies*] Allergy (Verified 10/01/24 15:12) Medication List - Last Reconciled 10/01/24 by NAILA Ball aspirin (Adult Aspirin Regimen) 81 mg PO DAILY atorvastatin 40 mg PO DAILY cholecalciferol (vitamin D3) 25 mcg PO DAILY clopidogrel 75 mg PO DAILY lisinopril 20 mg PO DAILY mecobalamin (vitamin B12) 1,000 mcg PO DAILY Tobacco use date assessed: 06/05/24 Fall risk assessment: No Falls in past year Last assessed Fall Risk: 10/01/24 Dental Screening Dental Screen Date: 05/27/24 HPI 4m follow up HPI Details Chief Complaint Generalized follow-up for dyslipidemia and hypertension following stroke and NSTEMI History of Present Illness The patient is an 89-year-old male presenting for a generalized follow-up of dys lipidemia and hypertension. He sustained a stroke and an NSTEMI at the start of the year and reports the subsequent onset of bilateral lower extremity weakness. The patient can mobilize with a walker at home but uses a wheelchair today for the clinic visit. Post-stroke, there have been mild speech difficulties, including occasional pausing and stuttering, though communication remains largely effective (previous eval/treatment by Speech Therapy, encouraged to do home exercises). The patient has maintained stability in his blood pressure, experiencing no dizziness even upon positional changes. Cardiologic evaluation has occurred earlier today, and he is equipped with a loop recorder for cardiac oversight. Guidance on gentle hydration adjustments, such as increased water intake, was provided, given his tendency toward low blood pressure. Social History - The patient lives with his , who i s supportive and accompanies him to clinic visits. - The patient uses a walker at home to a ssist with mobility and requires a wheelchair for longer distances. Health Maintenance - Discussion on hydration management wit h emphasis on increased water intake to assist with blood pressure regulation. - Encouragement to maintain routine card iovascular monitoring due to his history of NSTEMI and stroke. Review of Systems - Neurological: Reports weakness in bila teral lower extremities. Reports speech difficulties, including pauses and mild stuttering post-stroke. - Cardiovascular: Denies dizziness upon standing or positional changes. denies any CP or increased SOB - General: Reports doing well overall si nce the past cardiac events. Physical Exam General: Cooperative, healthy appearing, comfortable, no acute distress and well developed, relaxed in a wheelchair Orientation: Patient oriented x3 Limitations: Weakness in bilateral lower extremities (noted upon standing from a seated position); uses a walker at home and a wheelchair today Head: Normal to inspection Ears: Hearing grossly normal bilaterally Nose: Normal external nose present Face and sinus: Normal facial exam Eyes: Appearance normal, both eyes and all related structures Neck: Normal visual inspection and Yes full ROM Respiratory: Normal respiratory effort and able to speak in complete sentences. Clear to auscultation bilaterally Cardiovascular: Regular rate and rhythm. Normal S1 and S2 GI: Normal to inspection. Soft to palpation and nontender Neuro: Speech is slightly impaired with occasional pauses and stuttering post- stroke, but able to communicate effectively Extremities: Weakness noted in bilateral lower extremities; able to stand from sitting position with some difficulty Results Plan The patient?s care focuses on management of dyslipidemia, hypertension, and post-stroke symptoms. Continued cardiovascular monitoring with the loop recorder is important given his history of NSTEMI, while encouraging water intake to manage lower blood pressure. We aim to reassess with lab results soon. Discussion Notes During our discussion, I emphasized the importance of cardiovascular monitoring, recognizing the stability provided by the loop recorder. We discussed hydration strategies to manage his lower blood pressure, specifically increasing water consumption. I also advised scheduling lab work to reassess his current health status and make informed adjustments to his management plan if necessary. The benefits of these steps focus on maintaining cardiovascular health, supporting recovery from his cerebrovascular incident, and preventing potential complications from low blood pressure. Patient Instructions - Continue using the walker at home for mobility and the wheelchair for longer distances. - Increase water intake to help with blo od pressure management. - Attend scheduled lab appointments for health monitoring. - Inform medical sales associate if experi encing new or worsening symptoms. [facility] Medical History CVA (cerebral vascular accident) Lumbar back pain Surgical History (Reviewed 10/01/24 @ 15:[address] [facility] [place]) No pertinent past surgical history Family History Father Smoker Mother No problems noted. Brother No problems noted. Daughter No problems noted. Daughter No problems noted. Maternal Grandfather No problems noted. Maternal Grandmother No problems noted. Paternal Grandfather No problems noted. Paternal Grandmother No problems noted. Sister No problems noted. Sister No problems noted. Social History (Reviewed 10/01/24 @ 15:[address] [facility] [place]) Household Members: Significant Other Housing: House Do you presently have visiting nurse or other home services: No Alcohol intake: current Alcohol intake frequency: 0-2 drinks per day Alcohol type: wine Patient Tobacco Use Status: Never used Tobacco e-Cigarette/Vaping Use: Never Used service: Yes Current occupational status: retired Cognitive needs: No Hearing needs: No Vision needs: Yes Questionnaire Thrive Questionnaire Date Thrive assessed: 05/27/24 NABEEL-7 AMB Questionnaire NABEEL-7 Date NABEEL - 7 assessed: 05/27/24 Source: Developed by Drs. Adam Guy, Maral Marks, Shad Washington and colleagues, with an educational zenobia from [employer]. Physical exam (Primary Care) Vital Signs: Last Vital Signs Pulse 80 10/01/24 14:30 BP 108/58 L 10/01/24 14:30 Pulse Ox 95 10/01/24 14:30 Oxygen Delivery Method Room Air 10/01/24 14:30 Tobacco/Smoking Status: Tobacco use Status Tobacco use date assessed 06/05/24 10/01/24 14:32 Patient Tobacco Use Status Never used Tobacco 10/01/24 14:32 e-Cigarette/Vaping Use Never Used 10/01/24 14:32 Thrive Assessment: Date of Thrive Assessment Date Thrive assessed 05/27/24 10/01/24 14:32 Coding Level of Care Code Est Pt Level 4 (75214) Diagnoses HTN (hypertension) I10 Dyslipidemia E78.5 CVA (cerebral vascular accident) I63.9 NSTEMI (non-ST elevated myocardial infarction) I21.4 Expressive aphasia R47.01 Assessment & Plan Assessment & Plan (1) HTN (hypertension): Code(s): I10 - Essential (primary) hypertension Category: Medical (2) Dyslipidemia: Code(s): E78.5 - Hyperlipidemia, unspecified Category: Medical (3) CVA (cerebral vascular accident): Code(s): I63.9 - Cerebral infarction, unspecified Category: Medical (4) NSTEMI (non-ST elevated myocardial infarction): Code(s): I21.4 - Non-ST elevation (NSTEMI) myocardial infarction Category: Medical (5) Expressive aphasia: Code(s): R47.01 - Aphasia Category: Medical Plan . Orders: Orders TSH reflex Free T4 Today E78.5 - Hyperlipidemia, unspecified, I10 - Essential (primary) hypertension UA CC w/rflx Micro + Cult Today E78.5 - Hyperlipidemia, unspecified, I10 - Essential (primary) hypertension Complete Blood Count Auto Diff Today E78.5 - Hyperlipidemia, unspecified, I10 - Essential (primary) hypertension Comprehensive Dickens. Panel Fast Today E78.5 - Hyperlipidemia, unspecified, I10 - Essential (primary) hypertension Lipid Panel Today E78.5 - Hyperlipidemia, unspecified, I10 - Essential (primary) hypertension
== END 2024-10-01 15:09 | disposition home or self-care (01) ==
LOC: HO.HMCC 14:16
PROVIDERS: PCP Nurse Practitioner Family; Visit Provider Nurse Practitioner Family
DX: I10 Essential (primary) hypertension (principal); E78.5 Hyperlipidemia, unspecified; I63.9 Cerebral infarction, unspecified; I25.2 Old myocardial infarction; R47.01 Aphasia

== ENCOUNTER → 2024-10-22 23:59 | Outpatient (BNV) | payer MEDICARE, SELFPAY ==
--- NOTE | 2024-10-27 09:16 | A.OFFVIS_ITS ---
Intake Visit Reasons: Remote ICD check- Medtr[employer] Allergies No Known Allergies (No Known Allergies*) Allergy (Verified 10/01/24 15:12) COUNTS INCLUDE 234 BEDS AT THE [facility] Medical History CVA (cerebral vascular accident) Lumbar back pain Surgical History No pertinent past surgical history Family History Father Smoker Mother No problems noted. Brother No problems noted. Daughter No problems noted. Daughter No problems noted. Maternal Grandfather No problems noted. Maternal Grandmother No problems noted. Paternal Grandfather No problems noted. Paternal Grandmother No problems noted. Sister No problems noted. Sister No problems noted. Social History Household Members: Significant Other Housing: House Do you presently have visiting nurse or other home services: No Alcohol intake: current Alcohol intake frequency: 0-2 drinks per day Alcohol type: wine Patient Tobacco Use Status: Never used Tobacco e-Cigarette/Vaping Use: Never Used service: Yes Current occupational status: retired Cognitive needs: No Hearing needs: No Vision needs: Yes Office Procedures Cardiac Device Check Cardiac Device Check Details: Date of service 10/22/2024; in the current monitoring period, there is no evidence of atrial fibrillation. [id number] Cardiac Interrogation, subcut cardiac rhythm monitor Procedure code (CPT) selection complete Assessment & Plan Assessment & Plan (1) Implantable loop recorder present: Comment: Medtronic ILR 09/20/24 Code(s): Z95.818 - Presence of other cardiac implants and grafts Category: Medical (2) CVA (cerebral vascular accident): Code(s): I63.9 - Cerebral infarction, unspecified Category: Medical Plan x Coding Level of Care Code Procedure Only Diagnoses Implantable loop recorder present Z95.818 CVA (cerebral vascular accident) I63.9 CPT Codes Cardiac Device Check - Cardiac Device 16: [id number] Cardiac Interrogation, subcut cardiac rhythm monitor ([id number])
== END ==
PROVIDERS: PCP Nurse Practitioner Family; Visit Provider Internal Medicine
DX: I63.9 Cerebral infarction, unspecified (principal); Z95.818 Presence of other cardiac implants and grafts
CPT/HCPCS: 93298

== ENCOUNTER 2024-11-01 10:20 | Outpatient (REF) | payer MEDICARE, SELFPAY ==
[2024-11-01 14:02] LABS: Prostate Specific Antigen 13.63 ng/mL (<0.05-4.0)
== END 2024-11-01 10:21 | disposition home or self-care (01) ==
LOC: HO.HMGCLDS 10:20
PROVIDERS: Urology; PCP Nurse Practitioner Family; Visit Provider Nurse Practitioner Family
DX: Z12.5 Encounter for screening for malignant neoplasm of prostate (principal)
CPT/HCPCS: 36415; 84153

== ENCOUNTER 2024-11-05 13:15 | Outpatient (AMB) | payer MEDICARE, SELFPAY ==
--- NOTE | 2024-11-05 13:15 | A.OFFVIS_ITS ---
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 He is a patient of Dr. Lutz. He is seen for following urologic conditions - prostate cancer - osteopenia Substantial PSA rise Has been 3 years since GNRH treatment We will restart Obtain prostate MRI and PET-CT Osteopenia - Verified that has prescriptions for calcium and vitamin D PSA 08/29 5.7, 10/30 13.7 Prostate cancer: High-grade [place] 9 - February 2019 Management with intermittent hormone therapy Last GnRH 11/26 - 07/08 Prostate cancer was diagnosed 02/23 Dr Boss. Diagnosis was reached by needle biopsy, for elevated PSA, PSA at diagnosis 21 The [place] grade is February 2019 3 x , 4+4 = 8 2 x, 4+5 = 9 PNI +, LVI -. TNM Classification of Malignant Tumours (TNM) T2b. The [place] (NCCN) risk category is High Risk (PSA > 20, Gl 8+, T3). Initial therapy included 02/23 GnRH (45mg), finasteride. Recent labs included 05/27 0.8 T 6 10/25 PSA 0.3 T 8, 04/26 PSA 1.0 T 249 - 07/26 PSA 3.2, 11/25 7.6, 02/25 0.7, 05/29 0.4 T 13, 10/27 0.3 10, 05/30 0.3 T 10, 11/27 0.7 T 22 Recent imaging included 02/23 a DEXA scan, normal 03/26 Bone scan - degenerative 03/26 , a CT (computed tomography) scan - NAD - 07/27 bone density osteopenic [facility] Medical History CVA (cerebral vascular accident) Lumbar back pain Surgical History No pertinent past surgical history Family History Father Smoker Mother No problems noted. Brother No problems noted. Daughter No problems noted. Daughter No problems noted. Maternal Grandfather No problems noted. Maternal Grandmother No problems noted. Paternal Grandfather No problems noted. Paternal Grandmother No problems noted. Sister No problems noted. Sister No problems noted. Social History Household Members: Significant Other Housing: House Do you presently have visiting nurse or other home services: No Alcohol intake: current Alcohol intake frequency: 0-2 drinks per day Alcohol type: wine Patient Tobacco Use Status: Never used Tobacco e-Cigarette/Vaping Use: Never Used service: Yes Current occupational status: retired Cognitive needs: No Hearing needs: No Vision needs: Yes Assessment & Plan Assessment & Plan (1) Prostate cancer: Comment: High-grade prostate cancer 2019 intermittent hormone therapy - Last GnRH 11/26 Code(s): C61 - Malignant neoplasm of prostate Category: Medical Plan Imaging Orders: Orders PET CT fusion skull to thigh Today C61 - Malignant neoplasm of prostate MR Prostate wo/w con Today C61 - Malignant neoplasm of prostate Patient Instructions: This note is constructed using voice recognition software. While every effort has been made to ensure accuracy portfolio mgr errors may have been included. Imaging studies, laboratory and physical exam results were discussed and reviewed in detail. No major barriers to patient understanding were identified. An opportunity to ask questions regarding the treatment plan was provided. All questions were answered. The patient expressed understanding and agreement with the above treatment plan. The patient is aware they should contact our office by phone for worsening of their current condition or the appearance of new urologic symptoms. Compliance is encouraged with any medications and followup testing that is ordered. It is a privilege to participate in the urologic care of your patient. If you have any questions or concerns regarding treatment for the above conditions, or other urologic issues, please do not hesitate to contact me. The office telephone contact is [phone]. Sincerely, Dr Gato Boss MD, [facility] - Urology Compassionate Specialist Care for the Genitourinary System Coding Level of Care Code Est Pt Level 4 (21995) Diagnoses Prostate cancer C61
== END 2024-11-05 13:56 | disposition home or self-care (01) ==
LOC: HO.HUSH 13:15
PROVIDERS: PCP Nurse Practitioner Family; Visit Provider Urology
DX: C61 Malignant neoplasm of prostate (principal)
CPT/HCPCS: 99214

== ENCOUNTER → 2024-11-05 13:15 | Outpatient (BNVA) | payer MEDICARE, SELFPAY | PROVIDERS: PCP Nurse Practitioner Family; Visit Provider Urology | DX: C61 Malignant neoplasm of prostate (principal) | CPT/HCPCS: 99212 ==

== ENCOUNTER → 2024-11-07 15:00 | Outpatient (BNV) | payer MEDICARE, SELFPAY | PROVIDERS: PCP Nurse Practitioner Family; Visit Provider Radiology Diagnostic Radiology | DX: C61 Malignant neoplasm of prostate (principal) | CPT/HCPCS: 72197 ==

== ENCOUNTER 2024-11-07 15:05 | Outpatient (REF) | payer MEDICARE, SELFPAY ==
--- NOTE | ~2024-11-07 | MR_ITS ---
EXAMINATION: MR PROSTATE WITHOUT THEN WITH IV CONTRAST HISTORY: C61 - Malignant neoplasm of prostate TECHNIQUE: 1.5T body coil survey of the pelvis was performed. Phase array coil imaging of the prostate was performed in multiplanar high resolution axial, coronal, sagittal fast spin echo T2 and axial T1 weighted imaging sequences. Axial diffusion imaging at intermediate and high field performed with ADC mapping. Next, 7 mL Gadavist was given by intravenous infusion, and dynamic axial imaging performed. COMPARISON: There are no prior studies available for comparison. CLINICAL DATA: Most recent PSA: 13.63 ng/mL on 11/01/2024. PSA Density: 0.35 ng/mL squared Prostate Biopsy: Positive biopsy 02/2019 with a [place] score 4+5 = 9. FINDINGS: Prostate size: 4.4 x 4.8 x 3.5 cm. Calculated prostate volume is 38.4 mL. Hemorrhage: None. Transitional Zone: There is mild heterogeneous nodular hypertrophy of the transitional zone. Peripheral Zone: There are multiple areas of interest in the peripheral gland as described below: Area of interest #1: Location: Right lateral peripheral zone at the base extending from the mid gland measuring 2.1 x 1.4 x 1.4 cm (series 7, images 11-14): DWI PI-RADS v2.1 score: 5 T2 PI-RADS v2.1 score: 5 DCE PI-RADS v2.1 score: + Overall PI-RADS v2.1 score: 5 Capsular contact: yes Extracapsular extension: None Seminal vesicle invasion: None Neurovascular bundle involvement: None Area of interest #2: Location: Right peripheral zone in the mid gland extending to the apex measuring 2.2 x 1.2 x 1.9 cm (series 7, images 15-21): DWI PI-RADS v2.1 score: 5 T2 PI-RADS v2.1 score: 5 DCE PI-RADS v2.1 score: + Overall PI-RADS v2.1 score: 5 Capsular contact: yes Extracapsular extension: There is mild spiculation of the periprosthetic fat adjacent to the lesion which may represent extracapsular extension. Seminal vesicle invasion: None Neurovascular bundle involvement: No definite Area of interest #3: Location: Left posterolateral peripheral zone in the mid gland measuring 0.8 cm (series 9, image 16): DWI PI-RADS v2.1 score: 4 T2 PI-RADS v2.1 score: 4 DCE PI-RADS v2.1 score: - Overall PI-RADS v2.1 score: 4 Capsular contact: yes Extracapsular extension: None Seminal vesicle invasion: None Neurovascular bundle involvement: None Seminal Vesicles/Ejaculatory Ducts: Symmetric and normal in signal and caliber. Pelvic Lymph Nodes: No obturator or internal iliac lymph nodes meeting size criteria for adenopathy. Marrow Signal: Normal marrow signal and enhancement without focal lesion identified. MR/MR Prostate wo/w con IMPRESSION: Multiple areas of interest in the prostate as described, highly suspicious for clinically significant prostate carcinoma. PI-RADS 5: Very high (clinically significant cancer is highly likely to be present) PI-RADS Assessment Categories PI-RADS 1: Very low (clinically significant cancer is highly unlikely to be present) PI-RADS 2: Low (clinically significant cancer is unlikely to be present) PI-RADS 3: Intermediate (the presence of clinically significant cancer is equivocal) PI-RADS 4: High (clinically significant cancer is likely to be present) PI-RADS 5: Very high (clinically significant cancer is highly likely to be present) [employer]. MR Prostate Imaging Reporting and Data System version 2.1. [email or web address] Electronically signed by: Adam Arreola MD 11/11/2024 07:19 AM EDT
== END 2024-11-07 15:06 | disposition home or self-care (01) ==
LOC: HO.MRI 15:05
PROVIDERS: PCP Nurse Practitioner Family; Visit Provider Urology
DX: C61 Malignant neoplasm of prostate (principal)
CPT/HCPCS: 72197; A9585

== ENCOUNTER → 2024-11-21 23:59 | Outpatient (BNV) | payer MEDICARE, SELFPAY ==
--- NOTE | 2024-11-28 12:51 | A.OFFVIS_ITS ---
Intake Visit Reasons: Remote ICD check- [employer]tr[employer] Allergies No Known Allergies (No Known Allergies*) Allergy (Verified 11/05/24 13:16) [facility] Medical History (Updated 11/18/24 @ 09:16 by Mike Jennings MA) Spinal stenosis Carotid stenosis, left Multiple cerebral infarctions Prostate cancer Arthritis HTN (hypertension) Peripheral neuropathy Multifactorial gait disorder CVA (cerebral vascular accident) Lumbar back pain Surgical History No pertinent past surgical history Family History Father Smoker Mother No problems noted. Brother No problems noted. Daughter No problems noted. Daughter No problems noted. Maternal Grandfather No problems noted. Maternal Grandmother No problems noted. Paternal Grandfather No problems noted. Paternal Grandmother No problems noted. Sister No problems noted. Sister No problems noted. Social History Household Members: Significant Other Housing: House Do you presently have visiting nurse or other home services: No Alcohol intake: current Alcohol intake frequency: 0-2 drinks per day Alcohol type: wine Patient Tobacco Use Status: Never used Tobacco e-Cigarette/Vaping Use: Never Used service: Yes Current occupational status: retired Cognitive needs: No Hearing needs: No Vision needs: Yes Office Procedures Cardiac Device Check Cardiac Device Check Details: Date of service 11/21/2024; in the current monitoring period, there is no evidence of atrial fibrillation. PVCs present 0.1%. [id number] Cardiac Interrogation, subcut cardiac rhythm monitor Procedure code (CPT) selection complete Assessment & Plan Assessment & Plan (1) Implantable loop recorder present: Comment: [employer] ILR 09/20/24 Code(s): Z95.818 - Presence of other cardiac implants and grafts Category: Medical (2) CVA (cerebral vascular accident): Code(s): I63.9 - Cerebral infarction, unspecified Category: Medical Plan x Coding Level of Care Code Procedure Only Diagnoses Implantable loop recorder present Z95.818 CVA (cerebral vascular accident) I63.9 CPT Codes Cardiac Device Check - Cardiac Device 16: [id number] Cardiac Interrogation, subcut cardiac rhythm monitor ([id number])
== END ==
PROVIDERS: PCP Nurse Practitioner Family; Visit Provider Internal Medicine
DX: I63.9 Cerebral infarction, unspecified (principal); Z95.818 Presence of other cardiac implants and grafts
CPT/HCPCS: 93298

== ENCOUNTER 2024-12-03 13:02 | Outpatient (AMB) | payer MEDICARE, SELFPAY ==
--- NOTE | 2024-12-03 13:04 | A.OFFVIS_ITS ---
Intake Visit Reasons: GnRH/review MRI/PSMA Intake Note: Pt presents to the office today for a follow up GnRH PSA 11/01/24:13.63 Urology meds : none Blood thinners : none Antique Collector Required: No Accompanied by: Self / Same As Patient Allergies No Known Allergies (No Known Allergies*) Allergy (Verified 12/03/24 13:05) HPI Comments Details: Steve is a pleasant male. He is a patient of Dr. Lutz. He is seen for following urologic conditions - prostate cancer - osteopenia Here for Yamilet restart MRI findings suggest cancer isolated to prostate Osteopenia - Verified that has prescriptions for calcium and vitamin D - add alendronate PSA 08/29 5.7, 10/30 13.7 Prostate cancer: High-grade Leesa 9 - February 2019 Management with intermittent hormone therapy Last GnRH 11/26 - 07/08 Prostate cancer was diagnosed 02/23 Dr Boss. Diagnosis was reached by needle biopsy, for elevated PSA, PSA at diagnosis 21 The Leesa grade is February 2019 3 x , 4+4 = 8 2 x, 4+5 = 9 PNI +, LVI -. TNM Classification of Malignant Tumours (TNM) T2b. The D'Belinda (NCCN) risk category is High Risk (PSA > 20, Gl 8+, T3). Initial therapy included 02/23 GnRH (45mg), finasteride. Recent labs included 05/27 0.8 T 6 10/25 PSA 0.3 T 8, 04/26 PSA 1.0 T 249 - 07/26 PSA 3.2, 11/25 7.6, 02/25 0.7, 05/29 0.4 T 13, 10/27 0.3 10, 05/30 0.3 T 10, 11/27 0.7 T 22 Recent imaging included 02/23 a DEXA scan, normal 03/26 Bone scan - degenerative 03/26 , a CT (computed tomography) scan - NAD - 07/27 bone density osteopenic Prostate MRI - 11/29 40 g prostate: Multiple PI-RADS 4 lesions, negative marrow, negative nodes PFSH Medical History (Updated 11/18/24 @ 09:16 by Mike Jennings [facility]) Spinal stenosis Carotid stenosis, left Multiple cerebral infarctions Prostate cancer Arthritis HTN (hypertension) Peripheral neuropathy Multifactorial gait disorder CVA (cerebral vascular accident) Lumbar back pain Surgical History (Reviewed 10/01/24 @ 15:12 by [facility]) No pertinent past surgical history Family History Father Smoker Mother No problems noted. Brother No problems noted. Daughter No problems noted. Daughter No problems noted. Maternal Grandfather No problems noted. Maternal Grandmother No problems noted. Paternal Grandfather No problems noted. Paternal Grandmother No problems noted. Sister No problems noted. Sister No problems noted. Social History Household Members: Significant Other Housing: House Do you presently have visiting nurse or other home services: No Alcohol intake: current Alcohol intake frequency: 0-2 drinks per day Alcohol type: wine Patient Tobacco Use Status: Never used Tobacco e-Cigarette/Vaping Use: Never Used service: Yes Current occupational status: retired Cognitive needs: No Hearing needs: No Vision needs: Yes Review of Systems Const Denies chills and Denies fever(s) Card Reports no additional complaints and Denies syncope Resp Denies cough GI Denies abdominal pain and Denies heartburn Reports as per HPI and Denies change in libido Neuro Denies syncope Psych Denies change in libido Endo Denies change in libido Physical Exam Const General: cooperative, healthy appearing, comfortable and no acute distress Orientation/consciousness: patient oriented x3 HEENT Face and sinus: Yes normal facial exam Mouth: moist mucous membranes Neck Neck: Yes normal visual inspection, Yes full ROM and Yes trachea midline Chest Chest palpation & inspection: normal inspection of the chest Resp Effort & Inspection: normal respiratory effort, able to speak in complete sentences and no respiratory distress GI Inspection: Yes normal to inspection Back/Spine/Pelvis Cervical Spine: normal cervical lordosis Thoracic/Lumbar Spine: thoracic and lumbar spine normal to inspection Skin General skin exam: no rashes or lesions noted Neuro General: patient oriented x3, gait normal, tone normal and moves all extremities Extrem General: Yes normal to inspection and Yes capillary refill normal Office Meds Eligard (6 month) 45 mg (6 month) subcutaneous syringe Performing Provider: Gato Boss MD Performing Location[facility] [place] [facility] Administered by: Leah Mohan RN on 12/03/24 13:43 Dose Route Admin Location Dispensed Lot Number Expiration Date NDC [employer] Rep 45 mg subcut Right upper arm 45 mg [id number] 01/25/26 79292-688-01 T [employer] Total Dispensed Waste 45 mg 0 % Assessment & Plan Assessment & Plan (1) Prostate cancer: Comment: High-grade prostate cancer 2019 intermittent hormone therapy - Last GnRH 11/26 Code(s): C61 - Malignant neoplasm of prostate Category: Medical Plan Three-month follow-up lab work tele Orders: Orders AMB Leuprolide Injection - Practice Supplied Today C61 - Malignant neoplasm of prostate Testosterone, Total 3 Months C61 - Malignant neoplasm of prostate Prostate Specific Antigen 3 Months C61 - Malignant neoplasm of prostate Medications: New alendronate 70 mg PO QWEEK 13 tabs 3RF 90 days M81.8 - Other osteoporosis without current pathological fracture, M85.80 - Other specified disorders of bone density and structure, unspecified site, T38.7X5A - Adverse effect of androgens and anabolic congeners, initial encounter Patient Instructions: This note is constructed using voice recognition software. While every effort has been made to ensure accuracy warehouse specialist errors may have been included. Imaging studies, laboratory and physical exam results were discussed and reviewed in detail. No major barriers to patient understanding were identified. An opportunity to ask questions regarding the treatment plan was provided. All questions were answered. The patient expressed understanding and agreement with the above treatment plan. The patient is aware they should contact our office by phone for worsening of their current condition or the appearance of new urologic symptoms. Compliance is encouraged with any medications and followup testing that is ordered. It is a privilege to participate in the urologic care of your patient. If you have any questions or concerns regarding treatment for the above conditions, or other urologic issues, please do not hesitate to contact me. The office telephone contact is [phone]. Sincerely, Dr Gato Boss MD, [facility] - Urology Compassionate Specialist Care for the Genitourinary System Coding Level of Care Code Est Pt Level 3 (07697) Complex EM visit Add On G2211 Diagnoses Prostate cancer C61
== END 2024-12-03 13:58 | disposition home or self-care (01) ==
PROVIDERS: PCP Nurse Practitioner Family; Visit Provider Urology
DX: C61 Malignant neoplasm of prostate (principal)
CPT/HCPCS: 99213; G2211

== ENCOUNTER → 2024-12-03 13:02 | Outpatient (BNVA) | payer MEDICARE, SELFPAY | PROVIDERS: PCP Nurse Practitioner Family; Visit Provider Urology | DX: C61 Malignant neoplasm of prostate (principal); M48.00 Spinal stenosis, site unspecified; I10 Essential (primary) hypertension; G62.9 Polyneuropathy, unspecified; Z86.73 Personal history of transient ischemic attack (TIA), and cerebral infarction without residual deficits | CPT/HCPCS: 96402; 99212; J9217 ==

== ENCOUNTER → 2024-12-21 23:59 | Outpatient (BNV) | payer MEDICARE, SELFPAY ==
--- NOTE | 2025-01-05 13:24 | MHC.OFFVIS ---
Intake Visit Reasons: Remote ILR check- [employer] Allergies No Known Allergies (No Known Allergies*) Allergy (Verified 12/03/24 13:05) [facility] Medical History (Updated 11/18/24 @ 09:16 by Mike Jennings [facility]) Spinal stenosis Carotid stenosis, left Multiple cerebral infarctions Prostate cancer Arthritis HTN (hypertension) Peripheral neuropathy Multifactorial gait disorder CVA (cerebral vascular accident) Lumbar back pain Surgical History No pertinent past surgical history Family History Father Smoker Mother No problems noted. Brother No problems noted. Daughter No problems noted. Daughter No problems noted. Maternal Grandfather No problems noted. Maternal Grandmother No problems noted. Paternal Grandfather No problems noted. Paternal Grandmother No problems noted. Sister No problems noted. Sister No problems noted. Social History Household Members: Significant Other Housing: House Do you presently have visiting nurse or other home services: No Alcohol intake: current Alcohol intake frequency: 0-2 drinks per day Alcohol type: wine Patient Tobacco Use Status: Never used Tobacco e-Cigarette/Vaping Use: Never Used service: Yes Current occupational status: retired Cognitive needs: No Hearing needs: No Vision needs: Yes Office Procedures Cardiac Device Check Cardiac Device Check Details: Date of service 12/21/2024; in the current monitoring period, there is no evidence of atrial fibrillation. PVC burden 0.4%. [id number] Cardiac Interrogation, subcut cardiac rhythm monitor Procedure code (CPT) selection complete Assessment & Plan Assessment & Plan (1) Implantable loop recorder present: Comment: [employer] ILR 09/20/24 Code(s): Z95.818 - Presence of other cardiac implants and grafts Category: Medical (2) CVA (cerebral vascular accident): Code(s): I63.9 - Cerebral infarction, unspecified Category: Medical Plan x Coding Level of Care Code Procedure Only Diagnoses Implantable loop recorder present Z95.818 CVA (cerebral vascular accident) I63.9 CPT Codes Cardiac Device Check - Cardiac Device 16: [id number] Cardiac Interrogation, subcut cardiac rhythm monitor ([id number])
== END ==
PROVIDERS: PCP Nurse Practitioner Family; Visit Provider Internal Medicine
DX: I63.9 Cerebral infarction, unspecified (principal); Z95.818 Presence of other cardiac implants and grafts
CPT/HCPCS: 93298

== ENCOUNTER → 2025-01-20 23:59 | Outpatient (BNV) | payer MEDICARE, SELFPAY ==
--- NOTE | 2025-01-27 19:17 | MHC.OFFVIS ---
Intake Visit Reasons: Remote ILR Check ([employer]) Allergies No Known Allergies (No Known Allergies*) Allergy (Verified 12/03/24 13:05) [facility] Medical History (Updated 11/18/24 @ 09:16 by Mike Jennings [facility]) Spinal stenosis Carotid stenosis, left Multiple cerebral infarctions Prostate cancer Arthritis HTN (hypertension) Peripheral neuropathy Multifactorial gait disorder CVA (cerebral vascular accident) Lumbar back pain Surgical History No pertinent past surgical history Family History Father Smoker Mother No problems noted. Brother No problems noted. Daughter No problems noted. Daughter No problems noted. Maternal Grandfather No problems noted. Maternal Grandmother No problems noted. Paternal Grandfather No problems noted. Paternal Grandmother No problems noted. Sister No problems noted. Sister No problems noted. Social History Household Members: Significant Other Housing: House Do you presently have visiting nurse or other home services: No Alcohol intake: current Alcohol intake frequency: 0-2 drinks per day Alcohol type: wine Patient Tobacco Use Status: Never used Tobacco e-Cigarette/Vaping Use: Never Used service: Yes Current occupational status: retired Cognitive needs: No Hearing needs: No Vision needs: Yes Office Procedures Cardiac Device Check Cardiac Device Check Details: Date of service ; in the current monitoring period, there is no evidence of atrial fibrillation. PVC burden 0.2%. [id number] Cardiac Interrogation, subcut cardiac rhythm monitor Procedure code (CPT) selection complete Assessment & Plan Assessment & Plan (1) Implantable loop recorder present: Comment: [employer] ILR 09/20/24 Code(s): Z95.818 - Presence of other cardiac implants and grafts Category: Medical (2) CVA (cerebral vascular accident): Code(s): I63.9 - Cerebral infarction, unspecified Category: Medical Plan x Coding Level of Care Code Procedure Only Diagnoses Implantable loop recorder present Z95.818 CVA (cerebral vascular accident) I63.9 CPT Codes Cardiac Device Check - Cardiac Device 16: [id number] Cardiac Interrogation, subcut cardiac rhythm monitor ([id number])
== END ==
PROVIDERS: PCP Nurse Practitioner Family; Visit Provider Internal Medicine
DX: I63.9 Cerebral infarction, unspecified (principal); Z95.818 Presence of other cardiac implants and grafts
CPT/HCPCS: 93298

== ENCOUNTER → 2025-02-19 23:59 | Outpatient (BNV) | payer MEDICARE, SELFPAY ==
--- NOTE | 2025-02-25 16:02 | MHC.OFFVIS ---
Intake Visit Reasons: Remote ILR Check ([employer]) Allergies No Known Allergies (No Known Allergies*) Allergy (Verified 12/03/24 13:05) [facility] Medical History (Updated 11/18/24 @ 09:16 by Mike Jennings [facility]) Spinal stenosis Carotid stenosis, left Multiple cerebral infarctions Prostate cancer Arthritis HTN (hypertension) Peripheral neuropathy Multifactorial gait disorder CVA (cerebral vascular accident) Lumbar back pain Surgical History No pertinent past surgical history Family History Father Smoker Mother No problems noted. Brother No problems noted. Daughter No problems noted. Daughter No problems noted. Maternal Grandfather No problems noted. Maternal Grandmother No problems noted. Paternal Grandfather No problems noted. Paternal Grandmother No problems noted. Sister No problems noted. Sister No problems noted. Social History Household Members: Significant Other Housing: House Do you presently have visiting nurse or other home services: No Alcohol intake: current Alcohol intake frequency: 0-2 drinks per day Alcohol type: wine Patient Tobacco Use Status: Never used Tobacco e-Cigarette/Vaping Use: Never Used service: Yes Current occupational status: retired Cognitive needs: No Hearing needs: No Vision needs: Yes Office Procedures Cardiac Device Check Cardiac Device Check Details: Date of service 02/19/2025; in the current monitoring period, there is atrial fibrillation recorded for 0.3%. For episodes; longest one hour 22 minutes. Max ventricular rate 85/Min. Not clear if it is truly atrial fibrillation or sinus with PACs/artifact. To be verified. [id number] Cardiac Interrogation, subcut cardiac rhythm monitor Procedure code (CPT) selection complete Assessment & Plan Assessment & Plan (1) Implantable loop recorder present: Comment: [employer] ILR 09/20/24 Code(s): Z95.818 - Presence of other cardiac implants and grafts Category: Medical (2) CVA (cerebral vascular accident): Code(s): I63.9 - Cerebral infarction, unspecified Category: Medical Plan x Coding Level of Care Code Procedure Only Diagnoses Implantable loop recorder present Z95.818 CVA (cerebral vascular accident) I63.9 CPT Codes Cardiac Device Check - Cardiac Device 16: [id number] Cardiac Interrogation, subcut cardiac rhythm monitor ([id number])
== END ==
PROVIDERS: PCP Nurse Practitioner Family; Visit Provider Internal Medicine
DX: I63.9 Cerebral infarction, unspecified (principal); Z95.818 Presence of other cardiac implants and grafts
CPT/HCPCS: 93298

== ENCOUNTER 2025-02-20 10:29 | Outpatient (REF) | payer MEDICARE, SELFPAY ==
[2025-02-20 14:19] LABS: Prostate Specific Antigen 4.27 ng/mL (<0.05-4.0)
== END 2025-02-20 10:30 | disposition home or self-care (01) ==
LOC: HO.HMGCLDS 10:29
PROVIDERS: PCP Nurse Practitioner Family; Visit Provider Urology
DX: C61 Malignant neoplasm of prostate (principal); Z12.5 Encounter for screening for malignant neoplasm of prostate
CPT/HCPCS: 36415; 84153; 84403

== ENCOUNTER 2025-02-28 14:08 | Outpatient (REF) | payer MEDICARE, SELFPAY ==
[2025-02-28 15:41] LABS: MANUAL DIFF FLAG NO
[2025-02-28 15:58] LABS: Hematocrit 29.0 % (42.0-52.0); Hemoglobin 9.3 g/dl (14.0-18.0); Imm Gran Abs Auto 0.02 X10*3/uL (0.00-0.03); Imm Gran Pct Auto 0.4 % (0.0-0.4); Lymphocytes Absolute Auto 0.6 X10*3/uL (1.2-4.9); Mean Corpuscular HGB Conc 32.1 g/dl (31.0-36.0); Mean Corpuscular Hemoglobin 31.8 pg (27.0-33.0); Mean Corpuscular Volume 99.3 fL (80.0-98.0); NRBC Abs Auto 0.000 X10*3/uL (0.0-0.012); NRBC Pct Auto 0.0 /100WBC (0.0-0.2); Platelet Count 190 X10*3/uL (160-400); Red Blood Count 2.92 X10*6/uL (4.60-5.80); White Blood Count 5.7 X10*3/uL (4.8-10.8)
[2025-02-28 16:27] LABS: Alanine Aminotransferase 17 U/L (0-40); Albumin Level 4.3 g/dL (3.5-5.0); Alkaline Phosphatase 67 U/L (39-117); Anion Gap 13 (12-20); Aspartate Amino Transferase 27 U/L (5-37); Blood Urea Nitrogen 17 mg/dL (9-16); Calcium 9.0 mg/dL (8.4-10.2); Carbon Dioxide 24 mmol/L (22-29); Chloride 107 mmol/L (96-108); Cholesterol 110 mg/dL (<200); Estimated Glomerular Filt Rate > 60; HDL Cholesterol 47 mg/dL (>40); Magnesium 2.1 mg/dL (1.6-2.6); Potassium 4.7 mmol/L (3.3-5.1); Sodium 139 mmol/L (135-145); Total Protein 6.7 g/dL (6.5-8.0); Triglycerides 59 mg/dL (<150)
== END 2025-02-28 14:09 | disposition home or self-care (01) ==
LOC: HO.LAB 14:08
PROVIDERS: Absent Provider Nurse Practitioner Family; PCP Nurse Practitioner Family; Visit Provider Nurse Practitioner Family
DX: I21.4 Non-ST elevation (NSTEMI) myocardial infarction (principal); I63.9 Cerebral infarction, unspecified; I10 Essential (primary) hypertension; E78.5 Hyperlipidemia, unspecified; R47.01 Aphasia
CPT/HCPCS: 36415; 80053; 80061; 83735; 84443; 85025

== ENCOUNTER 2025-04-01 09:47 | Outpatient (AMB) | payer MEDICARE, SELFPAY ==
--- NOTE | 2025-04-01 09:50 | MHC.OFFVIS ---
Vital Signs 04/01/25 09:53 Height 5 ft 1 in BMI Reason not done Patient refused/unable BP 130/60 Blood Pressure Location Lt brachial Position Sitting Pulse 82 Pulse Source Pulse Oximeter Intake Visit Reasons: 6 mth f/up Admitted Attorneys Required: No Accompanied by: Self / Same As Patient Allergies No Known Allergies (No Known Allergies*) Allergy (Verified 12/03/24 13:05) Medication List - Last Reconciled 04/01/25 by London Dawson MD alendronate 70 mg PO QWEEK 90 days apixaban (Eliquis) 5 mg PO BID atorvastatin 40 mg PO DAILY cholecalciferol (vitamin D3) 25 mcg PO DAILY lisinopril 20 mg PO DAILY mecobalamin (vitamin B12) 1,000 mcg PO DAILY HPI Comments Details: Steve returns for follow-up. In May 2024, he was admitted for word finding difficulties and frustration with speaking. He was diagnosed with stroke. He also has slight troponin leak and treated as NSTEMI. He was kept on IV heparin drip, aspirin/statins. It seems to have recovered from that. Then underwent implantable loop recorder for monitoring for any atrial fibrillation. It was indeed positive and he has been put on Eliquis. Otherwise, he states that he is doing quite well. He has got no cardiac symptoms or any other concerns. [facility] Medical History Spinal stenosis Carotid stenosis, left Multiple cerebral infarctions Prostate cancer Arthritis HTN (hypertension) Peripheral neuropathy Multifactorial gait disorder CVA (cerebral vascular accident) Lumbar back pain Surgical History No pertinent past surgical history Family History Father Smoker Mother No problems noted. Brother No problems noted. Daughter No problems noted. Daughter No problems noted. Maternal Grandfather No problems noted. Maternal Grandmother No problems noted. Paternal Grandfather No problems noted. Paternal Grandmother No problems noted. Sister No problems noted. Sister No problems noted. Social History Household Members: Significant Other Housing: House Do you presently have visiting nurse or other home services: No Alcohol intake: current Alcohol intake frequency: 0-2 drinks per day Alcohol type: wine Patient Tobacco Use Status: Never used Tobacco e-Cigarette/Vaping Use: Never Used service: Yes Current occupational status: retired Cognitive needs: No Hearing needs: No Vision needs: Yes Review of Systems Const Denies chills, Denies fatigue, Denies fever(s), Denies frequent falls, Denies weakness, Denies weight gain and Denies weight loss ENT Denies dizziness Card Denies chest pain, Denies leg edema, Denies lightheadedness, Denies palpitations, Denies dyspnea and Denies dyspnea on exertion Resp Denies cough, Denies dyspnea and Denies dyspnea on exertion GI Denies hematochezia Musc Denies abnormal gait, Denies muscle weakness, Denies numbness, Denies radiating pain into limb and Denies tingling Neuro Denies abnormal gait, Denies dizziness, Denies frequent falls, Denies numbness, Denies tingling and Denies weakness Endo Denies fatigue and Denies palpitations Physical Exam Vital Signs: Last Vital Signs Pulse 82 04/01/25 09:53 BP 130/60 04/01/25 09:53 Const General: comfortable and no acute distress Orientation/consciousness: patient oriented x3 HEENT Other: Unremarkable Head: Yes normal to inspection Neck Neck: Yes normal visual inspection Chest Chest palpation & inspection: normal inspection of the chest Resp Auscultation: clear to auscultation bilaterally Cardio Palpation: normal PMI Heart sounds: S1 normal heart sound present, S2 normal heart sound present, no gallops, no murmurs and no rubs GI Palpation (GI): Soft to palpation Back/Spine/Pelvis Other: unremarkable Skin General skin exam: no rashes or lesions noted Neuro General: patient oriented x3 Extrem General: Yes normal to inspection Psych Mental Status: mental status grossly normal Assessment & Plan Assessment & Plan (1) Paroxysmal A-fib: Code(s): I48.0 - Paroxysmal atrial fibrillation Category: Medical Plan: Noted on device check. Continue Eliquis. (2) CVA (cerebral vascular accident): Code(s): I63.9 - Cerebral infarction, unspecified Category: Medical Plan: Seems to have recovered completely. In the neck CTA, 70% left ICA stenosis. At his age, mainly medical therapy. On statins. (3) NSTEMI (non-ST elevated myocardial infarction): Code(s): I21.4 - Non-ST elevation (NSTEMI) myocardial infarction Category: Medical Plan: Troponin elevation in setting of stroke. Clinically, he does not have angina. Considering his age and comorbidities, recommend conservative care. (4) Left ventricular hypertrophy: Code(s): I51.7 - Cardiomegaly Category: Medical Plan: Echocardiogram has severe left ventricle hypertrophy with moderate diastolic dysfunction. Likely all related to hypertension. On lisinopril. (5) Mitral annular calcification: Code(s): I34.81 - Nonrheumatic mitral (valve) annulus calcification Category: Medical Plan: Moderate mitral annular calcification on echocardiogram without any valvular dysfunction. At his age, no specific management. Plan Discussion Notes I reviewed the patient's status regarding atrial fibrillation management. The patient is tolerating the blood thinner well with no reported bruising or pain. I advised the patient to continue monitoring for signs of bleeding and to be cautious to avoid falls. A routine follow-up in 6 months was recommended. Patient was informed and verbally consented to the use of an ambient scribe for clinic note documentation during this visit. Patient Instructions: - Continue taking your blood thinner medication for atrial fibrillation. - Watch for any signs of bleeding or unusual bruising. - Be careful to prevent falls. - Please schedule a follow-up appointment for 6 months from now. Coding Level of Care Code Est Pt Level 4 (52160) Complex visit Add On G2211 Diagnoses Paroxysmal A-fib I48.0 CVA (cerebral vascular accident) I63.9 NSTEMI (non-ST elevated myocardial infarction) I21.4 Left ventricular hypertrophy I51.7 Mitral annular calcification I34.81
[2025-04-01 09:53] VITALS: BP 130/60; PULSE 82
== END 2025-04-01 10:05 | disposition home or self-care (01) ==
LOC: HO.HCS 09:48
PROVIDERS: PCP Nurse Practitioner Family; Visit Provider Internal Medicine
DX: I48.0 Paroxysmal atrial fibrillation (principal); I63.9 Cerebral infarction, unspecified; I21.4 Non-ST elevation (NSTEMI) myocardial infarction; I51.7 Cardiomegaly; I34.81 Nonrheumatic mitral (valve) annulus calcification
CPT/HCPCS: 99214; G2211

== ENCOUNTER → 2025-04-01 09:47 | Outpatient (BNVA) | payer MEDICARE, SELFPAY | PROVIDERS: PCP Nurse Practitioner Family; Visit Provider Internal Medicine | DX: I21.4 Non-ST elevation (NSTEMI) myocardial infarction (principal); I48.0 Paroxysmal atrial fibrillation; I63.9 Cerebral infarction, unspecified; I51.7 Cardiomegaly; I34.81 Nonrheumatic mitral (valve) annulus calcification | CPT/HCPCS: 99212 ==

== ENCOUNTER 2025-04-02 14:26 | Outpatient (AMB) | payer MEDICARE, SELFPAY ==
[2025-04-02 14:25] VITALS: BP 110/64; PULSE 88; RESP 16; O2SAT 97
--- NOTE | 2025-04-02 14:25 | A.OFFPC_ITS ---
Vital Signs 04/02/25 14:25 Height 5 ft 1 in BP 110/64 Blood Pressure Location Lt brachial Position Sitting Respiration 16 Pulse 88 Pulse Source Pulse Oximeter Pulse Oximetry (%) 97 Oxygen Delivery Method Room Air Intake Visit Reasons: 6m follow up Phy Therapist Required: No Allergies No Known Allergies (No Known Allergies*) Allergy (Verified 04/02/25 14:29) Tobacco use date assessed: 06/05/24 Fall risk assessment: No Falls in past year Last assessed Fall Risk: 04/02/25 Dental Screening Dental Screen Date: 05/27/24 Did you have a dental visit in the last 12 months?: No Did you have a dental problem in the last 6 months where you did not have access to dental care?: No HPI 6m follow up HPI Details Chief Complaint The patient presents for a follow-up visit and is feeling well. History of Present Illness The patient is an 89 year old individual presenting for a follow-up visit. The patient is reportedly feeling great and is in good spirits, denying any dizziness, chest pain, dyspnea, or bleeding from the bowels or bladder. A recent drop in hemoglobin and hematocrit was noted, prompting further evaluation for anemia. denied any recent surgical procedures The patient has a history of lumbar stenosis and utilizes a wheelchair, but is reportedly doing well. Social History - The patient was accompanied by the pat myra's . - The patient uses a wheelchair for [employer] due to lumbar stenosis. Health Maintenance Review of Systems - General: Reports feeling great and is in good spirits. - Cardiovascular: Denies chest pain. - Respiratory: Denies shortness of breat h. - Gastrointestinal: Denies bleeding from bowels. - Genitourinary: Denies bleeding from bl adder. - Neurological: Denies dizziness. Physical Exam General: Cooperative, healthy appearing, comfortable, no acute distress and well developed Orientation: Patient oriented x3 Limitations: Patient is in a wheelchair Head: Normal to inspection Ears: Hearing grossly normal bilaterally Nose: Normal external nose present Face and sinus: Normal facial exam Eyes: Appearance normal, both eyes and all related structures Neck: Normal visual inspection and Yes full ROM Respiratory: Normal respiratory effort and able to speak in complete sentences. Clear to auscultation bilaterally Cardiovascular: Regular rate and rhythm. Normal S1 and S2 GI: Normal to inspection. Soft to palpation and nontender Skin: No rashes or lesions noted Neuro: Patient oriented x3 Extremities: Normal to inspection Results - Labs: Recent labs showed a drop in hem oglobin and hematocrit. Plan 1. anemia (drop in hgb) The patient has had a recent drop in hemoglobin and hematocrit but is currently asymptomatic, denying dizziness, chest pain, shortness of breath, or bleeding. To further assess for ongoing chronic anemia, labs will be repeated next week, including a CBC, iron, and ferritin. 2. Lumbar Stenosis The patient has a known history of lumbar stenosis and uses a wheelchair. The patient is reportedly doing well with this condition, and no changes to the current management were discussed. Discussion Notes I discussed the recent drop in the patient's hemoglobin and hematocrit. Although the patient is clinically well and asymptomatic, I recommended further investigation. I ordered repeat labs for next week, including a CBC, iron, and ferritin, to assess for ongoing chronic anemia. We noted that the patient is doing well despite the history of lumbar stenosis. Patient Instructions - Please go to the lab next week to have your blood drawn. - These tests will check your blood coun t and iron levels to investigate your anemia. [facility] Medical History Spinal stenosis Carotid stenosis, left Multiple cerebral infarctions Prostate cancer Arthritis HTN (hypertension) Peripheral neuropathy Multifactorial gait disorder CVA (cerebral vascular accident) Lumbar back pain Surgical History No pertinent past surgical history Family History Father Smoker Mother No problems noted. Brother No problems noted. Daughter No problems noted. Daughter No problems noted. Maternal Grandfather No problems noted. Maternal Grandmother No problems noted. Paternal Grandfather No problems noted. Paternal Grandmother No problems noted. Sister No problems noted. Sister No problems noted. Social History Household Members: Significant Other Housing: House Do you presently have visiting nurse or other home services: No Alcohol intake: current Alcohol intake frequency: 0-2 drinks per day Alcohol type: wine Patient Tobacco Use Status: Never used Tobacco e-Cigarette/Vaping Use: Never Used service: Yes Current occupational status: retired Cognitive needs: No Hearing needs: No Vision needs: Yes Questionnaire Thrive Questionnaire Date Thrive assessed: 05/27/24 NABEEL-7 AMB Questionnaire NABEEL-7 Date NABEEL - 7 assessed: 05/27/24 Source: Developed by Drs. Adam Guy, Maral Marks, Shad Washington and colleagues, with an educational zenobia from [employer]. Physical exam (Primary Care) Vital Signs: Last Vital Signs Pulse 88 04/02/25 14:25 Resp 16 04/02/25 14:25 BP 110/64 04/02/25 14:25 Pulse Ox 97 04/02/25 14:25 Oxygen Delivery Method Room Air 04/02/25 14:25 Tobacco/Smoking Status: Tobacco use Status Tobacco use date assessed 06/05/24 04/02/25 14:28 Patient Tobacco Use Status Never used Tobacco 04/02/25 14:28 e-Cigarette/Vaping Use Never Used 04/02/25 14:28 Thrive Assessment: Date of Thrive Assessment Date Thrive assessed 05/27/24 04/02/25 14:28 Coding Level of Care Code Est Pt Level 3 (51973) Diagnoses Anemia D64.9 Drop in hemoglobin R71.0 Assessment & Plan Assessment & Plan (1) Anemia: Code(s): D64.9 - Anemia, unspecified Category: Medical (2) Drop in hemoglobin: Code(s): R71.0 - Precipitous drop in hematocrit Category: Medical Plan .
== END 2025-04-02 15:33 | disposition home or self-care (01) ==
LOC: HO.HMCC 14:26
PROVIDERS: PCP Nurse Practitioner Family; Visit Provider Nurse Practitioner Family
DX: D64.9 Anemia, unspecified (principal); R71.0 Precipitous drop in hematocrit

== ENCOUNTER → 2025-04-02 14:26 | Outpatient (BNVA) | payer MEDICARE, SELFPAY | PROVIDERS: PCP Nurse Practitioner Family; Visit Provider Nurse Practitioner Family | DX: M48.061 Spinal stenosis, lumbar region without neurogenic claudication (principal); D64.9 Anemia, unspecified; Z99.3 Dependence on wheelchair | CPT/HCPCS: 99212 ==

== ENCOUNTER → 2025-04-08 09:24 | Outpatient (BNV) | payer MEDICARE, SELFPAY | PROVIDERS: PCP Nurse Practitioner Family; Visit Provider Internal Medicine | DX: I63.9 Cerebral infarction, unspecified (principal); Z95.818 Presence of other cardiac implants and grafts | CPT/HCPCS: 93298 ==

== ENCOUNTER 2025-04-11 11:43 | Outpatient (REF) | payer MEDICARE, SELFPAY ==
[2025-04-11 13:04] LABS: MANUAL DIFF FLAG NO
[2025-04-11 13:29] LABS: Hematocrit 32.2 % (42.0-52.0); Hemoglobin 10.3 g/dl (14.0-18.0); Imm Gran Abs Auto 0.01 X10*3/uL (0.00-0.03); Imm Gran Pct Auto 0.2 % (0.0-0.4); Lymphocytes Absolute Auto 1.2 X10*3/uL (1.2-4.9); Mean Corpuscular HGB Conc 32.0 g/dl (31.0-36.0); Mean Corpuscular Hemoglobin 31.1 pg (27.0-33.0); Mean Corpuscular Volume 97.3 fL (80.0-98.0); NRBC Abs Auto 0.000 X10*3/uL (0.0-0.012); NRBC Pct Auto 0.0 /100WBC (0.0-0.2); Platelet Count 203 X10*3/uL (160-400); Red Blood Count 3.31 X10*6/uL (4.60-5.80); Reticulocytes Absolute 0.054 X10*6/uL (0.026-0.095); White Blood Count 4.2 X10*3/uL (4.8-10.8)
[2025-04-11 15:02] LABS: Folate 5.5 ng/mL (> or = 4.0); Vitamin B12 1019 pg/mL (200-900)
[2025-04-11 18:56] LABS: Alanine Aminotransferase 22 U/L (0-40); Albumin Level 4.4 g/dL (3.5-5.0); Alkaline Phosphatase 66 U/L (39-117); Anion Gap 12 (12-20); Aspartate Amino Transferase 28 U/L (5-37); Blood Urea Nitrogen 22 mg/dL (9-16); Calcium 9.5 mg/dL (8.4-10.2); Carbon Dioxide 23 mmol/L (22-29); Chloride 110 mmol/L (96-108); Cholesterol 108 mg/dL (<200); Estimated Glomerular Filt Rate > 60; HDL Cholesterol 47 mg/dL (>40); Iron 52 mcg/dL (45-160); Percent Iron Saturation 18 % (15-50); Potassium 4.7 mmol/L (3.3-5.1); Sodium 140 mmol/L (135-145); Total Iron Binding Capacity 287 mcg/dL (228-428); Total Protein 7.0 g/dL (6.5-8.0); Triglycerides 51 mg/dL (<150); Unsaturated Iron Binding 235 ug/dL
[2025-04-11 18:59] LABS: Ferritin 37 ng/mL (20-250)
== END 2025-04-11 11:44 | disposition home or self-care (01) ==
LOC: HO.HMGCLDS 11:43
PROVIDERS: PCP Nurse Practitioner Family; Visit Provider Nurse Practitioner Family
DX: I10 Essential (primary) hypertension (principal); D64.9 Anemia, unspecified; E78.5 Hyperlipidemia, unspecified
CPT/HCPCS: 36415; 80053; 80061; 82607; 82728; 82746; 83540; 83615; 85025; 85045